=== PATIENT | female | born 1945 | race Caucasian/White ===

== ENCOUNTER → 2017-02-09 | Day surgery (SDC) | payer OTHER ==
[~2017-02-09] VITALS: Ht 165.1 cm; Wt 87.5 kg
[~2017-02-09] MED LIST: AMLO-110 PO; AMLO2.5T PO; ASPCH81X PO; ASPI81TA28 PO; CLR10 PO; FENTANYL CITRATE INJ 50 MCG/1 ML 2 ML VIAL ONE; FLVHFA110 INH; GABA-112 PO; HEPARIN SOD (PORCINE) 1000 UNIT/ML 10 ML VIAL ONE; HMLI7525 SC; INSDGI SC; INSU100I SC; LEVO75TA5 PO; LEVO88TA3 PO; MECL1TAB42 PO; METF1TAB53 PO; METO-217 PO; MIDAZOLAM HCL 1 MG/ML 2ML VIAL ONE; NITROGLYCERIN/D5W 100MCG/ML 20ML SYR ONE; NiCARDipine HCL INJ 2.5 MG/ML 10 ML AMP ONE; ONDANSETRON INJ 2 MG/ML 2 ML VIAL ONE; PRAV40TA PO; PRLSR20 PO; VALS320T PO
[2017-02-09 10:29] VITALS: Ht 165.1 cm; Wt 87.5 kg
[2017-02-09 10:38] VITALS: BP 170/68; PULSE 67; TEMP 36.4; O2SAT 93
--- NOTE | 2017-02-09 11:05 | History & Physical Bridge Note ---
H&P Re-Evaluation Bridge Note: I have examined the patient, reviewed the History & Physical and in the interval since the performance of the History & Physical I have noted the following changes of clinical significance: No changes noted
--- NOTE | 2017-02-09 11:05 | Procedure Note ---
Pre-Mod Sedation Assessment General Date of Moderate Sedation: February 09, 2017. Vital Signs: Vital Signs Past 12 Hours Date Time Temp Pulse Resp B/P Pulse Ox O2 Delivery O2 Flow Rate FiO2 02/09/17 10:38 36.4 67 18 170/68 93 Room Air Review Cardiovascular: regular rate, rhythm, no edema Abdomen: normal bowel sounds, non tender Lungs: chest non-tender Pre-Sedation Airway Assessment Oral Cavity: Dentures Able to Visualize Vocal Cords: Yes Short Thick Neck: No Hx of Sleep Apnea: No Smoking Status: Former Smoker Mallampati Classification: Class III ASA Classification: Class II Procedure Planning Contraindications-for Mod Sed: None Yes Notes The planned sedation has been discussed with the patient and consent obtained. I have identified the patient, determined the appropriateness of sedation and have assessed the patient immediately prior to the procedure. All medicine(s) and interventions are by my order.
--- NOTE | 2017-02-09 11:42 | Procedure Note ---
Post-Mod Sedation Assessment General Date of Moderate Sedation February 09, 2017. Vital Signs: Vital Signs Past 12 Hours Date Time Temp Pulse Resp B/P Pulse Ox O2 Delivery O2 Flow Rate FiO2 02/09/17 10:38 36.4 67 18 170/68 93 Room Air Review - Discharge Criteria Vital Signs Stable: Yes Alert/Oriented/Conversant: Yes Returned to Baseline Mental St: Yes Nausea Absent/Minimal: Yes Pain/Discomfort/Absent/Minimal: Yes Normal/Baseline Respirations: Yes Active Bleeding?: No Pt Received D/C Instructions: Yes Prescriptions Given: None Specific Proced. D/C Criteria Distal Pulses Present (Cardiac: Yes Groin site assessed-Card Cath: N/A Voided Prior To Discharge: N/A Discharged Patients Adult Escort/Transportation: Yes
--- NOTE | 2017-02-09 11:49 | Cardiac Catheterization ---
Procedure Note Procedure Date February 09, 2017. Pre-Procedure Diagnosis Positive Stress Test AUC Score 8 Post-Procedure Diagnosis Normal Coronary Arteries, Normal Intracardiac Pressures Procedure(s) Performed Coronary Angiography, Left Heart Cath Meat Washer Dr. Luciano Executive Assistant(s) Glunt Estimated Blood Loss 10 Medication(s) Fentanyl, Heparin, Nitroglycerin, Versed, Lidocaine 1% Summary of Findings Indication: Positive stress test Access: 6Fr Slender Right radial artery Catheters: Dickerson, JL 3.5 Findings: LM - Angiographically normal LAD - Luminal irregularities in proximal segment; luminal irregularities in 2nd diagonal Circumflex - Angiographically normal RCA - Dominant, large caliber vessel, angiographically normal LVEDP - 8 Arterial Closure: TR Band Summary: 1. Essentially normal coronary arteries. 2. Normal intracardiac filling pressure Recommendations: Continued ASCVD risk factor modification and follow-up with Dr. Aleman Hemodynamics Rest Ao: 135/60/90 Final Ao: 149/62/97 LV: 149/8 Recommendations Medical therapy and/or Counseling Specimens None Radiation Exposure (mGy) 1221 Contrast (mls) 55 Fluids (cc crystalloids) 80 Drains None Anesthesia Moderate Procedural Complication(s) None Disposition Chipper Operator Holding/Recovery ACC Data Cardiac Status Clinical evaluation leading to the procedure CAD Presntation: Stable angina, Positive Stress Test Anginal Classification: CCS II Heart Failure: No, NYHA Class: CCS I Cardiogenic Shock w/in 24Hrs: No Cardiac Arrest w/in 24Hrs: No Imaging studies past 6 months: Yes Stress studies past 6 months: Yes Standard Exercise Stress Test: No Stress Echocardiogram: No Stress Testing w/SPECT MPI: Yes - Positive, Risk/Extent of Ischemia (High) Cardiac CTA: No Coronary Anatomy Dominant: Right Left Main (% Stenosis): Normal LAD (% Stenosis): Normal Circumflex (% Stenosis): Normal RCA (% Stenosis): Normal Diagnostic Physician's Name: Gino Luciano MD Status: Elective Closure Device Percutaneous Entry Location: Radial Closure Device: Radial Band Recommendations: Medical therapy and/or Counseling Intraprocedure Events Significant Dissection: No Perforation: No
--- NOTE | 2017-02-09 11:50 | Discharge Instructions ---
Discharge Instructions Procedure Procedure Date: February 09, 2017. Reason for Visit: Abnormal Stress Test. Discharge Discharge Date: February 09, 2017. Discharge Diagnosis: False positive stress test Last Recorded Wt (Kilograms): 87.5 Anesthesia Post Anesthesia Instructions: If you have had IV Sedation: * Do not drive today. * Resume driving when sand cutter operator permits. * Do not make important decisions or sign legal documents today. * Call surgeon for: 1. Temperature elevations greater than 101 degrees F. 2. Uncontrollable pain. 3. Excessive bleeding. 4. Persistent nausea and vomiting. 5. Medication intolerance (nausea, vomiting or rash). * For nausea and vomiting use only clear liquids such as: tea, soda, bouillon until nausea subsides, then gradually increase diet as tolerated. * If you have any concerns or questions, call your surgeon's office. If physician is unavailable and it is an emergency, call 911 or go to the nearest emergency room. Instructions Activity Recommendations: limitations as noted below Recommended Home Diet: resume previous diet Allergies: Coded Allergies: Acetaminophen (Unverified Adverse Reaction, Unknown, Hallucinations, ) Oxycodone (Unverified Adverse Reaction, Unknown, Hallucinations, 02/09/17) Follow Up Additional Instructions: ACTIVITY RECOMMENDATIONS: It is common to feel weak and fatigue for a few days. * Do not drive or operate any motorized equipment for the next 2 days. * Limit stair usage (2 or 3 trips a day only) for the next 2 days. * Do not lift anything heavier than 10 pounds for the next three days. * Do not engage in vigorous exercise or any sports for the next five days. * You may shower the day after your procedure, but do not immerse the area for three days. Cleanse the site gently with soap and water. SPECIAL CARE INSTRUCTIONS: * You may replace the pressure dressing or band-aid the morning after the procedure. * After your procedure, it is normal to have a small bruise or small lump at the site. Examine your site daily for any change in the bruise or lump, redness, swelling, drainage or numbness. Notify your doctor if any change. BLEEDING: * If there is a small amount of bleeding at the site, lie down and apply firm pressure with a clean cloth for ten minutes. When the bleeding stops, lie quietly keeping the procedure limb straight for six hours. Notify your doctor as soon as possible. * If the bleeding does not stop after ten minutes or if there is a large amount of bleeding or spurting, call 911 immediately. Continue to lie down and hold firm pressure until help arrives. SKIN IRRITATION: * You may experience some redness and/or swelling in the area where radiation was administered. If any skin irritation occurs, please contact your family physician. FOLLOW UP VISIT: Keep any scheduled doctor appointments. Follow-up with: Dr. Aleman as scheduled [facility] Recommendations: Call your doctor if: * Temperature above 101 degrees * Pain not relieved by pain medicine ordered * There is increased drainage or redness from any incision * You have any unanswered questions or concerns. Your Doctors Instructions noted above were prepared by provider Calin Luciano. Patient Signature Section: Patient Instructions Signature Page Norma Somers Patient (or Guardian) Signature/Date: I have read and understand the instructions given to me by my caregivers. Caregiver/RN/Doctor Signature/Date: The above-named patient and/or guardian has received patient instructions on this date. + Original Patient Signature Page (only) stays with chart. Please make copy for patient.
[2017-02-09 14:15] VITALS: BP 144/60; PULSE 62; O2SAT 93
== END | disposition home or self-care (01) ==
LOC: C.CATH 10:10
PROVIDERS: ATTEND Internal Medicine Cardiovascular Disease
DX: R94.39 Abnormal result of other cardiovascular function study (principal); I44.7 Left bundle-branch block, unspecified; I10 Essential (primary) hypertension; E11.9 Type 2 diabetes mellitus without complications; Z85.72 Personal history of non-Hodgkin lymphomas; Z92.21 Personal history of antineoplastic chemotherapy; Z87.891 Personal history of nicotine dependence

== ENCOUNTER → 2017-05-06 | Outpatient (CLI) | payer OTHER ==
[~2017-05-06] MED LIST changes: -AMLO2.5T PO; -ASPCH81X PO; -FENTANYL CITRATE INJ 50 MCG/1 ML 2 ML VIAL ONE; -GABA-112 PO; -HEPARIN SOD (PORCINE) 1000 UNIT/ML 10 ML VIAL ONE; -INSU100I SC; -LEVO75TA5 PO; -MIDAZOLAM HCL 1 MG/ML 2ML VIAL ONE; -NITROGLYCERIN/D5W 100MCG/ML 20ML SYR ONE; -NiCARDipine HCL INJ 2.5 MG/ML 10 ML AMP ONE; -ONDANSETRON INJ 2 MG/ML 2 ML VIAL ONE
--- NOTE | 2017-05-12 07:55 | MAMMOGRAPHY REPORT ---
BILATERAL DIGITAL SCREENING MAMMOGRAM WITH CAD: 05/06/2017 CLINICAL HISTORY: Routine screening. Patient has no complaints. TECHNIQUE: Bilateral CC and MLO views were obtained. Current study was also evaluated with a Compute r Aided Detection (CAD) system. COMPARISON: No prior exams were available for comparison. BREAST COMPOSITION: The tissue of both breasts is almost entirely fatty. FINDINGS: There is evidence of prior reduction mammoplasty. There is a metallic linear marker clip in the upper outer anterior left breast. Scattered punctate benign-appearing microcalcifications. However, there is a 4.5 mm focal asymmetry in the upper outer middle one third of the right breast fo r which comparison to prior outside mammograms would be useful to assess stability. If the outside e xams are not obtained in a timely manner, additional spot compression tomosynthesis views and possibl e ultrasound are recommended. No other suspicious mass, architectural distortion or cluster of microcalcifications is seen bilatera lly. IMPRESSION: ACR BI-RADS CATEGORY 0: INCOMPLETE EVALUATION: NEED ADDITIONAL IMAGING EVALUATION The 4.5 mm focal asymmetry in the upper outer right breast needs comparison to prior outside mammogra ms. If the outside exams are not obtained in a timely manner, additional spot compression tomosynthes is views and possible ultrasound are recommended. The patient will be called to schedule an appointment. Approximately 10% of breast cancers are not detected with mammography. A negative mammographic report should not delay biopsy if a clinically suggestive mass is present. Carolyn Chin M.D. ay/:05/11/2017 17:31:54 Otr Driver: Rajni VIEIRA(Odilia)(Davin), [facility] letter sent: Need Priors 0 BI-RADS Code: ACR BI-RADS Category 0: Incomplete Evaluation: Need Additional Imaging Evaluation
== END | disposition home or self-care (01) ==
LOC: C.MAMM 13:51
PROVIDERS: ATTEND Family Medicine
DX: Z12.31 Encounter for screening mammogram for malignant neoplasm of breast (principal); N64.89 Other specified disorders of breast

== ENCOUNTER → 2017-05-10 | Outpatient (CLI) | payer OTHER ==
[~2017-05-10] MED LIST changes: +GADAVIST IV PRN
--- NOTE | 2017-05-10 15:23 | DIAGNOSTIC IMAGING REPORT ---
MRI LUMBAR SPINE COMBINATION CLINICAL HISTORY: Lumbar spinal stenosis. Low back pain with numbness. L5 posterior vertebral mass. TECHNIQUE: Sagittal and axial T1, T2 and STIR images were obtained. Images were acquired before and after the administration of 9 cc of intravenous Gadavist COMPARISON STUDY: No previous studies for comparison. OBSERVATIONS: The vertebral bodies and posterior elements appear intact. There is no abnormal bony signal present to suggest a marrow replacement process. L1-2: No disc protrusions or extrusions. No evidence of spinal canal or neural foraminal compromise. L2-3: No disc protrusions or extrusions. No evidence of spinal canal or neural foraminal compromise. L3-4: There is a mild circumferential disc bulge. There is marked loss in disc space height. No focal herniations are visualized. There is no significant spinal or foraminal stenosis L4-5: No disc protrusions or extrusions. No evidence of spinal canal or neural foraminal compromise. L5-S1: There is a grade 1 spondylolisthesis of L5 and S1. There is facet joint arthropathy. There is mild spinal stenosis. There is mild bilateral foraminal narrowing. Postcontrast images reveal no pathologically enhancing masses. There are bilateral renal cysts. The conus medullaris and cauda equina appear normal. IMPRESSION: Multilevel spondylitic changes. Grade 1 spondylolisthesis of L5 and S1. Mild L5-S1 spinal stenosis. Mild bilateral L5-S1 foraminal narrowing. Electronically signed by: Ezra Frank M.D. 05/10/2017 3:22 PM Dictated Date/Time: 05/10/2017 3:15 PM
== END | disposition home or self-care (01) ==
LOC: C.MRIBC 13:46
PROVIDERS: ATTEND Physical Medicine & Rehabilitation
DX: M48.06 Spinal stenosis, lumbar region (principal)

== ENCOUNTER → 2017-05-14 | Outpatient (CLI) | payer OTHER ==
[~2017-05-14] MED LIST changes: -GADAVIST IV PRN
[2017-05-15 07:23] LABS: ESTIMATED AVERAGE GLUCOSE 183 mg/dl; HA1C FLAG Normal (Normal)
== END | disposition home or self-care (01) ==
LOC: C.LAB1850 16:13
PROVIDERS: ATTEND Family Medicine
DX: E11.9 Type 2 diabetes mellitus without complications (principal)

== ENCOUNTER → 2017-06-24 | Outpatient (CLI) | payer OTHER ==
--- NOTE | 2017-06-24 13:56 | MAMMOGRAPHY REPORT ---
UNILATERAL RIGHT DIGITAL DIAGNOSTIC MAMMOGRAM TOMOSYNTHESIS AND TARGETED RIGHT ULTRASOUND: 06/24/2017 CLINICAL HISTORY: Callback from screening mammogram for right breast asymmetry. TECHNIQUE: Breast tomosynthesis in addition to standard 2D mammography was performed. Spot compress ion right CC and MLO 2-D and tomosynthesis images were obtained. COMPARISON: Comparison is made to exam dated: 05/06/2017 mammogram - [facility]. BREAST COMPOSITION: The tissue of the right breast is almost entirely fatty. FINDINGS: The previously described focal asymmetry in the right upper outer quadrant effaces on the a dditional spot compression views, with no suspicious mass, architectural distortion, or other suspici ous findings seen on the additional images. A fat density round circumscribed 4 mm mass is seen with in the right superior anterior breast on the MLO tomosynthesis images, consistent with a benign oil c yst. Targeted ultrasound was performed of the right upper outer quadrant of the region of the mammographic asymmetry. No suspicious masses or other suspicious sonographic abnormalities are evident. In the right breast at 10:00, 3 cm from the nipple, there is an incidental round circumscribed anechoic 3 x 2 mm mass. This corresponds with the fat density mammographic mass and is consistent with a benign o il cyst, likely related to the prior reduction mammoplasty. IMPRESSION: ACR BI-RADS CATEGORY 2: BENIGN, TARGETED ULTRASOUND ACR BI-RADS CATEGORY 2: BENIGN The right breast asymmetry effaces on the additional views, without corresponding suspicious sonograp hic abnormality evident. Findings are benign and compatible with normal fibroglandular tissue. Ther e is no mammographic or targeted sonographic evidence of malignancy. A 1 year screening mammogram is recommended. The patient has been verbally notified of the results. Approximately 10% of breast cancers are not detected with mammography. A negative mammographic report should not delay biopsy if a clinically suggestive mass is present. Avril Cai M.D. /:06/24/2017 11:39:30 Boxing And Pressing Supervisor: Purvi Carter, [facility] letter sent: Normal 1/2 BI-RADS Code: ACR BI-RADS Category 2: Benign Ultrasound BI-RADS: ACR BI-RADS Category 2: Benign
== END | disposition home or self-care (01) ==
LOC: C.MAMM 10:58
PROVIDERS: ATTEND Family Medicine
DX: N64.89 Other specified disorders of breast (principal)

== ENCOUNTER → 2017-08-20 | Day surgery (SDC) | payer OTHER ==
[2017-08-16 10:45] VITALS: Ht 160 cm; Wt 90.9 kg
[~2017-08-20] VITALS: Ht 160 cm; Wt 90.9 kg
[~2017-08-20] MED LIST changes: -AMLO-110 PO; +AMLO2.5T PO; +ASPCH81X PO; -ASPI81TA28 PO; +BUPIVACAINE 0.25% 2.5MG/ML PF 10 ML VIAL ONE; -CLR10 PO; -FLVHFA110 INH; +GABA-112 PO; -HMLI7525 SC; +INSU100I SC; +LEVO75TA5 PO; -LEVO88TA3 PO; +LIDOCAINE MPF 1% INJ 30 ML SDV (L&D) INFIL ONE; -MECL1TAB42 PO; -METF1TAB53 PO
[2017-08-20 14:30] VITALS: TEMP 37.1
--- NOTE | 2017-08-20 14:41 | Discharge Instructions ---
Discharge Instructions Date of Service Aug 20, 2017. Visit Reason for Visit: Lumbar Spondylolisthesis Discharge Discharge Diagnosis / Problem: low back pain Discharge Goals Goal(s): Decrease discomfort, Improve function Activity Recommendations Activity Limitations: resume your previous activity Anesthesia . Post Anesthesia Instructions: If you have had General Anesthesia or IV Sedation: * Do not drive today. * Resume driving when surgeon permits. * Do not make important decisions or sign legal documents today. * Call surgeon for: 1. Temperature elevations greater than 101 degrees F. 2. Uncontrollable pain. 3. Excessive bleeding. 4. Persistent nausea and vomiting. 5. Medication intolerance (nausea, vomiting or rash). * For nausea and vomiting use only clear liquids such as: tea, soda, bouillon until nausea subsides, then gradually increase diet as tolerated. * If you have any concerns or questions, call your surgeon's office. If physician is unavailable and it is an emergency, call 911 or go to the nearest emergency room. . Diet Recommendations Recommended Home Diet: resume previous diet Procedures Procedures Performed: BILATERAL L5-S1 MEDIAL BRANCH BLOCK Pending Studies Studies pending at discharge: no Medical Emergencies . Who to Call and When: Medical Emergencies: If at any time you feel your situation is an emergency, please call 911 immediately. . Non-Emergent Contact Non-Emergency issues call your: Specialist . . "Provider Documentation" section prepared by Ender Moctezuma. .
[2017-08-20 14:47] VITALS: BP 153/73; PULSE 56; O2SAT 95
--- NOTE | 2017-08-20 15:00 | OPERATIVE REPORT ---
DATE OF OPERATION: 08/20/2017 PREOPERATIVE DIAGNOSES: Chronic low back pain and bilateral L5-S1 facet arthropathy. INDICATIONS: The patient is a 71-year-old white female who has chronic low back pain. Imaging study reveals significant facet arthropathy with an increased facet joint signal distally. Her physical examination correlates with this. She had previous epidural steroid injections done in [place] that were not helpful for her pain. She presents today as the etiology of her pain is felt to be generated in the facet joints. She presents today for blocking to confirm this. PHYSICAL EXAMINATION: GENERAL: Pleasant female seated comfortably. MUSCULOSKELETAL: Lumbar paraspinal muscles were palpated and noted be tender, worse with extension and rotation, particularly in the L5-S1 region bilaterally. Sciatic notches were nontender. No focal weakness. CONSENT: Verbal and written consent was obtained from the patient. Risks and benefits were reviewed. Risks include, but are not limited to abscess and allergic reaction. She wishes to proceed. DESCRIPTION OF PROCEDURE: The patient was taken back to the special procedures room of the [facility], where she was maintained in a prone position. Backside was cleansed with Betadine x3 and a dry sterile dressing was applied. Fluoroscope was used to identify the L5 transverse process and the sacral ala on the left side. Overlying skin was anesthetized with 1.25 mL of lidocaine 1% with a 25-gauge 1-1/2 inch needle. A 25-gauge 3-1/2 inch spinal needle was then directed under fluoroscopic guidance contacting the bone at each site. It was then injected after negative aspiration with 1 mL of bupivacaine 0.25%. The right L5 transverse process junction and the right sacral ala were then fluoroscopically identified. Overlying skin was anesthetized with 1.25 mL of lidocaine 1% with a 25-gauge 1-1/2 inch needle. A 25-gauge 3-1/2 inch spinal needle was then directed contacting bone on each site and was injected with a mL of bupivacaine 0.25%. Injections were well tolerated. DISPOSITION: 1. The patient was taken out into the discharge recovery area, where she will be discharged home once discharge criteria have been met. 2. She will follow up in the [facility] office in 4 weeks' time. She has been asked to keep a pain diary of next 48 hours to determine the amount of pain relief that is achieved. I attest to the content of the Intraoperative Record and any orders documented therein. Any exception s are noted below.
== END | disposition home or self-care (01) ==
LOC: X.SURG 13:12
PROVIDERS: ATTEND Physical Medicine & Rehabilitation
DX: M43.17 Spondylolisthesis, lumbosacral region (principal); M54.16 Radiculopathy, lumbar region; M54.5 Low back pain; G89.29 Other chronic pain; Z79.82 Long term (current) use of aspirin

== ENCOUNTER → 2017-12-13 | Day surgery (SDC) | payer OTHER ==
[2017-11-30 08:58] VITALS: Ht 160 cm; Wt 90.9 kg
[~2017-12-13] VITALS: Ht 160 cm; Wt 90.9 kg
[~2017-12-13] MED LIST changes: -BUPIVACAINE 0.25% 2.5MG/ML PF 10 ML VIAL ONE; +LIDOCAINE HCL 1% MPF 5 ML VIAL ONE; -LIDOCAINE MPF 1% INJ 30 ML SDV (L&D) INFIL ONE; +SODIUM CHLORIDE 0.9% INJ 10 ML VIAL ONE
--- NOTE | 2017-12-13 15:02 | [facility] Post Operative Brief Note ---
Immediate Operative Summary Operative Date Dec 13, 2017. Pre-Operative Diagnosis Chronic low back pain; lumbar spondylolisthesis with increased radiculopathy Post-Operative Diagnosis same Procedure(s) Performed Caudal Epidural Steroid Injection Surgeon Dr Ender Moctezuma Automobile Locator Surgeon(s) None Estimated Blood Loss 0 Findings Consistent with Post-Op Diagnosis Specimens NA Drains None Anesthesia Type Local Complication(s) none Disposition Disposition:
[2017-12-13 15:04] VITALS: TEMP 37
--- NOTE | 2017-12-13 15:04 | Discharge Instructions ---
Discharge Instructions Date of Service Dec 13, 2017. Visit Reason for Visit: Lumbar Radiculopathy Discharge Discharge Diagnosis / Problem: low back pain Discharge Goals Goal(s): Decrease discomfort, Improve function Activity Recommendations Activity Limitations: resume your previous activity Anesthesia . Post Anesthesia Instructions: If you have had General Anesthesia or IV Sedation: * Do not drive today. * Resume driving when surgeon permits. * Do not make important decisions or sign legal documents today. * Call surgeon for: 1. Temperature elevations greater than 101 degrees F. 2. Uncontrollable pain. 3. Excessive bleeding. 4. Persistent nausea and vomiting. 5. Medication intolerance (nausea, vomiting or rash). * For nausea and vomiting use only clear liquids such as: tea, soda, bouillon until nausea subsides, then gradually increase diet as tolerated. * If you have any concerns or questions, call your surgeon's office. If physician is unavailable and it is an emergency, call 911 or go to the nearest emergency room. . Diet Recommendations Recommended Home Diet: resume previous diet Procedures Procedures Performed: Caudal Epidural Steroid Injection Pending Studies Studies pending at discharge: no Medical Emergencies . Who to Call and When: Medical Emergencies: If at any time you feel your situation is an emergency, please call 911 immediately. . Non-Emergent Contact Non-Emergency issues call your: Specialist . . "Provider Documentation" section prepared by Ender Moctezuma. .
[2017-12-13 15:25] VITALS: BP 165/82; PULSE 67; O2SAT 95
--- NOTE | 2017-12-13 17:09 | OPERATIVE REPORT ---
DATE OF OPERATION: 12/13/2017 PREOPERATIVE DIAGNOSES: Chronic low back pain, lumbar spondylolisthesis with a bilateral radiculopathy. POSTOPERATIVE DIAGNOSES: Same. PROCEDURE: Caudal epidural steroid injection under fluoroscopic guidance. INDICATIONS: The patient is a 72-year-old white female who is followed for chronic low back pain, lumbar spondylolisthesis and radiculopathy. She was describing increased radicular problems on 12/06/2017 that was bad as a 10/10 at times. She presents today for an epidural to provide her with relief of the proximal radicular pain that she experiences. PHYSICAL EXAMINATION: Pleasant female seated comfortably. Sciatic notch sensitivity bilaterally radiates along the proximal L5 dermatomal distribution. She is without focal weakness. CONSENT: Verbal and written consent was obtained from the patient. Risks and benefits were reviewed. Risks include but are not limited to epidural abscess, epidural hematoma, allergic reaction, dural puncture. The patient wishes to proceed. PROCEDURE: The patient was taken back to the special procedures room of the [facility] where she was maintained in a prone position. Backside was cleansed with Betadine x3 and a dry sterile dressing was applied. Fluoroscope was used to identify the sacral hiatus and overlying skin was anesthetized with 5 mL of lidocaine 1% with 25 gauge 1.5 inch needle. A 25 gauge 3.5 inch spinal needle was then directed under fluoroscopic guidance lateral guidance into the sacral hiatus and into the canal about 3.25 inches. She then underwent injection after negative aspiration of 40 mg Depo-Medrol, 4 mL of preservative free sodium chloride. Injection was well tolerated. DISPOSITION: 1. The patient is taken out into the discharge recovery area where she will be discharged home once discharge criteria are met. 2. Follow up in the [facility] office in 4 weeks' time. I attest to the content of the Intraoperative Record and any orders documented therein. Any exception s are noted below.
== END | disposition home or self-care (01) ==
LOC: X.SURG 13:31
PROVIDERS: ATTEND Physical Medicine & Rehabilitation
DX: M43.16 Spondylolisthesis, lumbar region (principal); M54.16 Radiculopathy, lumbar region; Z79.82 Long term (current) use of aspirin; Z79.4 Long term (current) use of insulin; Z79.899 Other long term (current) drug therapy

== ENCOUNTER → 2018-04-12 | Outpatient (CLI) | payer OTHER ==
[~2018-04-12] MED LIST changes: -GABA-112 PO; -LIDOCAINE HCL 1% MPF 5 ML VIAL ONE; -SODIUM CHLORIDE 0.9% INJ 10 ML VIAL ONE
--- NOTE | 2018-04-12 15:45 | DIAGNOSTIC IMAGING REPORT ---
R FOOT 2 VIEWS CLINICAL HISTORY: XAY FOOT 2 VIEWS RIGHT pain COMPARISON: None. DISCUSSION: The bones and joint spaces appear intact. There is no evidence of fracture, dislocation or bony disease. Small heel spur. IMPRESSION: Small heel spur. Otherwise negative study. The above report was generated using voice recognition software. It may contain grammatical, syntax or spelling errors. Electronically signed by: Ian Jean Baptiste M.D. 04/12/2018 3:44 PM Dictated Date/Time: 04/12/2018 3:43 PM
== END | disposition home or self-care (01) ==
LOC: C.LAB1850 15:25
PROVIDERS: ATTEND Family Medicine
DX: M79.671 Pain in right foot (principal)

== ENCOUNTER 2019-01-30 09:39 | Inpatient (IN) ==
[2019-01-30 10:46] LABS: Basophils # (auto) 0.03 K/uL (0-0.2); Basophils % (auto) 0.6 %; Eosinophils # (auto) 0.42 K/uL (0-0.5); Eosinophils % (auto) 7.9 %; Hematocrit (blood only) 38.6 % (37-47); Hemoglobin 13.3 g/dL (12.0-16.0); Immature Granulocytes # (auto) 0.01 K/uL (0.00-0.02); Immature Granulocytes % (auto) 0.2 %; Lymphocytes # (auto) 1.84 K/uL (1.2-3.4); Lymphocytes % (auto) 34.7 %; Mean Corpuscular Hgb Conc 34.5 g/dL (32-36); Mean Corpuscular Volume 83.7 fL (80-100); Mean Platelet Volume 10.8 fL (7.4-10.4); Monocytes # (auto) 0.48 K/uL (0.11-0.59); Neutrophils # (auto) 2.53 K/uL (1.4-6.5); Neutrophils % (auto) 47.6 %; Platelet Count 172 K/uL (130-400); RDW Coefficient of Variation 14.1 % (11.5-14.5); RDW Standard Deviation 43.2 fL (36.4-46.3); Red Blood Count 4.61 M/uL (4.2-5.4); White Blood Count 5.31 K/uL (4.8-10.8)
[2019-01-30 10:57] LABS: Partial Thromboplastin Time 25.8 Seconds (21.0-31.0)
[2019-01-30 11:03] LABS: Albumin Level 3.5 gm/dl (3.4-5.0); BUN Creatinine Ratio 18.2 (10-20); Calcium 9.2 mg/dl (8.5-10.1); Est GFR (African American) 54.5
[2019-01-30 11:06] LABS: Bilirubin,Total 0.3 mg/dl (0.2-1); Globulin 3.4 gm/dl (2.5-4.0); Total Protein 6.9 gm/dl (6.4-8.2)
--- NOTE | 2019-01-30 11:17 | XRay Report ---
XR chest 1V portable CLINICAL HISTORY: cough dyspnea COMPARISON STUDY: No previous studies for comparison. FINDINGS: Mild cardiomegaly. Diaphragms smooth. Lungs are clear. IMPRESSION: Mild cardiomegaly. Otherwise negative study. The above report was generated using voice recognition software. It may contain grammatical, syntax or spelling errors. Electronically signed by: Ian Jean Baptiste M.D. 01/30/2019 11:16 AM
--- OUTSIDE RECORDS SUMMARY | 2019-01-30 11:54 | External Medical Summary | Continuity of Care Document ---
:1945 Author Name Gertrudis Mazariegos, Provider Address Unavailable Unavailable , Care Team Providers Name Role Phone NonMGANGAG Delilah, Provider Unavailable [email or web address] Unavailable Unavailable Problems Abnormal nuclear stress test (794.39) (R94.39) Diabetes mellitus (250.00) (E11.9) LBBB (left bundle branch block) (426.3) (I44.7) Hypercholesterolemia (272.0) (E78.00) CAD (coronary artery disease) (414.00) (I25.10) LVH (left ventricular hypertrophy) (429.3) (I51.7) Hypertension (401.9) (I10) Allergies and Adverse Reactions Percocet TABS (Allergy) Prinivil TABS (Allergy) Reaction: Cough Zithromax Z-Elliott TABS (Allergy) Medications Medications not documented Procedures Procedures not documented Immunizations Immunizations not documented Social History - Smoking Status Former smoker Plan of Treatment Planned Observations Planned Goals not documented Results No Known Results Results not documented Encounters Appointment; Gino Luciano M.D. 09-Feb-2017 11:00 Encounter Diagnosis: Problem not documented
--- NOTE | 2019-01-30 12:07 | CT Scan Report ---
CT head/brain wo con CLINICAL HISTORY: 73 years-old Female presenting with stroke symptoms yesterday at 4:30 or 5:00 PM, l eft leg and left arm numbness, persistent numbness since that time, some left leg weakness. TECHNIQUE: Multidetector CT imaging of the head was performed without the use of intravenous contrast . IV contrast: None. One or more dose lowering techniques were used consistent with the principles of ALARA (as low as reasonably achievable), including automatic exposure control, mA or kV adjustment t o individual patient size, and/or use of iterative reconstruction. COMPARISON: None. CT DOSE (mGy.cm): The estimated cumulative dose is 740.19 mGy.cm. FINDINGS: [employer] topogram: Unremarkable. Ventricles and sulci normal in size. No hemorrhage. Old lacunar infarct in the body of the right caud ate. Possible additional old lacunar infarct in the right thalamus. No acute territorial infarct. No mass effect or midline shift. No extra-axial fluid collection. Paranasal sinuses and mastoid air cell s clear. Calvarium intact. Intracranial atherosclerosis noted. IMPRESSION: 1. No acute intracranial abnormality. No hemorrhage. 2. Suspected old lacunar infarcts in the right body of the caudate and right thalamus. Electronically signed by: Bill Galvan M.D. 01/30/2019 12:05 PM
[2019-01-30] MEDS ORDERED: ASPIRIN CHEW 324 MG PO STA (13:05)
--- NOTE | 2019-01-30 14:14 | History & Physical Report ---
Date of Service January 30, 2019 Assessment & Plan (1) Stroke: Patient with new left sided deficit, symptoms started at 16:30 yesterday. Has history of HTN, HLP, DM and suspected old CVA per CT read. Concern for new CVA -Admit to PCU, cardiac monitoring, Neuro checks -Check MRI brain, MRA head and neck -Check 2D echocardiogram -Check lipid panel and HgAIC -Limb restriction to left side -Swallow evaluation, aspiration precautions -Start Plavix 75mg po daily -Start Lipitor 40mg po daily -Will hold Carvedilol and Valsartan/HCTZ to allow for permissive hypertension -Labetalol IV PRN SBP > 200mmHg -Neurology consultation -appreciate assistance with this case Present on Admission?: Yes (2) Hypertension: Blood pressure presently 145/77 -Hold Carvedilol and Diovan for now to allow for permissive hypertension -Labetalol IV PRN -Continue to monitor Present on Admission?: Yes (3) Diabetes: Patient with DM with peripheral neuropathy. -Check HgAIC -Lantus 25u BID -ISS -CC diet as tolerated -Continue to monitor Present on Admission?: Yes (4) Dyslipidemia: Chronic -Check lipid panel -Atorvastatin 40mg po daily (5) GERD (gastroesophageal reflux disease): Chronic. Stable -Continue Protonix daily (6) Hypothyroid: Chronic. -TSH with AM labs F/E/N - Heplock. Monitor electrolytes and replete as needed. Dysphagia screening, CC diet as tolerated with aspiration precautions Ppx - SCDs to bialteral LEs, continue home Protonix Code - DNR per discussion with patient Dispo -Admit to PCU History of Present Illness Chief Complaint: left sided weakness Primary Care Provider: Moe Kraft MD Norma Somers is a pleasant 73yo C female with history of HTN, HLP and DM, remote history of NHL s/p chemotherapy now in remission presenting with stroke- like symptoms. Patient reports that yesterday afternoon around 16:30 she noticed that her LUE and LLE felt "lumpy", tingly and slightly weak. She had difficulty walking due to weakness. She took a nap in the afternoon and when she woke up the symptoms were slightly improved. This AM she decided to come to the ER because her symptoms are still present. Overall she describes a tingling sensation in her left face, arm and leg as well as weakness of her arm and leg. She had difficulty washing her face this morning. She has a slight headache which started today in the ER. She denies disturbance in vision or speech. No additional complaints at this time. Her daughter reports that her Carvedilol was recently increased. She was also recently taken off her statin. ER Course: ASA 324mg Allergies Allergy/AdvReac Type Severity Reaction Status Date / Time adhesive AdvReac Mild Redness of Verified 01/30/19 11:32 Skin oxycodone AdvReac Unknown Hallucinati Verified 01/30/19 11:32 ons Home Medications Home Medications Medication Instructions Recorded Confirmed Type Lantus U-100 Insulin 50 unit SUBCUT QPM 05/18/18 01/30/19 History Novolog U-100 Insulin aspart 12 unit SUBCUT TID 05/18/18 01/30/19 History albuterol sulfate 2 puff INHALATION Q6H PRN 05/18/18 01/30/19 History aspirin [Aspir-81] 81 mg PO QAM 05/18/18 01/30/19 History metformin 500 mg PO QPM 05/18/18 01/30/19 History omeprazole 20 mg PO BID 05/18/18 01/30/19 History carvedilol 3.125 mg PO BID 01/30/19 01/30/19 History carvedilol 6.25 mg PO BID 01/30/19 01/30/19 History levothyroxine 75 mcg PO DAILY 01/30/19 01/30/19 History valsartan-hydrochlorothiazide 1 tab PO QAM 01/30/19 01/30/19 History Past Med/Surg History Medical History Cardiac murmur Chronic back pain Diabetes mellitus, type 2 F/U PCP GERD (gastroesophageal reflux disease) History of hysterectomy VENTURA BSO Hyperlipidemia Hypertension Hypothyroidism Non-Hodgkins lymphoma DX'D 20 YRS AGO-F/U PCP NOW Osteoarthritis Peripheral neuropathy BILAT LEGS SOB (shortness of breath) on exertion Surgical History History of appendectomy History of arthroscopy R/L History of dilatation and curettage History of tonsillectomy Slow to wake up after anesthesia AND PONV Status post breast reduction BILAT Family History Family/Other Family history of diabetes mellitus Social History Preferred Language: Vincentian Communication Ability: Effective Beliefs That Will Affect Care: None Current Living Situation: Alone Other Information That Helps Us Care for You: No Feels Safe at Home: Yes Safety Concerns: Feels Safe At This Time Smoking Status: Never smoker Second Hand Exposure: No Hx Alcohol Use: Yes Alcohol type: beer and wine Hx Substance Use: No Review of Systems Review of Systems: All systems reviewed & are unremarkable except as noted in HPI & below States her LUE and LLE appear swollen Physical Exam Physical Exam: General: patient resting comfortably, NAD, non-toxic in appearance, AA&O x 4 Skin: warm, dry, intact, no rashes or lesions HEENT: NC/AT, PERRL, EOMI, anicteric sclera, conjunctiva without injection, external ear normal to inspection and nontender, nares patent, moist mucus membranes, dentition intact, no oropharyngeal lesions, neck supple, trachea midline, no LAD, no thyromegaly, no JVD Heart: +S1/S2, regular, 3/6 JOHN at 2nd right ICS with radiation to carotids and across the precordium Lungs: equal air entry bilaterally, no rales/rhonchi/wheezes Abd: +BS, soft, NT/ND, no masses/organomegaly/ascites Ext: warm, 2+ pulses in UE/LE bilaterally, no clubbing/cyanosis, trace pitting edema equal bilaterally Neuro: AA&O x 4, speech fluent and appropriate, no facial droop, CN exam with diminished sensation to light touch in left face, diminished strength with left SCM and shoulder shrug, diminished sensation to light touch in LUE and LLE, MS 4/5 in LUE and LLE, +pronator drift LUE, gait not assessed Results & Data Vital Signs (Past 12 Hours) Vital Signs Temp Pulse Pulse Resp BP BP Pulse Ox 01/30/19 13:32 62 20 127/79 98 01/30/19 12:08 68 18 177/84 H 92 01/30/19 11:13 66 20 93 01/30/19 11:06 68 20 210/98 H 95 01/30/19 09:54 36.9 C 68 20 196/94 H 93 Laboratory Results Lab Results 01/30/19 01/30/19 01/30/19 Range/Units 10:34 10:34 10:34 WBC 5.31 (4.8-10.8) K/uL RBC 4.61 (4.2-5.4) M/uL Hgb 13.3 (12.0-16.0) g/dL Hct 38.6 (37-47) % MCV 83.7 (80-100) fL MCH 28.9 (25-34) pg MCHC 34.5 (32-36) g/dL RDW Std Deviation 43.2 (36.4-46.3) fL RDW Coeff of Jose 14.1 (11.5-14.5) % Plt Count 172 (130-400) K/uL MPV 10.8 H (7.4-10.4) fL Immature Gran % (Auto) 0.2 % Neut % (Auto) 47.6 % Lymph % (Auto) 34.7 % [place] % (Auto) 9.0 % Eos % (Auto) 7.9 % Baso % (Auto) 0.6 % Immature Gran # (Auto) 0.01 (0.00-0.02) K/uL Neut # (Auto) 2.53 (1.4-6.5) K/uL Lymph # (Auto) 1.84 (1.2-3.4) K/uL [place] # (Auto) 0.48 (0.11-0.59) K/uL Eos # (Auto) 0.42 (0-0.5) K/uL Baso # (Auto) 0.03 (0-0.2) K/uL PT 10.0 (9.0-12.0) Seconds INR 1.0 (0.9-1.1) APTT 25.8 (21.0-31.0) Seconds PTT Ratio 1.0 Sodium 139 (136-145) mmol/L Potassium 4.0 (3.5-5.1) mmol/L Chloride 105 (98-107) mmol/L Carbon Dioxide 26 (21-32) mmol/L Anion Gap 8.0 (3-11) BUN 21 H (7-18) mg/dl Creatinine 1.14 (0.6-1.2) mg/dl Est Cr Clr Drug Dosing 51.0 ml/min Est GFR ( Amer) 54.5 Est GFR (Non-Af Amer) 47.0 BUN/Creatinine Ratio 18.2 (10-20) Glucose 238 H (70-99) mg/dl POC Glucose (70-99) Calcium 9.2 (8.5-10.1) mg/dl Total Bilirubin 0.3 (0.2-1) mg/dl AST 19 (15-37) U/L ALT 31 (12-78) U/L Alkaline Phosphatase 87 (45-117) U/L Total Protein 6.9 (6.4-8.2) gm/dl Albumin 3.5 (3.4-5.0) gm/dl Globulin 3.4 (2.5-4.0) gm/dl Albumin/Globulin Ratio 1.0 (0.9-2) 01/30/19 01/30/19 Range/Units 14:47 16:28 WBC (4.8-10.8) K/uL RBC (4.2-5.4) M/uL Hgb (12.0-16.0) g/dL Hct (37-47) % MCV (80-100) fL MCH (25-34) pg MCHC (32-36) g/dL RDW Std Deviation (36.4-46.3) fL RDW Coeff of Jose (11.5-14.5) % Plt Count (130-400) K/uL MPV (7.4-10.4) fL Immature Gran % (Auto) % Neut % (Auto) % Lymph % (Auto) % [place] % (Auto) % Eos % (Auto) % Baso % (Auto) % Immature Gran # (Auto) (0.00-0.02) K/uL Neut # (Auto) (1.4-6.5) K/uL Lymph # (Auto) (1.2-3.4) K/uL [place] # (Auto) (0.11-0.59) K/uL Eos # (Auto) (0-0.5) K/uL Baso # (Auto) (0-0.2) K/uL PT (9.0-12.0) Seconds INR (0.9-1.1) APTT (21.0-31.0) Seconds PTT Ratio Sodium (136-145) mmol/L Potassium (3.5-5.1) mmol/L Chloride (98-107) mmol/L Carbon Dioxide (21-32) mmol/L Anion Gap (3-11) BUN (7-18) mg/dl Creatinine (0.6-1.2) mg/dl Est Cr Clr Drug Dosing ml/min Est GFR ( Amer) Est GFR (Non-Af Amer) BUN/Creatinine Ratio (10-20) Glucose (70-99) mg/dl POC Glucose 124 H 157 H (70-99) Calcium (8.5-10.1) mg/dl Total Bilirubin (0.2-1) mg/dl AST (15-37) U/L ALT (12-78) U/L Alkaline Phosphatase (45-117) U/L Total Protein (6.4-8.2) gm/dl Albumin (3.4-5.0) gm/dl Globulin (2.5-4.0) gm/dl Albumin/Globulin Ratio (0.9-2) Diagnostic Findings XR chest 1V portable CLINICAL HISTORY: cough dyspnea COMPARISON STUDY: No previous studies for comparison. FINDINGS: Mild cardiomegaly. Diaphragms smooth. Lungs are clear. IMPRESSION: Mild cardiomegaly. Otherwise negative study. The above report was generated using voice recognition software. It may contain grammatical, syntax or spelling errors. Electronically signed by: Ian Jean Baptiste M.D. 01/30/2019 11:16 AM Dictated: 01/30/19 1115 Transcribed: 01/30/[address] head/brain wo con CLINICAL HISTORY: 73 years-old Female presenting with stroke symptoms yesterday at 4:30 or 5:00 PM, left leg and left arm numbness, persistent numbness since that time, some left leg weakness. TECHNIQUE: Multidetector CT imaging of the head was performed without the use of intravenous contrast. IV contrast: None. One or more dose lowering techniques were used consistent with the principles of ALARA (as low as reasonably achievable), including automatic exposure control, mA or kV adjustment to indiv idual patient size, and/or use of iterative reconstruction. COMPARISON: None. CT DOSE (mGy.cm): The estimated cumulative dose is 740.19 mGy.cm. FINDINGS: [employer] topogram: Unremarkable. Ventricles and sulci normal in size. No hemorrhage. Old lacunar infarct in the body of the right caudate. Possible additional old lacunar infarct in the right thalamus. No acute territorial infarct. No mass effect or midline shift. No extra-axial fluid collection. Paranasal sinuses and mastoid air cells clear. Calvarium intact. Intracranial atherosclerosis noted. IMPRESSION: 1. No acute intracranial abnormality. No hemorrhage. 2. Suspected old lacunar infarcts in the right body of the caudate and right thalamus. Electronically signed by: Bill Galvan M.D. 01/30/2019 12:05 PM Dictated: 01/30/19 1202 Transcribed: 01/30/19 1202 ECG Additional Comments: EKG with NSR, LBBB, no prior studies Code Status & VTE Plan Code Status DNR per discussion with patient VTE Prophylaxis Plan VTE Prophylaxis will be ordered: Yes (1) Diabetes Diabetes mellitus type: type 2 Diabetes mellitus usp insulin use: with usp use Diabetes mellitus complication status: with neurologic complications Diabetes mellitus complication detail: with polyneuropathy Qualified Code(s): E11.42 - Type 2 diabetes mellitus with diabetic polyneuropathy; Z79.4 - correction (current) use of insulin (2) GERD (gastroesophageal reflux disease) Esophagitis presence: esophagitis presence not specified Qualified Code(s): K21.9 - Gastro-esophageal reflux disease without esophagitis (3) Hypertension Hypertension type: essential hypertension Qualified Code(s): I10 - Essential (primary) hypertension (4) Stroke CVA mechanism: unspecified Qualified Code(s): I63.9 - Cerebral infarction, unspecified (5) Hypothyroid Hypothyroidism type: acquired Qualified Code(s): E03.9 - Hypothyroidism, unspecified
[2019-01-30] MEDS ORDERED: GLUCAGON FOR INJ 1 MG VIAL SQ PRN (14:56)
[2019-01-30] MEDS ORDERED: ALBUTEROL HFA 8 GM INHALER INH PRN (14:56)
[2019-01-30] MEDS ORDERED: GLUCOSE 10 TABS/TUBE PO PRN (14:56)
[2019-01-30] MEDS ORDERED: DEXTROSE 50% 50 ML SYRINGE IV PRN (14:56)
[2019-01-30] MEDS ORDERED: CARBOHYDRATES FOR HYPOGLYCEMIA PO PRN (14:56)
[2019-01-30] MEDS ORDERED: PHARMACIST DISCHARGE MED REC CONSULT PRN ×2 (14:56)
[2019-01-30] MEDS ORDERED: GLUCOSE 40% GEL 15 GM TUBE PO PRN (14:56)
[2019-01-30] MEDS: INSULIN ASPART 100 UNITS/ML 3 ML PEN SC SCH ×3 (15:53→22:42)
--- NOTE | 2019-01-30 16:00 | Emergency Department Note ---
Entered by Ignacia Amaral acting as a scribe for History of Present Illness General Chief complaint: Neuro Symptoms/Deficit Stated complaint: hypertension, left side numbness Time Seen by Provider: 01/30/19 10:35 Source: patient Mode of arrival: ambulatory Limitations: no limitations History of Present Illness Provider complaint: numbness Onset (ago): day(s) (yesterday) Location: upper extremity and left Radiation: extremity (leg) Pain Consistency: + other (persistent) Quality: + other (tingling) Associated symptoms: + cough and + weakness; no chest pain and no shortness of breath The patient is a 73 year old female who presents to the ER with complaints of a persistent numbness that began yesterday. The patient reports that around 1630 yesterday evening she did experience some left hand tingling. She states that shortly after she experienced numbness in her left leg as well. She notes that her symptoms have persisted since. She denies any similar episodes in the past. She also denies any chest pain or shortness of breath but reports she has had a cough for some time. Home Medications Home Medications Medication Instructions Recorded Confirmed Type Lantus U-100 Insulin 50 unit SUBCUT QPM 05/18/18 01/30/19 History Novolog U-100 Insulin aspart 12 unit SUBCUT TID 05/18/18 01/30/19 History albuterol sulfate 2 puff INHALATION Q6H PRN 05/18/18 01/30/19 History aspirin [Aspir-81] 81 mg PO QAM 05/18/18 01/30/19 History metformin 500 mg PO QPM 05/18/18 01/30/19 History omeprazole 20 mg PO BID 05/18/18 01/30/19 History carvedilol 3.125 mg PO BID 01/30/19 01/30/19 History carvedilol 6.25 mg PO BID 01/30/19 01/30/19 History levothyroxine 75 mcg PO DAILY 01/30/19 01/30/19 History valsartan-hydrochlorothiazide 1 tab PO QAM 01/30/19 01/30/19 History Allergies Allergy/AdvReac Type Severity Reaction Status Date / Time adhesive AdvReac Mild Redness of Verified 01/30/19 11:32 Skin oxycodone AdvReac Unknown Hallucinati Verified 01/30/19 11:32 ons Past Med/Surg History Medical History Cardiac murmur Chronic back pain Diabetes mellitus, type 2 F/U PCP GERD (gastroesophageal reflux disease) History of hysterectomy [facility] BSO Hyperlipidemia Hypertension Hypothyroidism Non-Hodgkins lymphoma DX'D 20 YRS AGO-F/U PCP NOW Osteoarthritis Peripheral neuropathy BILAT LEGS SOB (shortness of breath) on exertion Surgical History History of appendectomy History of arthroscopy R/L History of dilatation and curettage History of tonsillectomy Slow to wake up after anesthesia AND PONV Status post breast reduction BILAT Family History Family/Other Family history of diabetes mellitus Social History Preferred Language: Bangladeshi Communication Ability: Effective Beliefs That Will Affect Care: None Current Living Situation: Alone Other Information That Helps Us Care for You: No Feels Safe at Home: Yes Safety Concerns: Feels Safe At This Time Smoking Status: Never smoker Second Hand Exposure: No Hx Alcohol Use: Yes Alcohol type: beer and wine Hx Substance Use: No Review of Systems See HPI for pertinent positives & negatives. and A total of 10 systems reviewed and were otherwise negative Physical Exam Vital Signs Vital Signs - 24 hr 01/30/19 09:54 01/30/19 11:06 01/30/19 11:12 Temperature 36.9 C Temperature Source Oral Sepsis Recent Fever Within 48 Hours No Sepsis New/Unexplained Change in Mental Status No Sepsis Action Taken by Nursing No Action Required Pulse Rate 68 Pulse Rate [Right Finger] 68 Pulse Rhythm Regular Pulse Strength Normal Respiratory Rate 20 20 Respiratory Effort / Characteristics Non-Labored Spontaneous Non-Labored Respiratory Depth Normal Normal Respiratory Pattern Regular Blood Pressure - Lying 190/85 H Blood Pressure - Sitting 161/86 H Blood Pressure- Standing 210/98 H Blood Pressure 196/94 H Blood Pressure [Right Arm] 210/98 H Blood Pressure Mean 128 Blood Pressure Mean [Right Arm] 135 Blood Pressure Position Sitting Pulse Oximetry 93 95 Oxygen Delivery Method Room Air Room Air 01/30/19 11:13 01/30/19 12:08 01/30/19 13:32 Temperature Temperature Source Sepsis Recent Fever Within 48 Hours Sepsis New/Unexplained Change in Mental Status Sepsis Action Taken by Nursing Pulse Rate 66 Pulse Rate [Right Finger] 68 62 Pulse Rhythm Pulse Strength Respiratory Rate 20 18 20 Respiratory Effort / Characteristics Non-Labored Respiratory Depth Normal Respiratory Pattern Blood Pressure - Lying Blood Pressure - Sitting Blood Pressure- Standing Blood Pressure Blood Pressure [Right Arm] 177/84 H 127/79 Blood Pressure Mean Blood Pressure Mean [Right Arm] 115 95 Blood Pressure Position Pulse Oximetry 93 92 98 Oxygen Delivery Method Room Air Room Air Room Air General: Non-ill appearing middle aged female in no acute distress. HEENT: Normal cephalic atraumatic. Pupils are equal round and reactive to light. Extraocular movements are intact. Oropharynx is pink with moist mucous membranes. No swelling of the mouth lips or tongue. Neck: Supple with a midline trachea. No meningeal signs or stiffness, no JVD or bruits. No Stridor. Chest: Clear to auscultation bilaterally. No wheezes or rhonchi. No increased work of breathing. Heart: regular rate and rhythm. Abdomen: Soft nontender, nondistended without rebound guarding or rigidity. Extremities: No cyanosis clubbing or edema. No calf tenderness or asymmetry Spine/Back. Non tender to palpation. No CVA tenderness Skin: Good turgor without rashes. Neurologic exam: Cranial nerves two through 12 are intact. Motor and sensation are intact and symmetrical throughout. Subjective numbness in left arm and leg. Course 1036: Past medical records reviewed. The patient was evaluated in room A9A. A complete history and physical examination was performed. 1329: I reviewed the patient's case with Dr. Ko. She will evaluate the patient for further management. Administered Medications Insulin Aspart (Novolog Flexpen) 0 units SC ACHS [facility] Stop: 03/01/19 16:29 Last Admin: 01/30/19 15:53 Dose: 4 units Documented by: [id number] Cosigned by: [id number] Discontinued Medications Aspirin (Aspirin) 324 mg PO NOW STA Stop: 01/30/19 13:06 Last Admin: 01/30/19 13:17 Dose: 324 mg Documented by: [id number] Medical Decision Making Differential Diagnosis Differential diagnosis includes: TIA, intracranial process, stroke, blood clot, infection, and cardiac disease. Medical Records Attestation: I reviewed the patient's medical records. Home Medications Current Medication List: was personally reviewed by me Laboratory Data Attestation: I reviewed the patient's lab results. Result diagrams: 01/30/19 10:34 01/30/19 10:34 Lab Results 01/30/19 01/30/19 01/30/19 Range/Units 10:34 10:34 10:34 WBC 5.31 (4.8-10.8) K/uL RBC 4.61 (4.2-5.4) M/uL Hgb 13.3 (12.0-16.0) g/dL Hct 38.6 (37-47) % MCV 83.7 (80-100) fL MCH 28.9 (25-34) pg MCHC 34.5 (32-36) g/dL RDW Std Deviation 43.2 (36.4-46.3) fL RDW Coeff of Jose 14.1 (11.5-14.5) % Plt Count 172 (130-400) K/uL MPV 10.8 H (7.4-10.4) fL Immature Gran % (Auto) 0.2 % Neut % (Auto) 47.6 % Lymph % (Auto) 34.7 % Preble % (Auto) 9.0 % Eos % (Auto) 7.9 % Baso % (Auto) 0.6 % Immature Gran # (Auto) 0.01 (0.00-0.02) K/uL Neut # (Auto) 2.53 (1.4-6.5) K/uL Lymph # (Auto) 1.84 (1.2-3.4) K/uL Preble # (Auto) 0.48 (0.11-0.59) K/uL Eos # (Auto) 0.42 (0-0.5) K/uL Baso # (Auto) 0.03 (0-0.2) K/uL PT 10.0 (9.0-12.0) Seconds INR 1.0 (0.9-1.1) APTT 25.8 (21.0-31.0) Seconds PTT Ratio 1.0 Sodium 139 (136-145) mmol/L Potassium 4.0 (3.5-5.1) mmol/L Chloride 105 (98-107) mmol/L Carbon Dioxide 26 (21-32) mmol/L Anion Gap 8.0 (3-11) BUN 21 H (7-18) mg/dl Creatinine 1.14 (0.6-1.2) mg/dl Est Cr Clr Drug Dosing 51.0 ml/min Est GFR ( Amer) 54.5 Est GFR (Non-Af Amer) 47.0 BUN/Creatinine Ratio 18.2 (10-20) Glucose 238 H (70-99) mg/dl Calcium 9.2 (8.5-10.1) mg/dl Total Bilirubin 0.3 (0.2-1) mg/dl AST 19 (15-37) U/L ALT 31 (12-78) U/L Alkaline Phosphatase 87 (45-117) U/L Total Protein 6.9 (6.4-8.2) gm/dl Albumin 3.5 (3.4-5.0) gm/dl Globulin 3.4 (2.5-4.0) gm/dl Albumin/Globulin Ratio 1.0 (0.9-2) Imaging Data Radiologist's Impression: Radiology results as stated below per my review and th e radiologist's interpretation: XR chest 1V portable CLINICAL HISTORY: cough dyspnea COMPARISON STUDY: No previous studies for comparison. FINDINGS: Mild cardiomegaly. Diaphragms smooth. Lungs are clear. IMPRESSION: Mild cardiomegaly. Otherwise negative study. The above report was generated using voice recognition software. It may contain grammatical, syntax or spelling errors. Electronically signed by: Ian Jean Baptiste M.D. 01/30/2019 11:16 AM ECG Data Attestation: I personally reviewed and interpreted this ECG as follows: Indication: other (numbness) Rate (beats per minute): 67 Rhythm: normal sinus Findings: no acute ischemic change and no ectopy Comparison ECG Date: no prior available Blood Pressure Blood Pressure Findings: Elevated blood pressure Blood Pressure Disposition: further management by hospitalist [facility] Narrative This patient comes in as described above. She was placed in room 89. She is here for treatment and evaluation of left-sided numbness. It started last evening around 4 PM 30 p.m. It persisted is not any worse today. she said she had difficult time walking because her left leg felt weak there may have been some pain as well. She has no headache. She did take a baby aspirin this morning. She is on any blood thinners. No history of similar. No chest pain o r shortness of breath. On her neuro exam, she has some decreased sensation/numbness to light touch in the left arm and leg. IV access established, blood work was obtained, EKG does not suggest acute coronary syndrome or arrhythmia. Her CAT scan shows some lacunar infarcts on the right which are thought to be old however given her symptoms. I am concerned that these could be new or there could be another one that is not yet visible on the CT I do think she likely had a stroke yesterday, she is certainly outside the window for TPA or intervention at this point but will need further neurologic work-up. She was given a full-strength 324 mg aspirin here and I consulted the [facility] for admission/observation. Impression & Plan Stroke, Left sided numbness Discharge Plan Visit Data *Final* Discharge Date/Time: 01/30/19 14:21 Chief Complaint: Neuro Symptoms/Deficit Stated Complaint: hypertension, left side numbness ED Provider: Shabbir Jaime Discharge Problem: Stroke, Left sided numbness Patient Disposition: Admitted As Inpatient Discharge Instructions Interventions: ED Discharge Assessment Last Done: 01/30/19 14:21 The scribe's documentation has been prepared under my direction and personally reviewed by me in its entirety. I confirm that the note above accurately re flects all work, treatment, procedures, and medical decision making performed by me.
[2019-01-30] MEDS ORDERED: LABETALOL HCL IV 5 MG/ML 20ML IV PRN (16:50)
[2019-01-30] MEDS: PANTOprazole 40 MG TAB PO SCH (19:35)
[2019-01-30] MEDS: ACETAMINOPHEN 325 MG TAB PO PRN (19:35)
--- NOTE | 2019-01-30 21:59 | Magnetic Resonance Report ---
MR angio head wo con HISTORY: 73 years-old Female ?CVA acute strokelike symptoms with left-sided numbness and headache COMPARISON: CT head of same day TECHNIQUE: MRA of the head was obtained utilizing 3-D [id number] sequencing with MIP reformats. A ll measurements were obtained according to NASCET criteria. FINDINGS: Event Promotions Coordinator localizer images demonstrate no gross abnormality. The imaged bilateral internal carotid arteri es appear widely patent. The study is motion degraded. The middle and anterior cerebral arteries appear widely patent. Multifocal areas of apparent luminal narrowing about the bilateral middle cerebral arteries, notably at the level of the right mid to dist al M1 segment. Diminutive right A1 segment, likely developmental. Dominant left vertebral artery. The right vertebral artery appears to terminate into the right high. Approximately 50% luminal narrowing about the mid basilar artery, likely secondary to underlying atrophy chronic vascular disease. Focal area of high-grade stenosis about the right P1 segment. Approximately 50% stenosis involves the mid left P1 segment. IMPRESSION: 1. Motion degraded exam. 2. Apparent luminal narrowing about the mid to distal right M1 segment may be artifactual or secondar y to underlying atherosclerotic vascular disease. Findings could be correlated with CTA if of further clinical concern. 3. Multifocal luminal narrowing about the posterior circulation as above. 4. No aneurysm identified. The above report was generated using voice recognition software. It may contain grammatical, syntax o r spelling errors. Electronically signed by: Mor Tam M.D. 01/30/2019 9:58 PM
[2019-01-30] MEDS ORDERED: GADOBUTROL 65ML VIAL IV PRN (22:21)
[2019-01-30] MEDS: INSULIN GLARGINE SOLOSTAR 100 UNITS/ML 3 ML PEN SC SCH (22:38)
--- NOTE | 2019-01-30 22:49 | Magnetic Resonance Report ---
MR brain wo/w con HISTORY: 73 years-old Female ?CVA acute strokelike symptoms. COMPARISON: MRA of the head and neck of same day TECHNIQUE: Multiplanar multisequence MRI of the brain was obtained both with and without the use of 1 0 mL Gadavist FINDINGS: Fur Tanner localizer images demonstrate no gross abnormality. 9 mm focus of resected diffusion about the c aamir radiata of the left frontal lobe, image 14 series 4 is noted in addition to a 9 mm focus of res tricted diffusion about the right thalamus, image 12 series 4. No acute or subacute territorial infar ction. Midline structures including the corpus callosum, brainstem, optic chiasm, pituitary and pinea l glands appear unremarkable on the sagittal T1 series. No cerebellar tonsillar herniation. Degenerat carol changes are noted about the imaged cervical spine. Age-related involutional changes. Moderate scattered T2/FLAIR hyperintensities about the white matter suggest chronic microvascular ischemic disease. Study is mildly motion degraded. No acute intracrani al hemorrhage, midline shift, abnormal extra-axial collections, hydrocephalus or intra-axial mass. In determinate 7 x 4 x 5 mm focus of enhancement is noted about the left caudate head, image 12 series 1 7 image 12 series 18 with normal signal on the T2, T1 and FLAIR series. No additional abnormal enhanc ement. Major flow voids appear patent. Small bilateral mastoid effusions. Mild mucosal thickening of the eth moid air cells. Skull, soft tissues and orbits are unremarkable. IMPRESSION: 1. Acute subcentimeter infarction of the parmar radiata left frontal lobe with additional subcentimet er infarction noted about the right thalamus. 2. No acute or subacute territorial infarct, intracranial hemorrhage or midline shift. 3. Indeterminate subcentimeter focus of enhancement about the left caudate head. 3-6 month follow-up contrast-enhanced MRI of the brain recommended to further evaluate. 4. Age-related involutional changes with moderate chronic microvascular ischemic disease. The above report was generated using voice recognition software. It may contain grammatical, syntax o r spelling errors. Electronically signed by: Mor Tam M.D. 01/30/2019 10:48 PM
--- NOTE | 2019-01-30 23:06 | Magnetic Resonance Report ---
MR angio neck wo/w con HISTORY: 73 years-old Female ?CVA acute strokelike symptoms COMPARISON: MRA of the head and MRI brain of same day TECHNIQUE: MRA of the neck was obtained both with and without the use of 10 ml Gadavist. All measurem ents were obtained according to NASCET criteria. FINDINGS: Label Sewer localizer images demonstrate no gross abnormality. The heart appears enlarged. Study is motion degraded. Three-vessel morphology of the aortic arch. Bilateral common carotid arteries appear widely patent. The bilateral internal carotid arteries appear widely patent. Dominant left vertebral artery. The right vertebral artery appears to terminate within the right PICA . No aneurysm, dissection, high-grade stenosis or proximal branch occlusion identified. IMPRESSION: Unremarkable MRA of the neck without aneurysm, dissection, high-grade stenosis or proximal branch occ lusion. The above report was generated using voice recognition software. It may contain grammatical, syntax o r spelling errors. Electronically signed by: Mor Tam M.D. 01/30/2019 11:05 PM
[2019-01-31] MEDS: ACETAMINOPHEN 325 MG TAB PO PRN ×2 (00:41→08:22)
[2019-01-31 05:44] LABS: Basophils # (auto) 0.03 K/uL (0-0.2); Basophils % (auto) 0.5 %; Eosinophils # (auto) 0.54 K/uL (0-0.5); Eosinophils % (auto) 8.8 %; Hematocrit (blood only) 40.2 % (37-47); Hemoglobin 13.7 g/dL (12.0-16.0); Immature Granulocytes # (auto) 0.01 K/uL (0.00-0.02); Immature Granulocytes % (auto) 0.2 %; Lymphocytes # (auto) 2.33 K/uL (1.2-3.4); Lymphocytes % (auto) 37.9 %; Mean Corpuscular Hgb Conc 34.1 g/dL (32-36); Mean Corpuscular Volume 83.9 fL (80-100); Mean Platelet Volume 10.5 fL (7.4-10.4); Monocytes # (auto) 0.73 K/uL (0.11-0.59); Monocytes % (auto) 11.9 %; Neutrophils # (auto) 2.51 K/uL (1.4-6.5); Neutrophils % (auto) 40.7 %; Platelet Count 181 K/uL (130-400); RDW Coefficient of Variation 13.9 % (11.5-14.5); RDW Standard Deviation 42.6 fL (36.4-46.3); Red Blood Count 4.79 M/uL (4.2-5.4); White Blood Count 6.15 K/uL (4.8-10.8)
[2019-01-31 06:13] LABS: BUN Creatinine Ratio 14.8 (10-20); Calcium 8.9 mg/dl (8.5-10.1); Creatinine Clr Calc Pharmacy 50.1 ml/min; Est GFR (African American) 53.3; Potassium 3.7 mmol/L (3.5-5.1)
[2019-01-31 06:29] LABS: Estimated Average Glucose 214 mg/dl; Hemoglobin A1C 9.1 % (4.5-5.6)
[2019-01-31] MEDS ORDERED: LEVOTHYROXINE SODIUM 75 MCG TABLET PO SCH (06:30)
[2019-01-31 06:36] LABS: T4 Free Thyroxine 0.89 ng/dl (0.8-1.6)
[2019-01-31] MEDS: ATORVASTATIN 40 MG TAB PO SCH (08:13)
[2019-01-31] MEDS: PANTOprazole 40 MG TAB PO SCH ×2 (08:13→21:10)
[2019-01-31] MEDS: INSULIN ASPART 100 UNITS/ML 3 ML PEN SC SCH ×4 (08:15→21:13)
[2019-01-31] MEDS: INSULIN GLARGINE SOLOSTAR 100 UNITS/ML 3 ML PEN SC SCH ×2 (08:16→21:11)
[2019-01-31] MEDS ORDERED: CLOPIDOGREL BISULFATE 75 MG TAB PO SCH (09:00)
[2019-01-31] MEDS ORDERED: PERFLUTREN LIPID MICROSPHERE (DEFINITY) IV ONE (09:28)
--- NOTE | 2019-01-31 09:59 | Neurology Consultation ---
Date of Consultation January 31, 2019 Assessment & Plan (1) Stroke: This patient appears to have 2 acute ischemic strokes, one within the right thalamus/posterior limb of the internal capsule, and the other within the left parmar radiata/frontal lobe. She presented with a mild to moderate left- sided motor or sensory disturbance which would localize to the right thalamic infarct. The left frontal infarct seems to be asymptomatic. Diabetes, hypertension, and dyslipidemia are notable risk factors for this patient. Cardioembolism may not be completely excluded, however, given the presence of acute bilateral infarcts. Her MRI also revealed a nonspecific, incidental, small area of enhancement at the left caudate head. A follow-up contrast- enhanced MRI in 3 to 6 months is reasonable as suggested by radiology. I would recommend a CT angiogram of the head and neck. Would recommend an up-to-date echocardiogram. Further, given the possibility of cardioembolism would also consider a 30-day event monitor. Patient follows with Dr. Aleman, cardiology. Agree with switching from daily low-dose aspirin to Plavix 75 mg/day. Agree with atorvastatin as ordered. Continue with blood pressure management, avoid aggressive blood pressure reduction. Systolic blood pressure 140 to 160 mmHg appropriate for now. Consultations with speech and swallowing, PT/OT. History of Present Illness Reason for Consultation: stroke Requesting Physician: Gisel Ko DO Attending Physician: Tracey Vincent MD History of Present Illness The patient is a 73-year-old female with a chief complaint of persistent numbness and heaviness affecting the left arm and leg that began acutely Wednesday while driving her car home. She recalls having some mild difficulty walking into her house at that time as her left leg felt a bit heavy. She does not recall experiencing any facial numbness or weakness but does admit to some subtle difficulty with swallowing which seems to be new. She also complains of a mild associated frontal headache. The patient does report that her left-sided numbness and weakness seems modestly improved today. She denies any change in vision or speech. Past medical history notable for hypertension and diabetes mellitus. Allergies Allergy/AdvReac Type Severity Reaction Status Date / Time adhesive AdvReac Mild Redness of Verified 01/30/19 11:32 Skin oxycodone AdvReac Unknown Hallucinati Verified 01/30/19 11:32 ons Home Medications Home Medications Medication Instructions Recorded Confirmed Type Lantus U-100 Insulin 50 unit SUBCUT QPM 05/18/18 01/30/19 History Novolog U-100 Insulin aspart 12 unit SUBCUT TID 05/18/18 01/30/19 History albuterol sulfate 2 puff INHALATION Q6H PRN 05/18/18 01/30/19 History aspirin [Aspir-81] 81 mg PO QAM 05/18/18 01/30/19 History metformin 500 mg PO QPM 05/18/18 01/30/19 History omeprazole 20 mg PO BID 05/18/18 01/30/19 History carvedilol 3.125 mg PO BID 01/30/19 01/30/19 History carvedilol 6.25 mg PO BID 01/30/19 01/30/19 History levothyroxine 75 mcg PO DAILY 01/30/19 01/30/19 History valsartan-hydrochlorothiazide 1 tab PO QAM 01/30/19 01/30/19 History Patient History Medical History Cardiac murmur Chronic back pain Diabetes mellitus, type 2 F/U PCP GERD (gastroesophageal reflux disease) History of hysterectomy [facility] BSO Hyperlipidemia Hypertension Hypothyroidism Non-Hodgkins lymphoma DX'D 20 YRS AGO-F/U PCP NOW Osteoarthritis Peripheral neuropathy BILAT LEGS SOB (shortness of breath) on exertion Surgical History History of appendectomy History of arthroscopy R/L History of dilatation and curettage History of tonsillectomy Slow to wake up after anesthesia AND PONV Status post breast reduction BILAT Family History Family/Other Family history of diabetes mellitus Social History Preferred Language: Cambodian Communication Ability: Effective Beliefs That Will Affect Care: None Current Living Situation: Alone Other Information That Helps Us Care for You: No Feels Safe at Home: Yes Safety Concerns: Feels Safe At This Time Smoking Status: Never smoker Second Hand Exposure: No Hx Alcohol Use: Yes Alcohol type: beer and wine Hx Substance Use: No Review of Systems Constitutional: no fever and no chills Eyes: no blind spots and no diplopia Ear, Nose, Mouth, Throat: no tinnitus and no hearing loss Respiratory: no cough and no dyspnea Cardiovascular: no chest pain and no palpitations Gastrointestinal: no abdominal pain and no nausea Genitourinary: no urinary incontinence Musculoskeletal: no myalgia Integumentary: no rash and no lesions Neurologic: as per Subjective / HPI Psychiatric: no depression and no anxiety Hematologic / Lymphatic: no easy bleeding and no lymphadenopathy Physical Exam Physical Exam: The patient is a well-developed elderly female lying comfortably in bed in no acute distress. She is alert and fully oriented. Recent and remote memory intact. Patient exhibits normal attention and concentration as well as a normal spontaneous speech pattern. Patient has an age-appropriate fund of knowledge and normal vocabulary. Visual jett full to confrontation. Visual acuity normal. Pupils equal round reactive to light and accommodation. Eye movements normal. Facial sensation intact. There is no facial droop or weakness. Hearing intact. Palate elevates to midline. Shoulder shrug intact. Tongue protrudes to midline. Sensory examination reveals a relative hemisensory deficit to vibration, temperature, and light touch affecting the left arm and leg. Deep tendon reflexes are diminished for the arms and legs bilaterally. Plantar responses equivocal bilaterally. There is dysmetria with [id number] and lymi-tl-[id number] on the left. No dysmetria [id number]-[id number] or [id number]-[id number]-[id number] on the right. Ophthalmoscopic examination reveals normal-appearing optic disks and posterior segments. No papilledema or hemorrhages. Carotid pulses normal bilaterally, no bruits to auscultation. Gait and station not tested due to safety concerns. Muscle strength testing reveals very subtle weakness for the left arm and leg, primarily slow movement initiation. Patient also fixes on the left with arm roll and has some impairment of fine finger movements on the left as well. Muscle tone normal throughout. No atrophy. No abnormal movements observed. Results & Data Vital Signs (Past 12 Hours) Vital Signs Temp Pulse Pulse Resp BP Pulse Ox 01/31/19 07:16 59 L 01/31/19 07:10 36.6 C 63 18 154/61 H 90 01/31/19 04:20 36.7 C 72 18 127/62 90 01/30/19 23:13 36.6 C 76 20 128/74 92 01/30/19 22:32 72 Laboratory Results This morning's labs reviewed. WBC 6.15, hemoglobin 13.7, hematocrit 40.2, platelet count 181, sodium 139, potassium 3.7, BUN 17, creatinine 1.16, glucose 155, calcium 8.9, triglycerides 323, cholesterol 228, LDL 127, HDL 36, TSH 10.500, hemoglobin A1c yesterday was 9.[address] of the head completed January 30, 2019 revealed lacunar infarcts within the body of the right caudate and right thalamus, possibly old. No hemorrhage. Images and report reviewed. MRI of the brain completed January 30, 2019 revealed an acute subcentimeter infarct within the left parmar radiata of the frontal lobe with an additional subcentimeter infarct within the right thalamus, encroaching on the posterior limb of the internal capsule. Also noted is an indeterminate small focus of enhancement at the left caudate head. A follow-up MRI in 3 to 6 months is suggested. Study also reveals age-related involutional change with moderate chronic microvascular ischemic disease. I reviewed both the images and radiologist interpretation of this test and agree. MR angiography of the head was motion degraded but suggested some luminal narrowing at the mid to distal right M1 segment due to atherosclerotic disease. A follow-up CT angiogram was suggested, however. Atherosclerotic change of the posterior circulation also noted. MR angiography of the neck was unremarkable. No evidence of significant vascular lesion. Electrocardiogram completed yesterday revealed a normal sinus rhythm, with a left bundle branch block, 67 bpm. An outpatient echocardiogram completed January 16, 2019 revealed a left ventricular ejection fraction of 50% with severe asymmetric hypertrophy of the inferoseptum and anteroseptal consistent with hypertrophic cardiomyopathy. Abnormal septal motion consistent with intraventricular conduction delay. Hypertrophied papillary muscles observed. Grade 1 diastolic dysfunction of the left ventricle also noted. (1) Stroke CVA mechanism: unspecified Qualified Code(s): I63.9 - Cerebral infarction, unspecified
--- NOTE | 2019-01-31 18:07 | Ultrasound Report ---
US venous doppler LE CLINICAL HISTORY: 73 years-old Female presenting with r/o DVT,leg swelling, acute CVA with PFO. TECHNIQUE: Real-time grayscale and color and spectral Doppler ultrasound imaging of the veins of the bilateral lower extremities was performed. Compression and augmentation were also utilized. COMPARISON: None. FINDINGS: RIGHT: Common femoral vein: Patent. Greater saphenous vein (superficial): Patent. Deep femoral vein: Patent. Femoral vein: Patent. Popliteal vein: Patent. Calf veins: Patent. LEFT: Common femoral vein: Patent. Greater saphenous vein (superficial): Patent. Deep femoral vein: Patent. Femoral vein: Patent. Popliteal vein: Patent. Calf veins: Filling defect consistent with thrombus in one of two duplicated posterior tibial veins. The remainder of the calf veins are patent. Other: None. IMPRESSION: 1. Acute deep venous thrombosis in one of two duplicated left posterior tibial veins. Remainder of t he veins of the left lower extremity patent. 2. No deep venous thrombosis in the right lower extremity. The report will be called/faxed according to standard departmental protocol. Electronically signed by: Bill Galvan M.D. 01/31/2019 6:06 PM
[2019-01-31] MEDS ORDERED: OPTIRAY 320 125ml IV PRN (18:13)
--- NOTE | 2019-01-31 18:26 | CT Scan Report ---
CT angio head w con CLINICAL HISTORY: 73 years-old Female presenting with acute CVA,narrowing M1 segment right on MRA. TECHNIQUE: Multidetector CT angiography of the head was performed after the administration of intrave nous contrast. 3-D volumetric and/or maximum intensity projection (MIP) images were subsequently dulce nstructed for review. IV contrast: Optiray 320. One or more dose lowering techniques were used consis tent with the principles of ALARA (as low as reasonably achievable), including automatic exposure con trol, mA or kV adjustment to individual patient size, and/or use of iterative reconstruction. COMPARISON: Noncontrast CT head performed the previous day as well as contrast enhanced MR brain perf ormed the previous day. MRA performed on 01/30/2019. CT DOSE (mGy.cm): The estimated cumulative dose is 507.36. FINDINGS: Internal Review And Audit Compliance topogram: Anterior cervical fusion hardware. Anterior circulation: Atherosclerosis of the cavernous segments of the internal carotid arteries. Int racranial portions of the internal carotid arteries patent to the level of the termini. Anterior cere bral arteries patent. Hypoplastic A1 segment of the right anterior cerebral artery. Middle cerebral a rteries patent. The region of clinical concern in the distal right M1 segment proximal to the bifurca tion is widely patent. Additionally, irregularity of the left M1 segment is also widely patent. Anter ior communicating artery patent. Posterior circulation: Left dominant vertebral artery. Intradural portions of the vertebral arteries patent. Posterior inferior cerebellar arteries patent. Significant irregularity of the basilar artery , which confirms the finding on MRA, likely reflecting underlying atherosclerotic disease. Anterior i nferior cerebellar arteries poorly visualized. Superior cerebellar arteries patent. Posterior cerebra l arteries (STRETCH BOX TENDER) patent, although focal severe stenosis is evident in the distal P1 or proximal P2 se gment of the right posterior cerebral artery. Stenosis is also observed in the P2 segment of the left STRETCH BOX TENDER. Left posterior communicating artery (P-comm) patent. Right P-comm hypoplastic or aplastic Dural venous sinuses: Patent. Other: Allowing for the phase of contrast, brain parenchyma within normal limits. Calvarium intact. IMPRESSION: 1. Significant luminal irregularity with multifocal stenoses in the basilar artery confirming the fi nding on MRA, presumably atherosclerotic. 2. Severe stenosis in the distal and one proximal P2 segment of the right STRETCH BOX TENDER, presumably atheroscle rotic. 3. Stenosis of the P2 segment of the left STRETCH BOX TENDER, presumably atherosclerotic. 4. The additional findings on MRI suggesting abnormalities of the bilateral M1 segments of the middl e cerebral arteries are not confirmed on the CTA. These were therefore artifactual. 5. No focal vessel occlusion or aneurysm. Center port Electronically signed by: Bill Galvan M.D. 01/31/2019 6:24 PM
--- NOTE | 2019-01-31 18:31 | CT Scan Report ---
CT angio neck with con CLINICAL HISTORY: 73 years-old Female presenting with acute CVA. TECHNIQUE: Multidetector CT angiography of the neck was performed after the administration of intrave nous contrast. 3-D volumetric and/or maximum intensity projection (MIP) images were subsequently dulce nstructed for review. IV contrast: 121 mL of Optiray 320. One or more dose lowering techniques were u sed consistent with the principles of ALARA (as low as reasonably achievable), including automatic ex posure control, mA or kV adjustment to individual patient size, and/or use of iterative reconstructio n. Stenosis measurements were based on NASCET-like criteria (distal lumen diameter as the denominator for stenosis measurement). COMPARISON: MRA neck from the previous day. CT DOSE (mGy.cm): The estimated cumulative dose is 507.36 mGy.cm. FINDINGS: Dry Pan Feeder topogram: Unremarkable. Aortic arch: Significant calcified and noncalcified atherosclerotic plaque resulting in luminal irreg ularity of the thoracic aorta predominantly in the distal arch and proximal descending portion. Origi ns of the branch vessels including the common origin of the innominate and left common carotid artery are patent. Innominate artery: Atherosclerotic irregularity but no significant stenosis. Right subclavian artery: Patent. Right common carotid artery: Severe atherosclerotic irregularity and tortuosity of the proximal right common carotid artery. Stenosis is greatest in this portion with a minimum diameter of 3.5 mm in com parison to a normal distal diameter of 7 mm (50% stenosis). Right internal and external carotid arteries: Calcified and noncalcified atherosclerotic plaque in th e carotid bifurcation without significant stenosis of the origins of the right internal or external c arotid arteries. Remaining courses of the right ICA and ECA also widely patent. Left common carotid artery: Noncalcified atherosclerotic plaque results in significant luminal irregu larity of the proximal to mid left common carotid artery with a minimum diameter of 5 mm in compariso n to the normal distal diameter of 6.5 mm (less than 25% stenosis. Left internal and external carotid arteries: Calcified and noncalcified atherosclerotic plaque at the carotid bifurcation with patent origins of the left internal and coronal carotid arteries. Remaining courses of the left ICA and ECA widely patent. Left subclavian artery: Significant luminal irregularity arising from noncalcified atherosclerotic pl aque in the proximal course. Vertebral arteries: Left dominant vertebral artery. Only trace atherosclerotic plaque burden is evide nt beyond the proximal courses of the bilateral vertebral arteries, which remain widely patent. Other: Soft tissues of the neck normal allowing for the phase of contrast. Degenerative changes of th e cervical spine. Anterior cervical fusion hardware. Lung apices clear. IMPRESSION: 1. Significant atherosclerosis though the maximum site of stenosis, which is located in the proximal right common carotid artery, is not greater than 50%. Sites of atherosclerotic plaque are detailed a carlos. No hemodynamically significant stenosis. No focal vessel occlusion. Electronically signed by: Bill Galvan M.D. 01/31/2019 6:30 PM
[2019-01-31] MEDS ORDERED: APIXABAN 5 MG TABLET PO SCH (19:05)
--- NOTE | 2019-01-31 19:10 | Hospitalist Progress Note ---
Date of Service January 31, 2019 Assessment & Plan (1) Stroke: Patient with new left sided deficit. Has history of HTN, HLP, DM and suspected old CVA per CT read. 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, concern for paradoxical emoblus given DVT and PFO on ECHO MRA head and neck with stenoses--> CTA head and neck show 50% stenosis of the proximal right common carotid artery as well as significant basilar artery atherosclerosis as well as bilateral BEHAVIORAL HEALTH TECH stenoses but no occlusions or aneurysms -continue ASA 81 and starting Eliquis for DVT and paradoxical emboli -consult Cardio to see if SYLVIE needs to be done vs closure of PFO? Probably will just have her take Eliquis for life -Started Lipitor 40mg po daily-watch for myalgias as has had previously, could add Co Q10 if needed -continue to hold Carvedilol and Valsartan/HCTZ to allow for permissive hypertension -Labetalol IV PRN SBP > 200mmHg -Neurology consultation -appreciate assistance with this case -Continue telemetry monitoring for atrial fibrillation and recommend cardiac event monitor after discharge likely for 1 month if no atrial fibrillation found on this admission (2) Acute DVT of left tibial vein: Does have a h/o high risk colon polyps but had last colonoscopy in the fall and due for another one in afew months-on an annual screening program -is UTD on mammogram Not sedentary, no recent surgery or long trips, no personal or family history of VTE Unprovoked DVT Discussed options for anticoagulation with the patient as well as her daughter at the bedside and risk and benefits. She has no history of significant bleeding in the past and is agreeable to starting anticoagulation. -start Eliquis 10mg po bid x 7 days and then 5mg po bid -Check CTA chest for PE given sharp pains under bilat ribs going on for 3-4 weeks -needs updated mammo -checking CT C/A/P to look for cause of chest pains, upper abd pains, not feeling well for 1-2 months overall, r/o malignancy (3) Chest pain: Located under the bilateral ribs and upper abdomen for 1 month -Checking CTA chest for PE-ok for routine timing of this especially given heavy dye load with CT angiograms of the head and neck today-we will plan for CTs tomorrow -Anticoagulating her as above for DVT and she is hemodynamically stable (4) Hypertension: Blood pressures in acceptable range -Hold Carvedilol and Diovan for now to allow for permissive hypertension -Labetalol IV PRN -Continue to monitor (5) Diabetes: Patient with DM with peripheral neuropathy. HgAIC here is uncontrolled at 9.1%, with hyperglycemia here -Continue Lantus 25u BID -Tighten down correction factor and carb ratio ADA diet -Holding home metformin (6) Dyslipidemia: Chronic Lipids are quite elevated with total cholesterol 228, LDL 127, triglycerides in the 300s -Atorvastatin 40mg po daily was added (7) GERD (gastroesophageal reflux disease): Chronic. Stable -Continue Protonix daily (8) Hypothyroid: Chronic. -TSH elevated at 10.5 -increase LT4 to 88mcg and repeat TFTs in 4-6 weeks (9) Abnormal brain MRI: indeterminate lesion left caudate head-with h/o high risk polyps of colon, h/o NHL, question if could be met? -repeat brain MRI in 3 months -has repeat colonoscopy coming up soon, is due for annual mammogram (10) PFO (patent foramen ovale): As seen on echocardiogram as above Cardiology consulted as above (11) History of non-Hodgkin's lymphoma: Noted in history, in remission for many years (12) DVT prophylaxis: Now starting Eliquis as above for acute DVT Disposition-remain on telemetry PT/OT consults placed-PT recommending home with home health, OT recommending rehab Subjective Saw the patient on 2 occasions today. The first time was in the early afternoon. She reports feeling stronger in the left side and less numb. Her daughter was present and reported that the patient has had significant swelling and pain in the left leg and calf that is worse with having her feet below her when sitting in a chair for the last week. Patient also reports she has been having pains under her bilateral ribs and upper abdomen left greater than right also for several weeks. Her PCP presumably thought she had pneumonia and treated her for such with antibiotics several weeks ago. She has had a mildly productive cough also for several weeks but denies shortness of breath. I reviewed the findings of her MRI and echocardiogram with her. Later in the evening, I came back to discuss the results of the Doppler of her lower extremities and confirmed that she had a left posterior tibial DVT. She reports she is up-to-date on her mammogram is due for one soon but had one less than a year ago. She has yearly colonoscopies for high risk polyps and it has not been quite a year since her last one. Telemetry with normal sinus rhythm with rates in the 60s to 70s, no tachyarrhythmias. 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 Review of Systems Review of Systems: All systems reviewed & are unremarkable except as noted in HPI & below Physical Exam Constitutional: WD/WN, vitals as above + obese Eyes: PERRL, conjunctivae normal, anicteric sclerae EOM intact bilaterally ENMT: external ear and nose normal, oropharynx normal Ears: no hearing impairment Neck: trachea midline, no thyromegaly Thyroid: no thyroid mass and thyroid nontender Respiratory: normal respiratory effort, lungs clear to auscultation Cardiovascular: Rate/Rhythm: regular rate and regular rhythm Heart Sounds: no murmur Extremities: + calf tenderness (On the left) and + edema (Left leg with trace to 1+ pitting edema, right leg no edema) Gastrointestinal (Abdomen): normal bowel sounds, soft, nontender, no hepatosplenomegaly Musculoskeletal: Extremities: no cyanosis and no clubbing Skin: no rashes, warm and dry Neurologic: CN's II-XI intact bilaterally, deep tendon reflexes 2+ bilaterally, + focal motor deficit (4+ out of 5 strength in the proximal muscles of the left upper and lower extremities, otherwise 5 out of 5 strength throughout) and awake Motor/Sensory: no tremor Sensation decreased to light touch throughout most of the left upper and lower extremities Psychiatric: A+Ox3, euthymic affect Results & Data Vital Signs (Past 12 Hours) Vital Signs Temp Pulse Pulse Resp BP Pulse Ox 01/31/19 15:35 36.4 C L 67 20 136/58 L 90 01/31/19 12:22 36.6 C 81 19 116/72 91 01/31/19 07:16 59 L 01/31/19 07:10 36.6 C 63 18 154/61 H 90 Laboratory Results 01/31/19 01/31/19 01/31/19 Range/Units 20:42 16:30 11:38 WBC (4.8-10.8) K/uL RBC (4.2-5.4) M/uL Hgb (12.0-16.0) g/dL Hct (37-47) % MCV (80-100) fL MCH (25-34) pg MCHC (32-36) g/dL RDW Std Deviation (36.4-46.3) fL RDW Coeff of Jose (11.5-14.5) % Plt Count (130-400) K/uL MPV (7.4-10.4) fL Immature Gran % (Auto) % Neut % (Auto) % Lymph % (Auto) % [place] % (Auto) % Eos % (Auto) % Baso % (Auto) % Immature Gran # (Auto) (0.00-0.02) K/uL Neut # (Auto) (1.4-6.5) K/uL Lymph # (Auto) (1.2-3.4) K/uL [place] # (Auto) (0.11-0.59) K/uL Eos # (Auto) (0-0.5) K/uL Baso # (Auto) (0-0.2) K/uL Sodium (136-145) mmol/L Potassium (3.5-5.1) mmol/L Chloride (98-107) mmol/L Carbon Dioxide (21-32) mmol/L Anion Gap (3-11) BUN (7-18) mg/dl Creatinine (0.6-1.2) mg/dl Est Cr Clr Drug Dosing ml/min Est GFR ( Amer) Est GFR (Non-Af Amer) BUN/Creatinine Ratio (10-20) Glucose (70-99) mg/dl POC Glucose 190 H 181 H 221 H (70-99) Estimat Average Glucose mg/dl Hemoglobin A1c (4.5-5.6) % Calcium (8.5-10.1) mg/dl Triglycerides (0-150) mg/dl Cholesterol (0-200) mg/dl LDL Cholesterol, Calc mg/dl VLDL Cholesterol, Calc mg/dl HDL Cholesterol mg/dl Cholesterol/HDL Ratio TSH (0.300-4.500) uIu/ml Free T4 (0.8-1.6) ng/dl 01/31/19 01/31/19 01/31/19 Range/Units 10:20 07:20 05:30 WBC (4.8-10.8) K/uL RBC (4.2-5.4) M/uL Hgb (12.0-16.0) g/dL Hct (37-47) % MCV (80-100) fL MCH (25-34) pg MCHC (32-36) g/dL RDW Std Deviation (36.4-46.3) fL RDW Coeff of Jose (11.5-14.5) % Plt Count (130-400) K/uL MPV (7.4-10.4) fL Immature Gran % (Auto) % Neut % (Auto) % Lymph % (Auto) % [place] % (Auto) % Eos % (Auto) % Baso % (Auto) % Immature Gran # (Auto) (0.00-0.02) K/uL Neut # (Auto) (1.4-6.5) K/uL Lymph # (Auto) (1.2-3.4) K/uL [place] # (Auto) (0.11-0.59) K/uL Eos # (Auto) (0-0.5) K/uL Baso # (Auto) (0-0.2) K/uL Sodium 139 (136-145) mmol/L Potassium 3.7 (3.5-5.1) mmol/L Chloride 104 (98-107) mmol/L Carbon Dioxide 29 (21-32) mmol/L Anion Gap 6.0 (3-11) BUN 17 (7-18) mg/dl Creatinine 1.16 (0.6-1.2) mg/dl Est Cr Clr Drug Dosing 50.1 ml/min Est GFR ( Amer) 53.3 Est GFR (Non-Af Amer) 46.0 BUN/Creatinine Ratio 14.8 (10-20) Glucose 155 H (70-99) mg/dl POC Glucose 230 H 179 H (70-99) Estimat Average Glucose mg/dl Hemoglobin A1c (4.5-5.6) % Calcium 8.9 (8.5-10.1) mg/dl Triglycerides 323 H (0-150) mg/dl Cholesterol 228 H (0-200) mg/dl LDL Cholesterol, Calc 127 mg/dl VLDL Cholesterol, Calc 65 mg/dl HDL Cholesterol 36 mg/dl Cholesterol/HDL Ratio 6 TSH 10.500 H (0.300-4.500) uIu/ml Free T4 0.89 (0.8-1.6) ng/dl 01/31/19 01/30/19 Range/Units 05:30 15:13 WBC 6.15 (4.8-10.8) K/uL RBC 4.79 (4.2-5.4) M/uL Hgb 13.7 (12.0-16.0) g/dL Hct 40.2 (37-47) % MCV 83.9 (80-100) fL MCH 28.6 (25-34) pg MCHC 34.1 (32-36) g/dL RDW Std Deviation 42.6 (36.4-46.3) fL RDW Coeff of Jose 13.9 (11.5-14.5) % Plt Count 181 (130-400) K/uL MPV 10.5 H (7.4-10.4) fL Immature Gran % (Auto) 0.2 % Neut % (Auto) 40.7 % Lymph % (Auto) 37.9 % [place] % (Auto) 11.9 % Eos % (Auto) 8.8 % Baso % (Auto) 0.5 % Immature Gran # (Auto) 0.01 (0.00-0.02) K/uL Neut # (Auto) 2.51 (1.4-6.5) K/uL Lymph # (Auto) 2.33 (1.2-3.4) K/uL [place] # (Auto) 0.73 H (0.11-0.59) K/uL Eos # (Auto) 0.54 H (0-0.5) K/uL Baso # (Auto) 0.03 (0-0.2) K/uL Sodium (136-145) mmol/L Potassium (3.5-5.1) mmol/L Chloride (98-107) mmol/L Carbon Dioxide (21-32) mmol/L Anion Gap (3-11) BUN (7-18) mg/dl Creatinine (0.6-1.2) mg/dl Est Cr Clr Drug Dosing ml/min Est GFR ( Amer) Est GFR (Non-Af Amer) BUN/Creatinine Ratio (10-20) Glucose (70-99) mg/dl POC Glucose (70-99) Estimat Average Glucose 214 mg/dl Hemoglobin A1c 9.1 H (4.5-5.6) % Calcium (8.5-10.1) mg/dl Triglycerides (0-150) mg/dl Cholesterol (0-200) mg/dl LDL Cholesterol, Calc mg/dl VLDL Cholesterol, Calc mg/dl HDL Cholesterol mg/dl Cholesterol/HDL Ratio TSH (0.300-4.500) uIu/ml Free T4 (0.8-1.6) ng/dl Diagnostic Findings Brain MRI: IMPRESSION: 1. Acute subcentimeter infarction of the parmar radiata left frontal lobe with additional subcentimeter infarction noted about the right thalamus. 2. No acute or subacute territorial infarct, intracranial hemorrhage or midline shift. 3. Indeterminate subcentimeter focus of enhancement about the left caudate head. 3-6 month follow-up contrast-enhanced MRI of the brain recommended to further evaluate. 4. Age-related involutional changes with moderate chronic microvascular ischemic disease. Head MRA: IMPRESSION: 1. Motion degraded exam. 2. Apparent luminal narrowing about the mid to distal right M1 segment may be artifactual or secondary to underlying atherosclerotic vascular disease. Findings could be correlated with CTA if of further clinical concern. 3. Multifocal luminal narrowing about the posterior circulation as above. 4. No aneurysm identified. Neck MRA: Negative Head CTA: IMPRESSION: 1. Significant luminal irregularity with multifocal stenoses in the basilar artery confirming the finding on MRA, presumably atherosclerotic. 2. Severe stenosis in the distal and one proximal P2 segment of the right BEHAVIORAL HEALTH TECH, presumably atherosclerotic. 3. Stenosis of the P2 segment of the left BEHAVIORAL HEALTH TECH, presumably atherosclerotic. 4. The additional findings on MRI suggesting abnormalities of the bilateral M1 segments of the middle cerebral arteries are not confirmed on the CTA. These were therefore artifactual. 5. No focal vessel occlusion or aneurysm. Center port Neck CTA: IMPRESSION: 1. Significant atherosclerosis though the maximum site of stenosis, which is located in the proximal right common carotid artery, is not greater than 50%. Sites of atherosclerotic plaque are detailed above. No hemodynamically significant stenosis. No focal vessel occlusion. Venous Doppler bilateral lower extremities: IMPRESSION: 1. Acute deep venous thrombosis in one of two duplicated left posterior tibial veins. Remainder of the veins of the left lower extremity patent. 2. No deep venous thrombosis in the right lower extremity. Echocardiogram limited: No thrombus seen, bubble study positive for PFO (1) Diabetes Diabetes mellitus complication detail: with polyneuropathy Diabetes mellitus complication status: with neurologic complications Diabetes mellitus watermaster insulin use: with watermaster use Diabetes mellitus type: type 2 Qualified Code(s): E11.42 - Type 2 diabetes mellitus with diabetic polyneuropathy; Z79.4 - group home (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
[2019-01-31] MEDS ORDERED: ENOXAPARIN INJ 40 MG/0.4 ML SYR SQ SCH (21:00)
[2019-01-31] MEDS: APIXABAN 5 MG TABLET PO SCH (21:09)
[2019-02-01 05:57] LABS: Basophils # (auto) 0.03 K/uL (0-0.2); Basophils % (auto) 0.5 %; Eosinophils # (auto) 0.56 K/uL (0-0.5); Eosinophils % (auto) 9.8 %; Hematocrit (blood only) 40.7 % (37-47); Hemoglobin 13.7 g/dL (12.0-16.0); Immature Granulocytes # (auto) 0.01 K/uL (0.00-0.02); Immature Granulocytes % (auto) 0.2 %; Lymphocytes # (auto) 2.23 K/uL (1.2-3.4); Lymphocytes % (auto) 39.2 %; Mean Corpuscular Hgb Conc 33.7 g/dL (32-36); Mean Platelet Volume 11.2 fL (7.4-10.4); Monocytes % (auto) 12.3 %; Neutrophils # (auto) 2.16 K/uL (1.4-6.5); Platelet Count 190 K/uL (130-400); RDW Standard Deviation 43.3 fL (36.4-46.3); Red Blood Count 4.79 M/uL (4.2-5.4); White Blood Count 5.69 K/uL (4.8-10.8)
[2019-02-01] MEDS: LEVOTHYROXINE SODIUM 88 MCG TABLET PO SCH (06:08)
[2019-02-01 06:40] LABS: BUN Creatinine Ratio 19.1 (10-20); Calcium 8.9 mg/dl (8.5-10.1); Creatinine Clr Calc Pharmacy 50.8 ml/min; Est GFR (African American) 53.9; Est GFR (Non-African American) 46.5; Potassium 4.1 mmol/L (3.5-5.1)
[2019-02-01] MEDS ORDERED: OPTIRAY 320 125ml IV PRN (08:42)
--- NOTE | 2019-02-01 09:03 | CT Scan Report ---
ABDOMEN AND PELVIS CT WITH IV AND ORAL CONTRAST HISTORY: Acute upper abdominal pain upper abdominal pain TECHNIQUE: Multiaxial CT images of the abdomen and pelvis were performed following the use of intrave nous and oral contrast. A dose lowering technique was utilized adhering to the principles of ALARA. COMPARISON STUDY: CTA of the chest of same day. FINDINGS: Mild subsegmental bibasilar atelectasis/scarring. No pneumatosis or pneumoperitoneum. Imaged inferio r cardiac chambers are mildly enlarged. Gallbladder, spleen, liver, pancreas and adrenal glands are unremarkable. No biliary ductal dilation. Bilateral renal cysts measure up to 5.9 cm on the left. No renal or ureteral calculi or obstructive uropathy. Decompressed or bladder with wall thickening. Prior hysterectomy. No adnexal mass lesions. Extensive mixed plaque formation of the abdominal aorta without aneurysm. IVC is unremarkable. No javi nopathy by CT size criteria. No bowel obstruction or focal bowel wall thickening. Terminal ileum is unremarkable. Surgically absen t appendix. No ascites or mesenteric stranding. Fat filled periumbilical hernia, diastases 1.9 cm. So ft tissues are unremarkable. Healed remote right-sided rib fractures. Demineralized appearance of the bones. Degenerative changes of the spine, pelvis and hips. Grade 1 anterolisthesis L5 on S1 likely s econdary to long-standing facet arthrosis. Mild dextroscoliosis of the lumbar spine. IMPRESSION: 1. No acute intra-abdominal or intrapelvic abnormality identified. 2. No bowel obstruction or focal bowel wall thickening. 3. Prior appendectomy and hysterectomy. 4. Additional findings as above. Electronically signed by: Mor Tam M.D. 02/01/2019 9:01 AM
--- NOTE | 2019-02-01 09:05 | CT Scan Report ---
CHEST CTA for PULMONARY ARTERIES CT DOSE: 1886.53 mGy.cm HISTORY: Shortness of breath. TECHNIQUE: Multiaxial CT images of the chest were performed following the intravenous administration of contrast to evaluate the pulmonary arteries. Maximal intensity projection images were also obtaine d. A dose lowering technique was utilized adhering to the principles of ALARA. COMPARISON STUDY: None. FINDINGS: Normal caliber thoracic aorta with no evidence for dissection. The heart is borderline enla rged. No pleural or pericardial effusions. Moderate calcified and noncalcified plaque within the dist al aortic arch. Questionable small linear filling defect seen within the proximal right lower lobar p ulmonary artery is likely due to streak artifact. Otherwise, no definite filling defects within the p ulmonary arteries to suggest pulmonary embolus. No evidence for right-sided heart strain. Please refe r to the dedicated abdomen and pelvis CT performed the same day for further evaluation of the abdomin al structures. Partially visualized cervical spinal fusion hardware. Normal esophagus. No mediastinal or hilar lymphadenopathy. Calcified subcarinal lymph node. Old, healed right-sided rib fractures. No pneumothorax. Small focal area of peripheral interstitial thickening within the lingula. There is al so mild peripheral thickening within the right lung base. This may represent chronic interstitial afsaneh nge. Small focal linear density along the medial aspect of the left lung apex which may represent ate lectasis from the adjacent aorta. This is best seen on image 218. This also favors chronic change. Ot herwise, no focal lung consolidations to suggest pneumonia. Calcified left hilar lymph nodes. Mild ce ntral peribronchial thickening. IMPRESSION: 1. No evidence for pulmonary embolus. 2. Mild central peribronchial thickening and mild peripheral interstitial thickening most pronounced at the lung bases. This favors chronic change. No focal lung consolidations to suggest pneumonia. Electronically signed by: Bradley Devine M.D. 02/01/2019 9:03 AM
[2019-02-01] MEDS: ATORVASTATIN 40 MG TAB PO SCH (09:22)
[2019-02-01] MEDS: PANTOprazole 40 MG TAB PO SCH ×2 (09:22→20:26)
[2019-02-01] MEDS: ASPIRIN 81 MG ECTAB PO SCH (09:22)
[2019-02-01] MEDS: APIXABAN 5 MG TABLET PO SCH ×2 (09:22→20:25)
[2019-02-01] MEDS: INSULIN GLARGINE SOLOSTAR 100 UNITS/ML 3 ML PEN SC SCH ×2 (09:23→20:26)
[2019-02-01] MEDS: INSULIN ASPART 100 UNITS/ML 3 ML PEN SC SCH ×4 (09:25→20:27)
--- NOTE | 2019-02-01 10:33 | Neurology Progress Note ---
Date of Service February 01, 2019 Assessment & Plan (1) Stroke: This patient presents with 2 small acute strokes, one within the right cerebral hemisphere, the other within the left. The right thalamic stroke has resulted in some left-sided sensory motor weakness which has been stable to improved since her admission. The left frontal subcortical infarct is clinically silent. Cardioembolism suspected, if not probable, in light of the recently identified PFO and left lower extremity DVT (paradoxical embolism). However, this patient does have other stroke risk factors including diabetes mellitus, hypertension, and dyslipidemia. She also has a moderate degree of diffuse intracranial and extracranial cerebrovascular disease, although no hemodynamically significant stenotic lesions identified. I agree with daily low-dose aspirin and the recent initiation of Eliquis. However, in light of the PFO and likely acute stroke related to paradoxical embolism, I would recommend continuing with both her aspirin and anticoagulant long-term, unless if she would be considered an appropriate candidate for PFO closure. Agree with cardiology consultation in this regard. She may need a referral to [facility] to discuss potential PFO closure in more detail. This patient will also need to follow-up contrast enhanced brain MRI in 3 to 6 months to reassess the nonspecific focus of enhancement of the left caudate head. Subjective Follow-up for stroke The patient is a 73-year-old female who presented with a left-sided sensory motor disturbance consistent with an acute right thalamic infarct as identified on brain MRI. She was also found to have an acute infarct within the left parmar radiata/frontal lobe as well as a small area of enhancement at the left caudate head, probably incidental. The patient reports that her left-sided weakness and sensory loss or modestly improved compared with yesterday. She also reports some mild improvement in her swallowing difficulty, no choking, no significant issues with eating or drinking reported. The patient has completed additional testing including a CT angiogram of the head and neck and an echocardiogram. She was found to have diffuse atherosclerotic disease as well as a probable PFO. A lower extremity ultrasound was completed as well as she has been complaining of some distal left lower extremity tenderness. She was found to have a DVT. I discussed her case with Dr. Vincent last night. The patient has been started on Eliquis. Her Plavix has been discontinued in favor of daily low-dose aspirin. She continues with Lipitor. Additional details as below. Review of Systems Constitutional: no fever and no chills Eyes: no blind spots and no diplopia Musculoskeletal: no myalgia Neurologic: as per Subjective / HPI Physical Exam Physical Exam: The patient is a well-developed elderly female. She is alert and fully oriented. Recent and remote memory intact. Attention and concentration normal. Patient exhibits a normal spontaneous speech pattern. She exhibits an age-appropriate fund of knowledge and normal comprehension of vocabulary. Visual jett full to confrontation. Visual acuity normal. Pupils equal round react to light and accommodation. Eye movements normal. Facial sensation intact. There is no facial droop. Hearing intact. Palate elevates to midline. Shoulder shrug intact. Tongue protrudes to midline. There is a mild sensory deficit to all modalities affecting the left arm and leg. There is mild dysmetria with [id number] and [id number] on the left. Patient is able to stand and ambulate although she is a bit tentative on the left. Muscle strength is grossly normal although she does have a mild left upper extremity pronator drift and fixes on the left with arm roll. There is no atrophy. No abnormal movements observed. Results & Data Vital Signs (Past 12 Hours) Vital Signs Temp Pulse Pulse Resp BP Pulse Ox 02/01/19 07:45 37.2 C 68 20 98/57 L 94 02/01/19 03:36 36.9 C 75 18 124/71 90 02/01/19 00:03 69 01/31/19 23:47 36.7 C 75 19 112/67 90 Laboratory Results Recent labs reviewed. WBC 5.69, hemoglobin 13.7, hematocrit 40.7, platelet count 190, sodium 136, potassium 4.1, BUN 22, creatinine 1.15, glucose [address] angiogram of the neck revealed significant atherosclerosis, most notable at the proximal right common carotid artery, but not greater than 50%. A CT angiogram of the head reveals multifocal stenoses within the basilar artery, stenosis within the proximal and distal right [employer]ICAL APPOINTMENT CLERK as well as a stenosis within the left MEDICAL APPOINTMENT CLERK. A lower extremity Doppler reveals an acute DVT in 1 of the left posterior tibial veins. An echocardiogram was technically limited. Left ventricular systolic function low normal. Patent majano ovale suspected. (1) Stroke CVA mechanism: unspecified Qualified Code(s): I63.9 - Cerebral infarction, unspecified
--- NOTE | 2019-02-01 10:57 | Consultation Report ---
DATE OF CONSULTATION: 02/01/2019 REQUESTING: Tracey Vincent MD BEAN SNAPPER: Malachi Aleman DO, [facility]. REASON FOR CONSULTATION: Possible PFO on echocardiogram with associated new onset DVT and stroke. Dear Tracey, Thank you for requesting cardiology consultation on the patient with regard to her acute stroke. She notes she was driving home from a meeting. Her left arm became weak and numb. She just thought it went to sleep. She went to bed that night, and the next morning when she woke up, she had difficulty ambulating with significant weakness in her left leg and ongoing numbness and weakness in her left arm. She denied any slurred speech or difficulty finding words. She was brought to the Emergency Room by her daughter. She also describes a headache, and she describes fatigue. She has had an extensive workup both as an inpatient and as an outpatient. Her LV function was low normal in the range of 50-55% here in the hospital, which is unchanged from her outpatient echo. There is a question of a patent foramen ovale. I did personally review the images. She has dense contrast on the right side of her heart, and there is limited if any bubbles across to the left side. She underwent additional imaging of her brain, which does suggest intracranial disease. In addition, she has been found to have a DVT which is unprovoked in her left leg. Her CT of her brain suggests multifocal stenosis of the basilar artery along with severe stenosis in the distal and proximal P2 segment of the right CONVEYOR TENDER, stenosis of the P2 segment of the left CONVEYOR TENDER. Brain MRI reveals an acute subcentimeter infarct in the parmar radiata on the left with a subcentimeter infarction noted on the right thalamus with an indeterminate subcentimeter focus of enhancement in the left caudate of unclear etiology. Her neck CTA, she did not have significant stenosis with 50% stenosis in the right carotid and less than 25% stenosis in the left common carotid. She underwent CT of her abdomen and chest to rule out malignancy, and there was nothing noted. She is feeling better today. She has been ambulating in the hallway. The numbness in her left arm is improving. The weakness in her left leg has markedly improved. She denies any bleeding, bruising, dark stools or black stools. The intermittent swelling she has had on her left leg has improved. The rest of review of systems is otherwise negative. PAST MEDICAL HISTORY: 1. Acute stroke in January 2019 involving the parmar radiata on the left as well as subcentimeter infarction as well as the right thalamus. 2. Indeterminate subcentimeter focus of enhancement in the left caudate. 3. Left lower extremity DVT. 4. Left bundle branch block. 5. Low normal left ventricular systolic function. 6. History of non-Hodgkin's lymphoma in 1992, status post chemotherapy and radiation to her upper chest and neck. 7. Significant left ventricular hypertrophy with low normal left ventricular systolic function and an elevated LVOT velocity. 8. Nuclear stress test 01/2017 suggesting inferior, inferolateral, and lateral wall ischemia. LV function 64%. 9. Cardiac catheterization 01/2017 at [facility] without evidence of epicardial coronary artery disease and normal left ventricular end-diastolic pressure. 10. Mild sleep apnea. SOCIAL HISTORY: She smoked tobacco pack per day for greater than 40 years, stopping in 1992. She occasionally drinks alcohol. 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 She is . FAMILY HISTORY: Noncontributory. ALLERGIES: No known drug allergies. MEDICATIONS: Reviewed in electronic medical record. PHYSICAL EXAMINATION: GENERAL: She is awake, alert, oriented x3. She is in no acute distress. She answers questions appropriately. She is awake, alert, and oriented x3. She looks younger than her stated age. VITAL SIGNS: Her heart rate is 68, blood pressure 98/57, respirations 20, sat 94%. HEENT: 2+ carotid upstrokes. No evidence of carotid bruits. Jugular venous pressure appeared normal. Sclerae anicteric. Hearing is normal. LUNGS: Clear to auscultation bilaterally. No rales, rhonchi, or wheezing. HEART: Regular rate and rhythm. No appreciable murmurs, rubs, or gallops. ABDOMEN: Soft, nontender, nondistended. Positive bowel sounds. EXTREMITIES: Trace bilateral lower extremity edema. No significant swelling, the left leg being more swollen than the right. PSYCHIATRIC: Affect appeared appropriate. DIAGNOSTIC STUDIES: As discussed above. EKG: Left bundle branch block. nurse monitoring: No noted atrial arrhythmias. IMPRESSION: 1. Acute stroke involving with 2 areas of infarction as described above. 2. Unprovoked deep venous thrombosis in her left leg. 3. Low normal left ventricular systolic function. 4. Left bundle branch block. 5. No evidence of epicardial coronary artery disease by cardiac catheterization 01/2017. 6. Diabetes mellitus type 2. 7. Sleep apnea. 8. Questionable patent foramen ovale by echocardiogram. I did personally review her echocardiogram from yesterday with Dr. Marroquin who read it. If she has a PFO, it is small at best. Her bubble studies revealed dense bubbles on the right side of her heart, and there is a question of any bubbles on the left side. In addition, based on the current ACC guidelines, she would not meet criteria for PFO closure. She is over the age of 58. She has atherosclerotic disease along with multiple risk factors for vascular disease. Therefore, my recommendation, especially in light of an unprovoked DVT would be anticoagulation at this point. My concern as I discussed with Dr. Vincent by phone is could she have an underlying malignancy especially in light of the lesion found on her brain. All of her imaging studies today do not suggest a malignancy. She is due to have her mammogram and colonoscopy. At this point, I would leave her on anticoagulation. We can determine down the road whether after 3 months whether she should be on anticoagulation lifelong or whether she should be on antiplatelet agents. I did review her monitor. There is nothing to suggest atrial fibrillation. In addition, she had a 4-week event recorder as an outpatient, which did not reveal atrial fibrillation. It is of concern though that the potential cause for her stroke could be AFib, which would be another reason to leave her on lifelong anticoagulation. This would not explain the venous clot in her left leg though. We will continue to follow her with you. Thank you for allowing us to participate in her care. ROBERT
[2019-02-01] MEDS: ACETAMINOPHEN 325 MG TAB PO PRN (14:54)
--- NOTE | 2019-02-01 14:55 | Hospitalist Progress Note ---
Date of Service February 01, 2019 Assessment & Plan (1) Stroke: Patient with new left sided deficit. Has history of HTN, HLP, DM and suspected old CVA per CT read. 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 but no occlusions or aneurysms -continue ASA 81 and started Eliquis for DVT and possible paradoxical emboli -consult Cardio appreciated-no recommendation for closure of PFO at this time- determination for long-term anticoagulation will be considered but needs at least a minimum of 3 months given DVT -Started Lipitor 40mg po daily-watch for myalgias as has had previously, could add Co Q10 if needed -continue to hold Carvedilol and Valsartan/HCTZ to allow for permissive hypertension -Labetalol IV PRN SBP > 200mmHg -Neurology consultation -appreciate assistance with this case, will recommend follow-up with neurology within 1 month -Continue telemetry monitoring for atrial fibrillation and recommend cardiac event monitor after discharge likely for 1 month if no atrial fibrillation found on this admission (2) Acute DVT of left tibial vein: Does have a h/o high risk colon polyps but had last colonoscopy in the fall and due for another one in afew months-on an annual screening program -is UTD on mammogram Not sedentary, no recent surgery or long trips, no personal or family history of VTE Unprovoked DVT Discussed options for anticoagulation with the patient as well as her daughter at the bedside and risk and benefits. She has no history of significant bleeding in the past and is agreeable to starting anticoagulation. -Continue Eliquis 10mg po bid x 7 days and then 5mg po bid-today day #2 - CTA chest checked for PE given sharp pains under bilat ribs going on for 3-4 weeks-negative for PE -needs updated mammo as an outpatient -CT C/A/P to look for cause of chest pains, upper abd pains, not feeling well for 1-2 months overall, r/o malignancy--> negative for evidence of malignancy at this point -Needs updated colonoscopy as scheduled coming up soon as (3) Chest pain: Located under the bilateral ribs and upper abdomen for 1 month -CTA chest for PE negative -Anticoagulating her as above for DVT and she is hemodynamically stable (4) Hypertension: Blood pressures on the low side today -Continue holding Carvedilol and Diovan for now to allow for permissive hypertension -Labetalol IV PRN -Continue to monitor (5) Diabetes: Patient with DM with peripheral neuropathy. HgAIC here is uncontrolled at 9.1%, with hyperglycemia here which is now improved -Continue Lantus 25u BID -Continue sliding scale ADA diet -Holding home metformin (6) Dyslipidemia: Chronic Lipids are quite elevated with total cholesterol 228, LDL 127, triglycerides in the 300s -Atorvastatin 40mg po daily was added (7) GERD (gastroesophageal reflux disease): Chronic. Stable -Continue Protonix daily (8) Hypothyroid: Chronic. -TSH elevated at 10.5 -increased LT4 to 88mcg and repeat TFTs in 4-6 weeks (9) Abnormal brain MRI: indeterminate lesion left caudate head-with h/o high risk polyps of colon, h/o NHL, question if could be met? -repeat brain MRI in 3 months -has repeat colonoscopy coming up soon, is due for annual mammogram (10) PFO (patent foramen ovale): As seen on echocardiogram as above Cardiology consulted as above -no need for closure (11) History of non-Hodgkin's lymphoma: Noted in history, in remission for many years (12) Chronic lower back pain: Start lidocaine patch (13) DVT prophylaxis: Eliquis as above for acute DVT Disposition-remain on telemetry overnight and if lower back pain improved and the gait was steady, can discharge home tomorrow PT/OT consults placed-PT recommending home with home health, OT recommending rehab but patient is declining rehab placement Subjective Patient feeling stronger today, less numbness on the left side. She is however having a recurrence of her chronic severe lower back pain. She feels that this is made her gait unsteady today and does not feel ready to go home yet. She is still adamantly declining going to a rehab facility. No evidence of bleeding anywhere. No chest pain or shortness of breath., No new focal neurological symptoms. Telemetry with normal sinus rhythm, IVCD, rate 60s to 80s. Left calf pain is actually completely resolved which feels the swelling is down in the leg. Review of Systems Review of Systems: All systems reviewed & are unremarkable except as noted in HPI & below Physical Exam Constitutional: WD/WN, vitals as above + obese Eyes: PERRL, conjunctivae normal, anicteric sclerae EOM intact bilaterally ENMT: Ears: no hearing impairment Neck: trachea midline, no thyromegaly Thyroid: no thyroid mass and thyroid nontender Respiratory: normal respiratory effort, lungs clear to auscultation Cardiovascular: Rate/Rhythm: regular rate and regular rhythm Heart Sounds: no murmur Extremities: + edema (Left leg with trace pitting edema improved from previous, right leg no edema); no calf tenderness Gastrointestinal (Abdomen): normal bowel sounds, soft, nontender, no hepatosplenomegaly Musculoskeletal: Spine: + lumbar spinal tenderness (In the midline) Extremities: no cyanosis and no clubbing Skin: no rashes, warm and dry Neurologic: CN's II-XI intact bilaterally, deep tendon reflexes 2+ bilaterally, + focal motor deficit (4+ out of 5 strength in the proximal muscles of the left upper and lower extremities, otherwise 5 out of 5 strength throughout) and awake Motor/Sensory: no tremor Psychiatric: A+Ox3, euthymic affect Results & Data Vital Signs (Past 12 Hours) Vital Signs Temp Pulse Resp BP Pulse Ox 02/01/19 11:20 36.6 C 85 20 142/76 H 91 02/01/19 07:45 37.2 C 68 20 98/57 L 94 02/01/19 03:36 36.9 C 75 18 124/71 90 Laboratory Results Labs reviewed and within normal limits Diagnostic Findings CT chest abdomen pelvis: 1. No evidence for pulmonary embolus. 2. Mild central peribronchial thickening and mild peripheral interstitial thickening most pronounced at the lung bases. This favors chronic change. No focal lung consolidations to suggest pneumonia. 1. No acute intra-abdominal or intrapelvic abnormality identified. 2. No bowel obstruction or focal bowel wall thickening. 3. Prior appendectomy and hysterectomy. (1) Diabetes Diabetes mellitus complication detail: with polyneuropathy Diabetes mellitus complication status: with neurologic complications Diabetes mellitus halfway insulin use: with halfway use Diabetes mellitus type: type 2 Qualified Code(s): E11.42 - Type 2 diabetes mellitus with diabetic polyneuropathy; Z79.4 - manager terminal (current) use of insulin (2) Hypothyroid Hypothyroidism type: acquired Qualified Code(s): E03.9 - Hypothyroidism, unspecified (3) GERD (gastroesophageal reflux disease) Esophagitis presence: esophagitis presence not specified Qualified Code(s): K21.9 - Gastro-esophageal reflux disease without esophagitis (4) Hypertension Hypertension type: essential hypertension Qualified Code(s): I10 - Essential (primary) hypertension (5) Stroke CVA mechanism: unspecified Qualified Code(s): I63.9 - Cerebral infarction, un specified
[2019-02-01] MEDS: LIDOCAINE 5% 1 PATCH TD SCH (15:42)
[2019-02-02] MEDS: ONDANSETRON INJ 2 MG/ML 2 ML VIAL IV PRN ×2 (05:48→11:36)
[2019-02-02 05:51] LABS: Basophils # (auto) 0.03 K/uL (0-0.2); Basophils % (auto) 0.6 %; Eosinophils # (auto) 0.55 K/uL (0-0.5); Eosinophils % (auto) 10.4 %; Hematocrit (blood only) 39.9 % (37-47); Hemoglobin 13.4 g/dL (12.0-16.0); Immature Granulocytes # (auto) 0.01 K/uL (0.00-0.02); Immature Granulocytes % (auto) 0.2 %; Lymphocytes # (auto) 1.75 K/uL (1.2-3.4); Lymphocytes % (auto) 33.1 %; Mean Corpuscular Hgb Conc 33.6 g/dL (32-36); Mean Corpuscular Volume 84.7 fL (80-100); Mean Platelet Volume 11.2 fL (7.4-10.4); Monocytes # (auto) 0.78 K/uL (0.11-0.59); Monocytes % (auto) 14.8 %; Neutrophils # (auto) 2.16 K/uL (1.4-6.5); Neutrophils % (auto) 40.9 %; Platelet Count 191 K/uL (130-400); RDW Coefficient of Variation 14.1 % (11.5-14.5); RDW Standard Deviation 43.6 fL (36.4-46.3); Red Blood Count 4.71 M/uL (4.2-5.4); White Blood Count 5.28 K/uL (4.8-10.8)
[2019-02-02] MEDS: LEVOTHYROXINE SODIUM 88 MCG TABLET PO SCH (05:52)
[2019-02-02 06:28] LABS: BUN Creatinine Ratio 20.7 (10-20); Calcium 8.4 mg/dl (8.5-10.1); Creatinine Clr Calc Pharmacy 49.7 ml/min; Est GFR (African American) 52.2; Est GFR (Non-African American) 45.1; Potassium 3.8 mmol/L (3.5-5.1)
[2019-02-02] MEDS: ACETAMINOPHEN 325 MG TAB PO PRN ×2 (08:04→17:06)
[2019-02-02] MEDS: PANTOprazole 40 MG TAB PO SCH ×2 (08:04→20:47)
[2019-02-02] MEDS: ATORVASTATIN 40 MG TAB PO SCH (08:05)
[2019-02-02] MEDS: APIXABAN 5 MG TABLET PO SCH ×2 (08:05→20:46)
[2019-02-02] MEDS: LIDOCAINE 5% 1 PATCH TD SCH (08:05)
[2019-02-02] MEDS: ASPIRIN 81 MG ECTAB PO SCH (08:05)
[2019-02-02] MEDS: INSULIN GLARGINE SOLOSTAR 100 UNITS/ML 3 ML PEN SC SCH (08:08)
[2019-02-02] MEDS: INSULIN ASPART 100 UNITS/ML 3 ML PEN SC SCH ×4 (08:08→20:50)
--- NOTE | 2019-02-02 11:45 | Hospitalist Progress Note ---
Date of Service February 02, 2019 Assessment & Plan (1) Stroke: Patient with new left sided deficit. Has history of HTN, HLP, DM and suspected old CVA per CT read. 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, concern for paradoxical embolus given DVT and PFO on ECHO although review of echocardiogram today by cardiology shows only a few bubbles crossing over to the left side MRA head and neck with stenoses--> CTA head and neck show 50% stenosis of the proximal right common carotid artery as well as significant basilar artery atherosclerosis as well as bilateral [employer] stenoses but no occlusions or aneurysms -continue ASA 81 and started Eliquis for DVT and possible paradoxical emboli -consult Cardio appreciated-no recommendation for closure of PFO at this time- determination for long-term anticoagulation will be considered but needs at least a minimum of 3 months given DVT -Started Lipitor 40mg po daily-watch for myalgias as has had previously, could add Co Q10 if needed -continue to hold Carvedilol and Valsartan/HCTZ to allow for permissive hypertension-blood pressures acceptable at this time -Labetalol IV PRN SBP > 200mmHg -Neurology consultation -appreciate assistance with this case, will recommend follow-up with neurology within 1 month -Continue telemetry monitoring for atrial fibrillation and recommend cardiac event monitor after discharge likely for 1 month if no atrial fibrillation found on this admission -Now with new onset dizziness, nausea and headache-we will order urgent repeat MRI of the brain without contrast to look for new stroke in the posterior circulation (2) Acute DVT of left tibial vein: Does have a h/o high risk colon polyps but had last colonoscopy in the fall and due for another one in afew months-on an annual screening program -is UTD on mammogram Not sedentary, no recent surgery or long trips, no personal or family history of VTE Unprovoked DVT Discussed options for anticoagulation with the patient as well as her daughter at the bedside and risk and benefits. She has no history of significant bleeding in the past and is agreeable to starting anticoagulation. -Continue Eliquis 10mg po bid x 7 days and then 5mg po bid-today day #3 - CTA chest checked for PE given sharp pains under bilat ribs going on for 3-4 weeks-negative for PE -needs updated mammo as an outpatient -CT C/A/P to look for cause of chest pains, upper abd pains, not feeling well for 1-2 months overall, r/o malignancy--> negative for evidence of malignancy at this point -Needs updated colonoscopy as scheduled coming up soon as (3) Chest pain: Located under the bilateral ribs and upper abdomen for 1 month intermittent -CTA chest for PE negative -Anticoagulating her as above for DVT and she is hemodynamically stable (4) Hypertension: Blood pressures now acceptable -Continue holding Carvedilol and Diovan for now to allow for permissive hypertension -Labetalol IV PRN -Continue to monitor (5) Diabetes: Patient with DM with peripheral neuropathy. HgAIC here is uncontrolled at 9.1%, with persistent hyperglycemia -Increase Lantus to 27 units twice daily -Continue sliding scale and tighten down further ADA diet -Holding home metformin (6) Dyslipidemia: Chronic Lipids are quite elevated with total cholesterol 228, LDL 127, triglycerides in the 300s -Atorvastatin 40mg po daily was added -Can add CoQ10 if develops myalgias again like she did previously (7) GERD (gastroesophageal reflux disease): Chronic. Stable -Continue Protonix daily (8) Hypothyroid: Chronic. -TSH elevated at 10.5 -increased LT4 to 88mcg and repeat TFTs in 4-6 weeks (9) Abnormal brain MRI: indeterminate lesion left caudate head-with h/o high risk polyps of colon, h/o NHL, question if could be met? -repeat brain MRI in 3 months -has repeat colonoscopy coming up soon, is due for annual mammogram (10) PFO (patent foramen ovale): As seen on echocardiogram as above Cardiology consulted as above -no need for closure (11) History of non-Hodgkin's lymphoma: Noted in history, in remission for many years (12) Chronic lower back pain: Improved-continue lidocaine patch (13) Dizziness: New in onset overnight on 02/01 Repeat MRI as above to rule out posterior circulation stroke, she does have significant basilar artery atherosclerosis (14) Nausea: Secondary to dizziness as above -Zofran as needed With associated headache-improved with acetaminophen Repeating head imaging as above (15) DVT prophylaxis: Eliquis as above for acute DVT Disposition-remain on telemetry given new onset dizziness and repeat work-up for new stroke PT/OT consults placed-PT recommending home with home health, OT recommending rehab but patient is declining rehab placement-will reassess depending on current clinical status given new dizziness as above Subjective Patient started having an 8 out of 10 frontal headache along with dizziness with looking to the left and nausea in the middle of the night. Headache and nausea had improved with taking Zofran and acetaminophen but now has since returned with more nausea. The dizziness is not worsened with standing up but is worsened with rolling to the left or looking to the left. She denies any other new issues. Reports her numbness in the left arm and leg is much improved and the strength is much improved. Telemetry with normal sinus rhythm with rates in the 60s to 70s. I discussed the case with neurology. Review of Systems Review of Systems: All systems reviewed & are unremarkable except as noted in HPI & below Physical Exam Constitutional: WD/WN, vitals as above + obese Eyes: PERRL, conjunctivae normal, anicteric sclerae PERRL and EOM intact bilaterally No nystagmus, but looking to the left cause significant dizziness ENMT: external ear and nose normal, oropharynx normal Ears: no hearing impairment Neck: trachea midline, no thyromegaly Thyroid: no thyroid mass and thyroid nontender Respiratory: normal respiratory effort, lungs clear to auscultation Cardiovascular: Rate/Rhythm: regular rate and regular rhythm Heart Sounds: no murmur Extremities: + edema (Left leg with trace pitting edema improved from previous, right leg no edema); no calf tenderness Gastrointestinal (Abdomen): normal bowel sounds, soft, nontender, no hepatosplenomegaly Musculoskeletal: Spine: + lumbar spinal tenderness (In the midline) Extremities: no cyanosis and no clubbing Skin: no rashes, warm and dry Neurologic: CN's II-XI intact bilaterally and awake Coordination: normal uthrth-pe-fpqj test, normal qowo-qv-mqpf test and normal rapid alternating movements Psychiatric: A+Ox3, euthymic affect Results & Data Vital Signs (Past 12 Hours) Vital Signs Temp Pulse Resp BP Pulse Ox 02/02/19 11:26 36.5 C 77 18 160/81 H 91 02/02/19 07:08 36.6 C 68 19 167/66 H 91 02/02/19 05:53 153/65 H 02/02/19 03:31 36.7 C 83 18 106/69 91 02/01/19 23:43 36.6 C 71 18 133/64 92 Laboratory Results 02/02/19 02/02/19 02/02/19 Range/Units 11:08 07:04 05:12 WBC (4.8-10.8) K/uL RBC (4.2-5.4) M/uL Hgb (12.0-16.0) g/dL Hct (37-47) % MCV (80-100) fL MCH (25-34) pg MCHC (32-36) g/dL RDW Std Deviation (36.4-46.3) fL RDW Coeff of Jose (11.5-14.5) % Plt Count (130-400) K/uL MPV (7.4-10.4) fL Immature Gran % (Auto) % Neut % (Auto) % Lymph % (Auto) % [place] % (Auto) % Eos % (Auto) % Baso % (Auto) % Immature Gran # (Auto) (0.00-0.02) K/uL Neut # (Auto) (1.4-6.5) K/uL Lymph # (Auto) (1.2-3.4) K/uL [place] # (Auto) (0.11-0.59) K/uL Eos # (Auto) (0-0.5) K/uL Baso # (Auto) (0-0.2) K/uL Sodium 136 (136-145) mmol/L Potassium 3.8 (3.5-5.1) mmol/L Chloride 104 (98-107) mmol/L Carbon Dioxide 26 (21-32) mmol/L Anion Gap 6.0 (3-11) BUN 24 H (7-18) mg/dl Creatinine 1.18 (0.6-1.2) mg/dl Est Cr Clr Drug Dosing 49.7 ml/min Est GFR ( Amer) 52.2 Est GFR (Non-Af Amer) 45.1 BUN/Creatinine Ratio 20.7 H (10-20) Glucose 219 H (70-99) mg/dl POC Glucose 167 H 229 H (70-99) Calcium 8.4 L (8.5-10.1) mg/dl 02/02/19 02/02/19 02/01/19 Range/Units 05:12 04:47 19:03 WBC 5.28 (4.8-10.8) K/uL RBC 4.71 (4.2-5.4) M/uL Hgb 13.4 (12.0-16.0) g/dL Hct 39.9 (37-47) % MCV 84.7 (80-100) fL MCH 28.5 (25-34) pg MCHC 33.6 (32-36) g/dL RDW Std Deviation 43.6 (36.4-46.3) fL RDW Coeff of Jose 14.1 (11.5-14.5) % Plt Count 191 (130-400) K/uL MPV 11.2 H (7.4-10.4) fL Immature Gran % (Auto) 0.2 % Neut % (Auto) 40.9 % Lymph % (Auto) 33.1 % [place] % (Auto) 14.8 % Eos % (Auto) 10.4 % Baso % (Auto) 0.6 % Immature Gran # (Auto) 0.01 (0.00-0.02) K/uL Neut # (Auto) 2.16 (1.4-6.5) K/uL Lymph # (Auto) 1.75 (1.2-3.4) K/uL [place] # (Auto) 0.78 H (0.11-0.59) K/uL Eos # (Auto) 0.55 H (0-0.5) K/uL Baso # (Auto) 0.03 (0-0.2) K/uL Sodium (136-145) mmol/L Potassium (3.5-5.1) mmol/L Chloride (98-107) mmol/L Carbon Dioxide (21-32) mmol/L Anion Gap (3-11) BUN (7-18) mg/dl Creatinine (0.6-1.2) mg/dl Est Cr Clr Drug Dosing ml/min Est GFR ( Amer) Est GFR (Non-Af Amer) BUN/Creatinine Ratio (10-20) Glucose (70-99) mg/dl POC Glucose 225 H 167 H (70-99) Calcium (8.5-10.1) mg/dl 02/01/19 02/01/19 Range/Units 15:37 11:44 WBC (4.8-10.8) K/uL RBC (4.2-5.4) M/uL Hgb (12.0-16.0) g/dL Hct (37-47) % MCV (80-100) fL MCH (25-34) pg MCHC (32-36) g/dL RDW Std Deviation (36.4-46.3) fL RDW Coeff of Jose (11.5-14.5) % Plt Count (130-400) K/uL MPV (7.4-10.4) fL Immature Gran % (Auto) % Neut % (Auto) % Lymph % (Auto) % [place] % (Auto) % Eos % (Auto) % Baso % (Auto) % Immature Gran # (Auto) (0.00-0.02) K/uL Neut # (Auto) (1.4-6.5) K/uL Lymph # (Auto) (1.2-3.4) K/uL [place] # (Auto) (0.11-0.59) K/uL Eos # (Auto) (0-0.5) K/uL Baso # (Auto) (0-0.2) K/uL Sodium (136-145) mmol/L Potassium (3.5-5.1) mmol/L Chloride (98-107) mmol/L Carbon Dioxide (21-32) mmol/L Anion Gap (3-11) BUN (7-18) mg/dl Creatinine (0.6-1.2) mg/dl Est Cr Clr Drug Dosing ml/min Est GFR ( Amer) Est GFR (Non-Af Amer) BUN/Creatinine Ratio (10-20) Glucose (70-99) mg/dl POC Glucose 181 H 269 H (70-99) Calcium (8.5-10.1) mg/dl (1) Stroke CVA mechanism: unspecified Qualified Code(s): I63.9 - Cerebral infarction, unspecified (2) Hypertension Hypertension type: essential hypertension Qualified Code(s): I10 - Essential (primary) hypertension (3) Diabetes Diabetes mellitus type: type 2 Diabetes mellitus fdc insulin use: with fdc use Diabetes mellitus complication status: with neurologic complications Diabetes mellitus complication detail: with polyneuropathy Qualified Code(s): E11.42 - Type 2 diabetes mellitus with diabetic polyneuropathy; Z79.4 - intermediate designer (current) use of insulin (4) GERD (gastroesophageal reflux disease) Esophagitis presence: esophagitis presence not specified Qualified Code(s): K21.9 - Gastro-esophageal reflux disease without esophagitis (5) Hypothyroid Hypothyroidism type: acquired Qualified Code(s): E03.9 - Hypothyroidism, unspecified
--- NOTE | 2019-02-02 14:06 | Magnetic Resonance Report ---
MR brain wo con HISTORY: 73 years-old Female dizziness,headache,nausea,recent CVA acute dizziness with headache and strokelike symptoms COMPARISON: Brain MRI 01/30/2019 TECHNIQUE: Multiplanar multisequence MRI of the brain was obtained without the use of IV contrast. FINDINGS: Unchanged 9 mm subacute infarction of the right thalamus and unchanged subacute 9 mm infarction of th e parmar radiata about the left frontal lobe. These foci demonstrate mild progressive cytotoxic edema . No additional acute or subacute infarctions identified. Study is mildly motion degraded. Midline st ructures including the corpus callosum, brainstem, optic chiasm, pituitary and pineal glands appear u nremarkable on the sagittal T1 series. No cerebellar tonsillar herniation. Degenerative changes are n oted about the imaged cervical spine. No acute intracranial hemorrhage, midline shift, abnormal extra-axial collection, hydrocephalus or in tra-axial mass identified. Remote lacunar infarctions of the parmar radiata. Age-related involutional changes with moderate T2/flair hyperintensities within the white matter redemonstrated suggestive of chronic microvascular ischemic disease. Trace right and small left mastoid effusions. Mild mucosal t hickening of the ethmoid and frontal sinuses. Orbits, skull and soft tissues are unremarkable. IMPRESSION: 1. Subcentimeter subacute infarctions of the right thalamus and parmar radiata of the left frontal lo be appear unchanged in size from 01/30/2019. No new areas of acute or subacute infarction identified. 2. No acute intracranial hemorrhage, midline shift or abnormal extra-axial collection. 3. Additional findings as above. The above report was generated using voice recognition software. It may contain grammatical, syntax o r spelling errors. Electronically signed by: Mor Tam M.D. 02/02/2019 2:05 PM
[2019-02-02] MEDS ORDERED: DiphenhydrAMINE HCL 50 MG/ML VIAL IV PRN (17:12)
[2019-02-02] MEDS ORDERED: MECLIZINE HCL 25 MG TAB PO PRN (17:12)
[2019-02-02] MEDS ORDERED: METOCLOPRAMIDE HCL INJ 5 MG/ML 2 ML VIAL IV PRN (17:12)
[2019-02-02] MEDS ORDERED: INSULIN GLARGINE SOLOSTAR 100 UNITS/ML 3 ML PEN SC SCH (21:00)
[2019-02-03] MEDS: ACETAMINOPHEN 325 MG TAB PO PRN ×3 (05:24→13:26)
[2019-02-03] MEDS: LEVOTHYROXINE SODIUM 88 MCG TABLET PO SCH (05:24)
[2019-02-03] MEDS ORDERED: INSULIN GLARGINE SOLOSTAR 100 UNITS/ML 3 ML PEN SC SCH (09:00)
[2019-02-03] MEDS: ATORVASTATIN 40 MG TAB PO SCH (09:07)
[2019-02-03] MEDS: PANTOprazole 40 MG TAB PO SCH (09:07)
[2019-02-03] MEDS: APIXABAN 5 MG TABLET PO SCH (09:08)
[2019-02-03] MEDS: ASPIRIN 81 MG ECTAB PO SCH (09:08)
[2019-02-03] MEDS: LIDOCAINE 5% 1 PATCH TD SCH (09:08)
[2019-02-03] MEDS: INSULIN ASPART 100 UNITS/ML 3 ML PEN SC SCH ×3 (09:09→17:48)
[2019-02-03] MEDS: ONDANSETRON INJ 2 MG/ML 2 ML VIAL IV PRN (09:22)
--- NOTE | 2019-02-03 10:01 | Neurology Progress Note ---
Date of Service February 03, 2019 Assessment & Plan (1) BPPV (benign paroxysmal positional vertigo): I suspect this patient has been experiencing an episode of benign positional paroxysmal vertigo. Her vertigo is clearly inducible by having her lie back in bed and turn her head to the right. She does have some nystagmus with this maneuver as well. Her symptoms attenuate rapidly with change in position. There is no evidence for interval development of a brainstem infarct on her recently completed MRI. I would continue with meclizine and/or diphenhydramine and metoclopramide as needed. If her symptoms persist she may be referred to physical therapy for Jayme maneuvers. (2) Stroke: Recent acute bihemispheric cerebral infarcts as described previously. She has a very mild residual left hemiparesis and associated sensory deficit. This issue continues to improve. The bilateral distribution of these infarcts would potentially suggest embolic phenomena. She was found to have a PFO, although small, and an acute left lower extremity DVT. Paradoxical embolism cannot be excluded. I would recommend continuing with anticoagulation and daily low-dose aspirin. She does have other cardiovascular risk factors as described previously. Also, this patient will need to follow-up contrast enhanced brain MRI in 3 to 6 months to reassess the small focus of enhancement within the left caudate head as seen on her previous MRI. The clinical significance of this finding is uncertain. Subjective Follow-up for stroke, episode of vertigo The patient is a 73-year-old female who presented with a mild left hemiparesis and associated sensory loss related to a right thalamic infarct. She was also found to have a clinically silent left frontal infarct on MRI. Her left-sided sensorimotor symptoms have continued to improve during she was diagnosed with a left lower extremity DVT and a small PFO as well. She is currently on Eliquis and low-dose aspirin. 2 nights ago, she experienced an episode of intense vertigo with associated nausea and headache that was triggered by lying back in bed and turning her head to the side. There was some potential concern for either a new stroke or hemorrhagic conversion of a recently identified stroke. A follow-up noncontrast brain MRI was completed which revealed any evidence of a new or interval process. The patient indicates that her vertigo has improved significantly since its onset the other night. However, she continues to experience a mild sense of vertigo which tends to occur when lying back in bed and turning her head more so to the right. She denies a history of BPPV, hearing loss, ear pain, or tinnitus. She denies a headache at this time. She denies a past medical history of migraine. Again, she reports feeling significantly improved since the onset of her vertigo 2 nights ago. Review of Systems Constitutional: no fever and no chills Eyes: no blind spots and no diplopia Ear, Nose, Mouth, Throat: no ear pain, no tinnitus and no hearing loss Neurologic: as per Subjective / HPI Physical Exam Physical Exam: The patient is alert and fully oriented. Recent and remote memory intact. Attention and concentration normal. Patient exhibits a normal spontaneous speech pattern as well as an age-appropriate fund of knowledge and normal comprehension of vocabulary. Visual jett full to confrontation. Visual acuity normal. Pupils equal round react to light and accommodation. Eye movements normal. There is a slight decrement to temperature sensation along the left side of the face. There is no facial droop. Hearing intact. Palate elevates to midline. Shoulder shrug intact. Tongue protrudes to midline. There is a slight relative deficit to vibration and temperature sensation for the left arm and leg as compared to the right. There is mild dysmetria [id number] and [id number] on the left as compared to the right. Patient exhibits normal muscle strength and tone for all 4 limbs although there is a slight left upper extremity pronator drift. Muscle tone normal throughout. No atrophy. No abnormal movements observed. Martin-Hallpike positive with head turn to the right. Results & Data Vital Signs (Past 12 Hours) Vital Signs Temp Pulse Resp BP Pulse Ox 02/03/19 08:20 36.5 C 65 17 121/60 90 02/03/19 03:45 36.4 C L 78 15 139/76 94 02/02/19 23:36 36.7 C 67 16 131/71 91 Laboratory Results Recent labs reviewed. WBC 5.28, hemoglobin 13.4, platelet count 191, sodium 136, potassium 3.8, BUN 24, creatinine 1.18, glucose 219, calcium 8.4 Diagnostic Findings Brain MRI completed yesterday revealed the previously identified subacute infarct within the right thalamus and parmar radiata of the left frontal lobe, no change in size. No new areas of infarct. No evidence of intracranial hemorrhage. This is a noncontrast MRI and the previous identified small focus of enhancement within the left caudate head was not seen. I reviewed the images as well as radiologist interpretation of this test and agree. (1) Stroke CVA mechanism: unspecified Qualified Code(s): I63.9 - Cerebral infarction, unspecified
--- NOTE | 2019-02-03 16:27 | Discharge Summary ---
Date of Service February 03, 2019 Admission HPI Per Admitting Provider Norma Somers is a pleasant 73yo C female with history of HTN, HLP and DM, remote history of NHL s/p chemotherapy now in remission presenting with stroke- like symptoms. Patient reports that yesterday afternoon around 16:30 she noticed that her LUE and LLE felt "lumpy", tingly and slightly weak. She had difficulty walking due to weakness. She took a nap in the afternoon and when she woke up the symptoms were slightly improved. This AM she decided to come to the ER because her symptoms are still present. Overall she describes a tingling sensation in her left face, arm and leg as well as weakness of her arm and leg. She had difficulty washing her face this morning. She has a slight headache which started today in the ER. She denies disturbance in vision or speech. No additional complaints at this time. Her daughter reports that her Carvedilol was recently increased. She was also recently taken off her statin. ER Course: ASA 324mg Principal Diagnosis Acute ischemic CVA Discharge Exam Constitutional WD/WN, vitals as above + obese Eyes PERRL and EOM intact bilaterally ENMT external ear and nose normal, oropharynx normal Ears: no hearing impairment Neck trachea midline, no thyromegaly Thyroid: no thyroid mass and thyroid nontender Respiratory normal respiratory effort, lungs clear to auscultation Cardiovascular Rate/Rhythm: regular rate and regular rhythm Heart Sounds: no murmur Extremities: + edema (Left leg with trace pitting edema improved from previous, right leg no edema); no calf tenderness Gastrointestinal (Abdomen) normal bowel sounds, soft, nontender, no hepatosplenomegaly Musculoskeletal Extremities: no cyanosis and no clubbing Skin no rashes, warm and dry Neurologic CN's II-XI intact bilaterally and awake Motor/Sensory: no tremor Coordination: normal driiem-gn-lvng test, normal dgbx-ec-ynnm test and normal rapid alternating movements Psychiatric A+Ox3, euthymic affect Discharge Data Allergies Allergy/AdvReac Type Severity Reaction Status Date / Time adhesive AdvReac Mild Redness of Verified 01/30/19 11:32 Skin oxycodone AdvReac Unknown Hallucinati Verified 01/30/19 11:32 ons Consultations Neurology Cardiology Ordered Studies 01/30/19 10:09 CT head/brain wo con Stat 01/30/19 14:56 MR angio head wo con Routine MR angio neck wo/w con Routine MR brain wo/w con Routine 01/31/19 09:12 CT angio head w con Urgent 01/31/19 13:06 CT angio neck with con Urgent 01/31/19 13:07 US venous doppler LE BI Urgent 01/31/19 19:06 CT angio chest PE protocol Routine 01/31/19 19:07 CT abd pelvis oral and IV con Routine 02/02/19 11:31 MR brain wo con Urgent CXR Echocardiogram Hospital Course (1) Stroke: Patient with new left sided deficit with weakness and numbness on admission-much improved by time of discharge. Has history of HTN, HLP, DM and suspected old CVA per CT read. MRI brain confirmed right thalamic CVA and left frontal lobe CVA; there was concern for paradoxical embolus given DVT and PFO on ECHO although review of echocardiogram by cardiology shows only a few bubbles crossing over to the left side MRA head and neck with stenoses--> CTA head and neck show 50% stenosis of the proximal right common carotid artery as well as significant basilar artery atherosclerosis as well as bilateral REEL TENDER stenoses but no occlusions or aneurysms -continue ASA 81 and started Eliquis for DVT and possible paradoxical emboli -consult Cardio appreciated-no recommendation for closure of PFO at this time- determination for long-term anticoagulation will be considered but needs at least a minimum of 3 months given DVT -Started Lipitor 40mg po daily-watch for myalgias as has had previously, could add Co Q10 if needed -continue to hold Carvedilol and Valsartan/HCTZ to allow for permissive hy pertension-blood pressures acceptable at this time -Neurology consultation -appreciate assistance with this case, recommend follow- up with neurology within 1 month -on telemetry monitoring for atrial fibrillation and had none seen-->recommend possible cardiac event monitor after discharge likely for 1 month-defer to Cardiology in follow up appointment -with new onset dizziness, nausea and headache-obtained urgent repeat MRI of the brain without contrast to look for new stroke in the posterior circulation--> was negative for new stroke and negative for hemorrhage in old CVAs -stable for dc to home with home health (2) Acute DVT of left tibial vein: Had 1 week of left leg swelling and calf pain prior to admission. Found to have acute DVT left posterior tibial vein on Doppler Does have a h/o high risk colon polyps but had last colonoscopy in the fall and due for another one in a few months-on an annual screening program -is UTD on mammogram Not sedentary, no recent surgery or long trips, no personal or family history of VTE Would be considered an unprovoked DVT Discussed options for anticoagulation with the patient as well as her daughter at the bedside and risk and benefits. She has no history of significant bleeding in the past and is agreeable to starting anticoagulation. -Continue Eliquis 10mg po bid x 7 days and then 5mg po bid-today day #4 - CTA chest checked for PE given sharp pains under bilat ribs going on for 3-4 weeks-negative for PE -needs updated mammo as an outpatient -CT C/A/P to look for cause of chest pains, upper abd pains, not feeling well for 1-2 months overall, r/o malignancy--> negative for evidence of malignancy at this point -Needs updated colonoscopy as scheduled coming up (3) Chest pain: Located under the bilateral ribs and upper abdomen for 1 month intermittent -CTA chest for PE negative -Anticoagulating her as above for DVT and she is hemodynamically stable -most likely MSK in nature (4) Hypertension: Blood pressures acceptable -Continue holding Carvedilol and Diovan for now to allow for permissive hypertension -f/u as outpt with home RN -could restart Coreg first if needed in the next few weeks (5) Diabetes: Patient with DM with peripheral neuropathy. HgAIC here is uncontrolled at 9.1%, with hyperglycemia -managed with Lantus and Novolog SSI -can restart home metformin the day after discharge -continue home Lantus after discharge (6) Dyslipidemia: Chronic Lipids are quite elevated with total cholesterol 228, LDL 127, triglycerides in the 300s -Atorvastatin 40mg po daily was added -Can add CoQ10 if develops myalgias again like she did previously (7) GERD (gastroesophageal reflux disease): Chronic. Stable -Continue Protonix daily (8) Hypothyroid: Chronic. -TSH elevated at 10.5 -increased LT4 to 88mcg and recommend repeat TFTs in 4-6 weeks (9) Abnormal brain MRI: indeterminate lesion left caudate head-with h/o high risk polyps of colon, h/o NHL, question if could be met? -repeat brain MRI in 3 months -has repeat colonoscopy coming up soon, is due for annual mammogram (10) PFO (patent foramen ovale): As seen on echocardiogram as above Cardiology consulted as above -no need for closure (11) History of non-Hodgkin's lymphoma: Noted in history, in remission for many years (12) Chronic lower back pain: Improved-continue lidocaine patch (13) Dizziness: New in onset overnight on 02/01 Repeat MRI as above to rule out posterior circulation stroke, she does have significant basilar artery atherosclerosis-MRI negative for new CVA as above -seen again by Neuro and diagnosed with BPPV -resolved completely with giving meclizine -continue prn meclizine after discharge (14) Nausea: Secondary to dizziness as above-resolved prior to discharge (15) BPPV (benign paroxysmal positional vertigo): as above in "dizziness" (16) DVT prophylaxis: Eliquis as above for acute DVT Disposition-stable for dc to home PT/OT consults placed-PT recommending home with home health, OT recommending rehab but patient is declining rehab placement Total Time Total Time Spent Total Time Spent (In Minutes): >30 min Total Time Includes: Examination of the Patient, Discharge Planning and Medication Reconciliation Discharge Plan Discharge Items Patient Disposition: Home - Home Health Services Reason For Visit: STROKE LIKE SYMPTOMS Discharge Diagnosis: Acute CVA, Acute DVT Condition: Good Discharge Goals: Decrease discomfort, Diagnostic testing, Improve disease control, Improve function, Learn about illness and Therapeutic intervention Activity: As commented below Lifting: Gradually increase as tolerated Bathing: No limitations Exercise/Sports: Gradually increase as tolerated Exercise Comment: with assistance Driving/Machine Use Comment: No driving Non-emergency contact: Primary Care Provider, Fireproof Door Assembler and Neurologist Call non-emergency contact if: you have any medication questions, your symptoms worsen, your pain is not controlled, your pain is worsening, your pain is unusual for you, your pain is concerning for you and your temperature is above 100.5 Follow-up/Referrals: Myra Kaufman PA-C [Physician Credit Balance Specialist] - 03/23/19 3:15 pm (Please, follow up at [facility] Neurology Office with Myra Kaufman PA-C on March 23 at 3:15 pm. *The office is located at [address] [place] [address] in [place]. If you need to change this appointment, call the office at [phone].) Malachi Aleman DO [Physician] - 03/14/19 10:30 am (Please, follow up with Dr. Aleman on WednesdayMarch 14 at 10:30 am. If you have any questions, call the office at [phone].) Moe Kraft MD [Primary Care Provider] - 02/09/19 2:50 pm (Please, follow up with Dr. Hackett on February 09 at 2:50 pm. *If you need to change this appointment, call the office at [phone].) Johanne Jones PA-C [Outside Practitioners] - 02/22/19 2:00 pm (Please, follow up with Jacey Jones PA-C on WednesdayFebruary 22 at 2:00 pm for an appointment and to be fitted with a cardiac event monitor. *If you have any questions, call the office at [phone].) Diet: Carb Consistent or DM2 and Heart Healthy Addtl Provider Instructions: You were admitted with left sided weakness and numbness and were found to have strokes in your brain. You were also found to have a blood clot in your left leg. You were started on a blood thinner for the blood clot called Eliquis; this should be taken twice a day for at least 3 months. Your doctor can help you decide if you should remain on this after the initial 3 months. You also developed vertigo and this was treated with meclizine. Please do not restart your metformin until the evening of 02/04/19. Your blood pressure pills were STOPPED temporarily at least because we don't wa nt your blood pressure to drop too low after a recent stroke. If you notice your blood pressure is consistently higher than 160/90, please let your doctor know and he may restart your medication. You already took Lantus 30 units this morning--> for tonight, please only take 20 units of Lantus. Then, starting on 02/04/19, take your usual Lantus 50 units in the evening. Please follow up with your PCP as scheduled, Neurology, and Cardiology. Prescriptions: New Eliquis 5 mg Tablet 10 mg PO BID Qty: 60 RF: 0 atorvastatin 40 mg Tablet 40 mg PO QAM Qty: 30 RF: 0 meclizine 25 mg Tablet 25 mg PO Q6H PRN (Reason: dizziness) Qty: 15 RF: 0 levothyroxine [Synthroid] 88 mcg Tablet 88 mcg PO DAILYBB Qty: 30 RF: 0 Continued Lantus U-100 Insulin 100 unit/mL Solution 50 unit SUBCUT QPM RF: 0 aspirin [Aspir-81] 81 mg Tablet,Delayed Release (Dr/Ec) 81 mg PO QAM RF: 0 Novolog U-100 Insulin aspart 100 unit/mL Solution 12 unit SUBCUT TID RF: 0 metformin 1,000 mg Tablet 500 mg PO QPM RF: 0 omeprazole 20 mg Tablet,Delayed Release (Dr/Ec) 20 mg PO BID RF: 0 albuterol sulfate 90 mcg/actuation Hfa Aerosol Inhaler 2 puff INHALATION Q6H PRN (Reason: Wheezing) RF: 0 Discontinued carvedilol 6.25 mg tablet 6.25 mg PO BID RF: 0 carvedilol 3.125 mg tablet 3.125 mg PO BID RF: 0 levothyroxine 75 mcg tablet 75 mcg PO DAILY RF: 0 valsartan-hydrochlorothiazide 320-12.5 mg tablet 1 tab PO QAM RF: 0 Stand-Alone Forms: Medications to Prevent Stroke, [facility] Discharge Orders: Discharge Order (Routine); Ordered 02/03/19 Ordered By: Tracey Vincent Admission Data Admit Date/Time: 01/30/19 13:40 Attending Provider: Tracey Vincent Admit Provider: Gisel Ko Primary Care Provider: Moe Kraft Other Providers: Gisel Ko ; Shabbir Barclay ; Santi Moses III ; Bhumi Porter ; Myra Kaufman ; Jez Torres ; Malachi Aleman Service: Telemetry Other Interventions: Discharge Summary Assessment (RN) Last Done: 02/03/19 16:48 Pending Studies at Discharge: No DC Date/Time DO NOT enter until pt leaves facility: 02/03/19 18:14
--- NOTE | 2019-02-04 13:20 | Pharmacy Report ---
Pharmacist Stroke Counseling - Date of Service February 04, 2019 - Scope: Pharmacy has been consulted to provide medication discharge counseling for this patient admitted with [ischemic stroke] [hemorrhagic stroke] [transient ischemic attack] as per the Pharmacist Discharge Counseling for Stroke Patients Protocol . - Medications on Discharge: Home Medications Medication Instructions Recorded Confirmed Lantus U-100 Insulin 50 unit SUBCUT QPM 05/18/18 01/30/19 Novolog U-100 Insulin aspart 12 unit SUBCUT TID 05/18/18 01/30/19 albuterol sulfate 2 puff INHALATION Q6H PRN 05/18/18 01/30/19 aspirin [Aspir-81] 81 mg PO QAM 05/18/18 01/30/19 metformin 500 mg PO QPM 05/18/18 01/30/19 omeprazole 20 mg PO BID 05/18/18 01/30/19 New Rx's Medication Instructions Recorded apixaban [Eliquis] 10 mg PO BID #60 tab 02/03/19 atorvastatin 40 mg PO QAM #30 tab 02/03/19 levothyroxine [Synthroid] 88 mcg PO DAILYBB #30 tab 02/03/19 meclizine 25 mg PO Q6H PRN #15 tab 02/03/19 - Action: The above medications, specifically ones for stroke treatment/prophylaxis, have been reviewed in detail with the patient and/or patient public utilities sales representative(s) prior to discharge. This includes indication, common adverse reactions, drug interactions, and medication administration. Medication counseling has been employed using the teach-back method to ensure understanding. - Outcome: The patient and/or patient public utilities sales representative(s) have demonstrated understanding of the medications. Please note, they are aware that the pharmacist will call them within 72 hours post-discharge to confirm that the appropriate medications are being taken and answer any further medication related questions the patient might have at that time. Contact information Individual to be contacted:patient Relationship to patient (if applicable):n/a Phone number: [phone] Best time to call: home Additional comments: Patient admitted with right CVA, DVT. Reviewed all new medications with the patient. Talked in depth about importance of eliquis and not missing doses. Patient provided instructions in discharge packet for dosing of eliquis and when to transition from 10 mg BID dosing to 5 mg BID dosing. Talked about monitoring for increase in bruising/bleeding with this medication. Reviewed all medications that were discontinued on discharge, including ones for blood pressure. She states that she has a blood pressure cuff at home that she uses to keep track of her blood pressure that she will still use. No other pertinent positives on interview, no concerns. Patient aware we will follow up with her in a couple days. Thank you for allowing pharmacy to be involved in the care of this patient. Please call [phone] or [phone] with any additional questions
--- NOTE | 2019-02-07 13:30 | Pharmacy Report ---
Pharmacist Post D/C Phone Note - Phone Note: Date of phone call: February 07, 2019. Individual with whom pharmacist spoke to: JEANINE Davin ESQUIVEL The following questions were reviewed during the phone call with responses listed below each: Can you tell me the medications that you are currently taking as well as when and how you take each medication? -See Table Below When have you missed any doses of your medications? - none What side effects are you having from your medications, specifically, the new medications you were started on? - none What questions do you have about your medications? - none What problems are you having obtaining your medications? - none When is your next appointment with your primary care doctor? - or Wednesday Additional comments: - Pt c/o fatigue. i stressed that synthroid may take ~5 weeks to achieve Css, this will help to resolve her fatigue. Pt understands that she is to take 5mg twice daily today of her eliquis As per the Pharmacist Discharge Counseling for Stroke Patients Protocol, this phone call has been completed within 72 hours of discharge. Thank you for allowing us to be involved in the care of this patient. Thank you for allowing us to be involved in the care of this patient. - Home Medications: Home Medications Medication Instructions Recorded Confirmed Lantus U-100 Insulin 50 unit SUBCUT QPM 05/18/18 01/30/19 Novolog U-100 Insulin aspart 12 unit SUBCUT TID 05/18/18 01/30/19 albuterol sulfate 2 puff INHALATION Q6H PRN 05/18/18 01/30/19 aspirin [Aspir-81] 81 mg PO QAM 05/18/18 01/30/19 metformin 500 mg PO QPM 05/18/18 01/30/19 omeprazole 20 mg PO BID 05/18/18 01/30/19 New Rx's Medication Instructions Recorded apixaban [Eliquis] 10 mg PO BID #60 tab 02/03/19 atorvastatin 40 mg PO QAM #30 tab 02/03/19 levothyroxine [Synthroid] 88 mcg PO DAILYBB #30 tab 02/03/19 meclizine 25 mg PO Q6H PRN #15 tab 02/03/19
== END 2019-02-03 18:14 | disposition home health service (06) | DRG 65 ==
LOC: ED 09:39 → SUATTDRO 13:40 → 2S 13:40

== ENCOUNTER 2020-08-07 11:41 | Inpatient (IN) ==
--- NOTE | 2020-07-22 16:17 | PAT Medication Instructions ---
Medication Instructions Date of Service July 22, 2020 Home Medications Medication Instructions Recorded atorvastatin 40 mg PO QAM #30 tab 02/03/19 meclizine 25 mg PO Q6H PRN #15 tab 02/03/19 Lantus U-100 Insulin 55 unit SUBCUT BID albuterol sulfate 2 puff INHALATION Q6H PRN atorvastatin 40 mg PO QAM meclizine 25 mg PO Q6H PRN Eliquis 5 mg PO BID famotidine 40 mg PO QAM insulin lispro [Humalog KwikPen Insulin] 14 unit SUBCUT AC metformin [Glucophage XR] 500 mg PO QPM levothyroxine [Synthroid] 88 mcg PO QAM bupropion HCl 100 mg PO HS duloxetine 30 mg PO HS hydralazine 50 mg PO TID hydrochlorothiazide 25 mg PO QAM vit C,O-Fb-ylhpe-lutein-zeaxan [PreserVision AREDS-2] 1 tab PO QAM ASK your prescriber and surgeon Eliquis 5 mg PO BID STOP taking 2 weeks before surgery vit C,P-Rt-oufgo-lutein-zeaxan [PreserVision AREDS-2] 1 tab PO QAM DO NOT take the morning of surgery hydrochlorothiazide 25 mg PO QAM insulin lispro [Humalog KwikPen Insulin] 14 unit SUBCUT AC Take morning of surgery With a small sip of water, OTHERWISE NOTHING TO EAT OR DRINK AFTER MIDNIGHT: hydralazine 50 mg PO TID levothyroxine [Synthroid] 88 mcg PO QAM famotidine 40 mg PO QAM atorvastatin 40 mg PO QAM meclizine 25 mg PO Q6H PRN (if needed) Take evening before surgery Lantus U-100 Insulin 55 unit SUBCUT BID albuterol sulfate 2 puff INHALATION Q6H PRN (if needed) meclizine 25 mg PO Q6H PRN Eliquis 5 mg PO BID insulin lispro [Humalog KwikPen Insulin] 14 unit SUBCUT AC metformin [Glucophage XR] 500 mg PO QPM bupropion HCl 100 mg PO HS duloxetine 30 mg PO HS hydralazine 50 mg PO TID Insulin Dependent Diabetic Patients * Test your blood sugar the morning of surgery * If Blood Sugar is GREATER THAN 150, take HALF of your regular dose of: Lantus U-100 Insulin (27 units) * If Blood Sugar is LESS THAN 150, DO NOT TAKE ANY: Lantus U-100 Insulin Other Notes If you have any questions please call us at [phone] or [phone] or [phone] or [phone]
--- NOTE | 2020-07-24 14:25 | Anesthesiology Consultation ---
Date of Service July 24, 2020 Assessment & Plan (1) Encounter for pre-operative examination: COVID Status: As of 07/24 assessment, patient denies travel to endemic area, known exposure/sick contacts, or symptoms of COVID19. Patient instructed that they and their household members must follow strict social distancing guidelines, wear a mask in public and avoid travel/events/gatherings for 14 days prior to surgery. Preoperative COVID19 testing to be completed prior to surgery per surgeon's arrangements. Patient made aware to self-isolate as much as possible between COVID testing and surgery. PCP Clearance 07/24/20 = "Appears to have good cardiac capacity with METs at about 4 - but has trouble walking due to CVA. For a possible intermediate pr ocedure, will do stress test*, labs and EKG as ordered. And will do CXR - h/o asthma/YOSI/lymphoma. Will see Dr. Epperson." *PAT school attendance secretary spoke to cardiology office, who stated they are doing TTE, NOT stress test. Awaiting results/cardio clearance and final PCP clearance. Chart Review Chart Review: Acceptable Risk for Surgery (pending echo, pcp and cardio clearances) and Patient seen in Pre Admission Testing Teaching & Discussion Instructed NPO after midnight before surgery, except medications with 15 cc of water. Medication instructions provided according to the PAT guidelines. History Surgery Operation Date: 08/06/20 12:35 Proposed Procedures p L5-S1 Decompression and Fusion, Spinal Cord Monitoring - Ender Parish, DO Height/Weight Height: 5 ft 6.5 in Weight: 109.3 kg Allergies Allergy/AdvReac Type Severity Reaction Status Date / Time oxycodone AdvReac Intermediate Hallucinati Verified 07/15/20 12:14 ons adhesive AdvReac Mild Redness of Verified 07/15/20 12:14 Skin Percocet TABS Allergy Intermediate Hallucinati Uncoded 07/15/20 12:14 ng Prinivil TABS Allergy Intermediate Dizziness Uncoded 07/15/20 12:14 Zithromax Z-Elliott TABS Allergy Intermediate SICK TO Uncoded 07/15/20 12:14 STOMACH Medications Home Medications Medication Instructions Recorded Confirmed Last Taken Lantus U-100 Insulin 55 unit SUBCUT BID 05/18/18 07/15/20 05/10/19 albuterol sulfate 2 puff INHALATION Q6H PRN 05/18/18 07/15/20 05/10/19 atorvastatin 40 mg PO QAM #30 tab 02/03/19 07/15/20 05/10/19 meclizine 25 mg PO Q6H PRN #15 tab 02/03/19 07/15/20 Unknown Eliquis 5 mg PO BID 03/24/19 07/15/20 05/10/19 insulin lispro [Humalog KwikPen 14 unit SUBCUT AC 03/24/19 07/15/20 05/10/19 Insulin] levothyroxine [Synthroid] 88 mcg PO QAM 04/24/19 07/15/20 05/10/19 bupropion HCl 100 mg PO HS 07/15/20 07/15/20 Unknown duloxetine 30 mg PO HS 07/15/20 07/15/20 Unknown hydralazine 50 mg PO TID 07/15/20 07/15/20 Unknown hydrochlorothiazide 25 mg PO QAM 07/15/20 07/15/20 Unknown vit C,K-An-vxcsh-lutein-zeaxan 1 tab PO QAM 07/15/20 07/15/20 Unknown [PreserVision AREDS-2] lidocaine HCl applic 07/24/20 Unknown metoprolol succinate PO 07/24/20 Unknown omeprazole 07/24/20 Unknown Past Medical History Medical History Cardiac murmur FOLLOWS WITH DR. 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 Poor historian Seasonal allergies REASON FOR INHALER Sleep apnea CPAP DEVICE, USING FOR ~5 HRS PER NIGHT Stroke NOVEMBER 2018- ON ELIQUIS- CAME TO [facility] Exercise / Class Metabolic Activity III < 4 Walking/Shop/Light housework (Denies CP or SOB with ambulation on one level, has a few steps into the house) Past Family History Family History Family/Other Family history of diabetes mellitus Mother Cancer Father Myocardial infarction Aunt Family history of diabetes mellitus Past Surgical History Surgical History H/O cervical spine surgery HARDWARE IN PLACE History of appendectomy History of arthroscopy R/L KNEE History of cardiac cath 01/2017 AFTER ABNORMAL NUCLEAR STRESS. CATH SHOWED NO EVIDENCE OF CAD. History of colonoscopy History of dilatation and curettage History of hysterectomy VENTURA BSO History of tonsillectomy History of tooth extraction Slow to wake up after anesthesia AND PONV Status post breast reduction BILAT Past Anesthesia History No Hx of Anesthesia Complications (other than PONV) and No Family Hx of Anesthesia Complications "slow to wake" but no reintubation or ICU/unanticipated admission History of PONV No Hx of Motion Sickness and History of PONV Social History Smoking Status: Former smoker tobacco type: cigarettes Do You Dip or Chew Tobacco: No Smoking End Date: 30 YEARS AGO Hx Alcohol Use: Yes Alcohol type: beer alcohol intake frequency: a few times a month Hx Substance Use: No substance use type: does not use Review of Systems Pt denies any recent chest pain, shortness of breath, palpitations, cough, fever, URI, or uncontrolled acid reflux. +toe pain +allergies (runny nose/eyes) Physical Exam Vital Signs BP: 110/65 P: 69bpm SPO2: 92% RA T: 98.5 F R: 20 Constitutional + obese ENMT Mouth: + dentures, + edentulous and + macroglossia Thyromental Distance: > or= 3.5 Finger Breadths Mallampati Class: II Neck + short neck; neck extension not limited Respiratory normal respiratory effort, lungs clear to auscultation Auscultation: + diminished lung sounds Cardiovascular Rate/Rhythm: regular rate and regular rhythm Heart Sounds: + murmur (II/ systolic) Extremities: no edema Testing Laboratory Results 07/24/20 14:45 07/24/20 14:45 PT 10.4 Seconds (9.0-12.0) 07/24/20 14:45 INR 1.0 (0.9-1.1) 07/24/20 14:45 APTT 29.0 Seconds (21.0-31.0) 07/24/20 14:45 Hemoglobin A1c 9.5 % (4.5-5.6) H 07/24/20 14:45 Urine Color Dark Yellow 07/24/20 Unknown Urine Appearance Cloudy (Clear) A 07/24/20 Unknown Urine pH 5.5 (4.5-7.5) 07/24/20 Unknown Ur Specific [place] 1.020 (1.000-1.030) 07/24/20 Unknown Urine Protein Negative (Negative) 07/24/20 Unknown Urine Glucose (UA) Negative (Negative) 07/24/20 Unknown Urine Ketones Trace (Negative) H 07/24/20 Unknown Urine Nitrite Negative (Negative) 07/24/20 Unknown Ur Leukocyte Esterase Negative (Negative) 07/24/20 Unknown Urine WBC (Auto) 5-10 /hpf (0-5) H 07/24/20 Unknown Urine RBC (Auto) 0-4 /hpf (0-4) 07/24/20 Unknown U Hyaline Cast (Auto) 1-5 /lpf (0-5) 07/24/20 Unknown U Epithel Cells (Auto) >30 /lpf (0-5) H 07/24/20 Unknown Urine Bacteria (Auto) 2+ (Negative) H 07/24/20 Unknown Blood Type A Positive 07/24/20 14:45 Antibody Screen NEGATIVE 07/24/20 14:45 07/24/20 Unknown Urine Culture - Final Urine,Clean Catch More than three types of organisms present, all high cou nts mixed probable skin mireya - No further identifications or sensitivities to follow. *Surgeon's office flagged regarding positive urine bacteria and elevated glucose. Electrocardiogram Date: 07/24/20 Findings: + NSR @ (61bpm) LBBB. Chest X-Ray Date: 07/24/20 Findings: + NAD and + cardiomegaly Echocardiogram Date: 01/31/19 EF: 50-55% Limited views were obtained. Image quality was suboptimal. LV systolic function is low normal. A PFO is suspected.
[2020-07-24 15:46] LABS: Basophils # (auto) 0.02 K/uL (0-0.2); Basophils % (auto) 0.3 %; Eosinophils # (auto) 0.34 K/uL (0-0.5); Eosinophils % (auto) 4.7 %; Hematocrit (blood only) 40.1 % (37-47); Hemoglobin 12.6 g/dL (12.0-16.0); Immature Granulocytes # (auto) 0.02 K/uL (0.00-0.02); Immature Granulocytes % (auto) 0.3 %; Lymphocytes # (auto) 2.05 K/uL (1.2-3.4); Lymphocytes % (auto) 28.1 %; Mean Corpuscular Hemoglobin 27.8 pg (25-34); Mean Corpuscular Hgb Conc 31.4 g/dL (32-36); Mean Corpuscular Volume 88.5 fL (80-100); Mean Platelet Volume 11.3 fL (7.4-10.4); Monocytes # (auto) 0.69 K/uL (0.11-0.59); Monocytes % (auto) 9.5 %; Neutrophils # (auto) 4.17 K/uL (1.4-6.5); Neutrophils % (auto) 57.1 %; Platelet Count 275 K/uL (130-400); RDW Coefficient of Variation 14.6 % (11.5-14.5); RDW Standard Deviation 47.3 fL (36.4-46.3); Red Blood Count 4.53 M/uL (4.2-5.4); White Blood Count 7.29 K/uL (4.8-10.8)
[2020-07-24 15:49] LABS: Appearance Urine Cloudy (Clear); Bacteria Urine Automated 2+ (Negative); Bilirubin Urine Negative (Negative); Blood Urine Negative (Negative); Color Urine Dark Yellow; Epithelial Cell Urine Auto >30 /lpf (0-5); Glucose Urine UA Negative (Negative); Ketones Urine Trace (Negative); Leukocyte Esterase Urine Negative (Negative); Nitrite Urine Negative (Negative); Protein Urine Negative (Negative); Urobilinogen Urine Negative (Negative); pH Urine 5.5 (4.5-7.5)
[2020-07-24 16:02] LABS: Prothrombin Time 10.4 Seconds (9.0-12.0)
[2020-07-24 16:15] LABS: RBC Urine Automated 0-4 /hpf (0-4)
[2020-07-24 16:25] LABS: BUN Creatinine Ratio 21.6 (10-20); Calcium 8.6 mg/dl (8.5-10.1); Est GFR (African American) 54.1; Est GFR (Non-African American) 46.7; Potassium 4.3 mmol/L (3.5-5.1)
[2020-07-25 05:35] LABS: Estimated Average Glucose 226 mg/dl; Hemoglobin A1C 9.5 % (4.5-5.6)
[~2020-08-07 11:41] MED LIST changes: +ACETAMINOPHEN 500 MG TAB PO SCH; -AMLO2.5T PO; -ASPCH81X PO; +CeleBREX 200 MG CAP PO SCH; +GABAPENTIN 300 MG CAP PO SCH; -INSDGI SC; -INSU100I SC; -LEVO75TA5 PO; +LR 15ML/HR IV SCH; -METO-217 PO; -PRAV40TA PO; -PRLSR20 PO; -VALS320T PO; +ceFAZolin 2000MG 2,000 MG/15 ML SYR IV SCH
--- NOTE | 2020-08-07 13:21 | History & Physical Bridge Note ---
Date of Service August 07, 2020 History & Physical Bridge Note I have examined the patient, reviewed the History & Physical and in the interval since the performance of the History & Physical I have noted the following changes of clinical significance: no changes noted
--- NOTE | 2020-08-07 13:22 | History & Physical Report ---
Date of Service August 07, 2020 Assessment & Plan (1) Neurogenic claudication due to lumbar spinal stenosis: Admission and Anticipated Discharge Date Admission Date: L5-S1 decompression fusion History of Present Illness Chief Complaint: Back and leg pain Primary Care Provider: Moe Kraft MD This is a 74-year-old female presents with chronic persistent back and leg pain. Failing course of nonoperative care is here for surgical invention. Allergies Allergy/AdvReac Type Severity Reaction Status Date / Time oxycodone AdvReac Intermediate Hallucinati Verified 08/07/20 12:17 ons adhesive AdvReac Mild Redness of Verified 08/07/20 12:17 Skin Percocet TABS Allergy Intermediate Hallucinati Uncoded 08/07/20 12:17 ng Prinivil TABS Allergy Intermediate Dizziness Uncoded 08/07/20 12:17 Zithromax Z-Elliott TABS Allergy Intermediate SICK TO Uncoded 08/07/20 12:17 STOMACH Home Medications Medication Instructions Recorded Confirmed Type Lantus U-100 Insulin 55 unit SUBCUT BID 05/18/18 08/07/20 History albuterol sulfate 2 puff INHALATION Q6H PRN 05/18/18 08/07/20 History atorvastatin 40 mg PO QAM #30 tab 02/03/19 08/07/20 Rx meclizine 25 mg PO Q6H PRN #15 tab 02/03/19 08/07/20 Rx Eliquis 5 mg PO BID 03/24/19 08/07/20 History insulin lispro [Humalog KwikPen 14 unit SUBCUT AC 03/24/19 08/07/20 History Insulin] levothyroxine [Synthroid] 88 mcg PO QAM 04/24/19 08/07/20 History bupropion HCl 100 mg PO HS 07/15/20 08/07/20 History duloxetine 30 mg PO HS 07/15/20 08/07/20 History hydralazine 50 mg PO TID 07/15/20 08/07/20 History hydrochlorothiazide 25 mg PO QAM 07/15/20 08/07/20 History vit C,D-Vy-tzton-lutein-zeaxan 1 tab PO QAM 07/15/20 08/07/20 History [PreserVision AREDS-2] lidocaine HCl applic 07/24/20 History metoprolol succinate PO 07/24/20 History omeprazole 07/24/20 History Past Med/Surg History Medical History Cardiac murmur FOLLOWS WITH DR. 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 Poor historian Seasonal allergies REASON FOR INHALER Sleep apnea CPAP DEVICE, USING FOR ~5 HRS PER NIGHT Stroke NOVEMBER 2018- ON ELIQUIS- CAME TO [facility] Surgical History H/O cervical spine surgery HARDWARE IN PLACE History of appendectomy History of arthroscopy R/L KNEE History of cardiac cath 01/2017 AFTER ABNORMAL NUCLEAR STRESS. CATH SHOWED NO EVIDENCE OF CAD. History of colonoscopy History of dilatation and curettage History of hysterectomy VENTURA BSO History of tonsillectomy History of tooth extraction Slow to wake up after anesthesia AND PONV Status post breast reduction BILAT Family History Family/Other Family history of diabetes mellitus Mother Cancer Father Myocardial infarction Aunt Family history of diabetes mellitus Social History Smoking Status: Former smoker Smoking End Date: 30 YEARS AGO; Second Hand Exposure: No; Do You Dip or Chew Tobacco: No; Tobacco Cessation Education Requested by Patient: No Hx Alcohol Use: Yes Alcohol type: beer Hx Substance Use: No Preferred Language: Bulgarian Communication Ability: Effective Contact Center Consultant Required: No Beliefs That Will Affect Care: None marital status: / Current Living Situation: Alone current occupational status: retired Feels Safe at Home: Yes Safety Concerns: Feels Safe At This Time Assistive Devices: Cane and Glasses Physical Exam Physical Exam: Patient is alert and oriented Heart regular in rhythm Lungs clear to auscultation Results & Data ([facility]) Vital Signs (Past 12 Hours) Vital Signs Temp Pulse Resp BP Pulse Ox 08/07/20 12:25 36.8 C 72 16 191/75 H 93
[2020-08-07] MEDS ORDERED: BUPIVACAINE/EPINEPHRINE 0.5% MPF 1:200,000 30 ML VIAL ONE (13:33)
[2020-08-07] MEDS ORDERED: BACITRACIN INJ 50,000 UNIT VIAL ONE (13:33)
[2020-08-07] MEDS ORDERED: ONDANSETRON INJ 2 MG/ML 2 ML VIAL ONE (13:34)
[2020-08-07] MEDS ORDERED: PROPOFOL IV EMULSION 10 MG/ML 20 ML VIAL IV ONE (13:34)
[2020-08-07] MEDS ORDERED: GLYCOPYRROLATE 0.2 MG/ML VIAL ONE (13:34)
[2020-08-07] MEDS ORDERED: ROCURONIUM BROMIDE 10 MG/ML 5 ML VIAL IV ONE (13:34)
[2020-08-07] MEDS ORDERED: SUCCINYLCHOLINE 100MG/5ML SYR IV ONE (13:34)
[2020-08-07] MEDS ORDERED: DEXAMETHASONE SOD INJ 4 MG/ML VIAL ONE (13:34)
[2020-08-07] MEDS ORDERED: fentaNYL citrate 100 MCG/2 ML VIAL ONE ×2 (13:34→15:04)
[2020-08-07] MEDS ORDERED: NEOSTIGMINE METHYLSULFATE 1 MG/ML 10ML VIAL ONE (13:34)
[2020-08-07] MEDS ORDERED: LIDOCAINE HCL 2% 2 ML VIAL/AMP(20MG/ML) INFIL ONE (13:34)
[2020-08-07] MEDS ORDERED: LARYING-O-JET KIT (LTA) ONE (13:34)
[2020-08-07] MEDS ORDERED: ONDANSETRON INJ 2 MG/ML 2 ML VIAL IV PRN ×2 (13:47→17:23)
[2020-08-07] MEDS ORDERED: PROMETHAZINE HCL 6.25 MG in SODIUM CHLORIDE 0.9% 50 ML IV PRN (13:47)
[2020-08-07] MEDS ORDERED: ATROPINE SULFATE 0.1 MG/ML 10ML SYR IV PRN (13:47)
[2020-08-07] MEDS ORDERED: ePHEDrine sulfate 50 MG/ML AMP IV PRN (13:47)
[2020-08-07] MEDS ORDERED: FLOSEAL HEMOSTATIC MATRIX 10ML TOP ONE (15:11)
--- NOTE | 2020-08-07 15:34 | Fluoroscopy Report ---
FL lumbar spine 2-3V CLINICAL HISTORY: L5-S1 DECOMPRESSION/FUSION/INTERBODY COMPARISON STUDY: None. FLUOROSCOPY TIME: 23 seconds. FINDINGS: 2 fluoroscopic spot images of the lumbar spine demonstrate posterior decompression fusion a t L5-S1 with pedicle screws and rods. Hardware appears intact. IMPRESSION: Fluoroscopy provided for L5-S1 posterior decompression and fusion ACT 112: Negative or not required by law. Electronically signed by: Bradley Devine M.D. 08/07/2020 3:33 PM
--- NOTE | 2020-08-07 15:35 | Operative Report ---
Post Operative Report Pre & Post Diagnosis Operation Date: 08/07/20 13:15 Pre-Op Diagnosis: Spinal Stenosis, Lumbar Region with Neurogenic Claudication Spondylolisthesis L5-S1 Post-Op Diagnosis: Same I identified the patient and participated in the time-out.: Yes Procedure Operation Date: 08/07/20 13:15 Actual Procedures #1 lumbar decompression with bilateral medial facetectomies and foraminotomies L4-5 L5-S1. #2 posterior spinal fusion L5-S1. #3 placement posterior instrumentation 5 S1. #4 interbody L5-S1. #5 placement peek cage 9 x 22 mm at L5-S1. #6 placement locally harvested morselized autograft in the posterior lateral gutters. #7 placement infuse collagen sponge, and master graft in the posterior lateral gutters and ostial amp interbody space. Surgeon Ender Parish, DO School Bus Attendant Andrea Rueda Estimated Blood Loss 100 Findings See Below Patient is 5 foot 5 inches tall weighing over 109 kg with a BMI in excess of 40. Specimens None Indications This is a 74-year-old female who presents with above-mentioned diagnosis after failing course of nonoperative care is here for surgical invention. Description of Procedure Patient was met with identified informed consent obtained. Patient was then taken to the operative suite underwent an patient placed in prone position on Jorge table.Dontrell frame. All bony prominences well-padded eyes inspected to ensure no external pressure placed upon the. This point the lumbar spine was prepped and draped in a sterile fashion. Sharp dissection with the assistance of Bovie cautery was performed down to and exposing the lamina and transverse processes of L5 and sacral ala bilaterally. From caudal cephalad fashion complete laminectomy L5 partial laminectomy L4 was performed including bilateral medial facetectomies and foraminotomies addressing severe spinal stenosis. Pedicle screws were then placed in L5 and S1 levels bilaterally with assistance of fluoroscopy the proper sized colleen placed. By way of transfer and approach and left complete discectomy was performed endplates curetted to subcortical bleeding bone and a 9 x 22 mm peek cage filled osteobone graft tapped position. The rods were then locked in final position bilaterally. The transverse processes of L5 and the sacral ala burred to subcortical bleeding bone. Infuse collagen sponge master graft local autograft was placed in posterior gutters. 15 round CATY drain inserted. The incision was then closed with 1 Vicryl the fascia 2-0 Vicryl subcutaneously and 4 Monocryl for final skin closure. Steri- Strip sterile dressings placed. Patient will continue PACU stable condition. Please note spinal cord monitoring was utilized that the procedure no changes noted. Lastly Andrea gibson was present at the entire procedure involved in patient positioning complex portions of the surgery and final skin closure. I attest to the content of the Intraoperative Record and any orders documented therein. Any exceptions are noted below.
[2020-08-07] MEDS ORDERED: SUGAMMADEX SODIUM 200 MG/2 ML VIAL IV ONE (15:58)
[2020-08-07] MEDS ORDERED: METOPROLOL TARTRATE 1 MG/ML VIAL IV ONE (16:17)
[2020-08-07] MEDS: fentaNYL citrate 100 MCG/2 ML VIAL IV PRN ×2 (16:31→16:40)
--- NOTE | 2020-08-07 16:51 | Anesthesiology Progress Note ---
Date of Service August 07, 2020 Anesthesia Post Procedure Vital Signs Vital Signs: Temp Pulse Pulse Resp BP BP Pulse Ox 08/07/20 16:40 66 14 151/62 H 93 08/07/20 16:30 66 19 153/64 H 94 08/07/20 16:20 74 21 155/96 H 93 08/07/20 16:11 36.3 C L 78 12 183/73 H 93 08/07/20 12:25 36.8 C 72 16 191/75 H 93 Pain Intensity Bilateral Back: Pain Intensity: 3 Transfer of Care Handoff Completed per policy Notes Mental Status: alert / awake / arousable Patient Amnestic to Procedure: Yes Nausea / Vomiting: adequately controlled Pain: adequately controlled Airway Patency, RR, SpO2: stable & adequate BP & HR: stable & adequate Hydration State: stable & adequate Anesthetic Complications: no major complications apparent Notes: residual muscle weakness noted on emergence. 2mg suggamadex given 5 minutes prior to extubation with significant improvement of gas exchange and motor strength. uncomplicated pacu course and discharge to med-surgical floor.
[2020-08-07] MEDS ORDERED: SOD PHOSPHATE/SOD BIPHOSPHATE ENEMA 132 ML BTL PR PRN (17:23)
[2020-08-07] MEDS ORDERED: ALUMINUM/MAGNESIUM SUSP 30 ML UDC PO PRN (17:23)
[2020-08-07] MEDS ORDERED: LORazepam 0.5 MG TAB PO PRN (17:23)
[2020-08-07] MEDS ORDERED: hydrOXYzine HCl 25 MG TAB PO PRN (17:23)
[2020-08-07] MEDS ORDERED: METOCLOPRAMIDE HCL INJ 5 MG/ML 2 ML VIAL IV PRN (17:23)
[2020-08-07] MEDS ORDERED: HYDROmorphone INJ 0.5 MG/0.5 ML SYR IV PRN (17:23)
[2020-08-07] MEDS ORDERED: DO NOT ADMINISTER FLU VACCINE PRN (17:23)
[2020-08-07] MEDS ORDERED: ACETAMINOPHEN 500 MG TAB PO PRN (17:23)
[2020-08-07] MEDS ORDERED: HYDROmorphone INJ 1 MG/ML SYRINGE IV PRN (17:23)
[2020-08-07] MEDS ORDERED: ACETAMINOPHEN 1,000 MG/100 ML VIAL IV PRN (17:23)
[2020-08-07] MEDS ORDERED: FAMOTIDINE 20 MG TAB PO PRN (17:23)
[2020-08-07] MEDS ORDERED: traMADol HCL 50 MG TABLET PO PRN (17:23)
[2020-08-07] MEDS ORDERED: MAGNESIUM HYDROXIDE SUSP 30 ML UDC PO PRN (17:23)
[2020-08-07] MEDS ORDERED: ONDANSETRON 4 MG OD TAB PO PRN (17:23)
[2020-08-07] MEDS ORDERED: ALBUTEROL HFA 8 GM INHALER INH PRN (17:23)
[2020-08-07] MEDS ORDERED: bisacodyL 10 MG SUPP PR PRN (17:23)
[2020-08-07] MEDS ORDERED: diphenhydrAMINE Capsule 25 MG CAP PO PRN (17:23)
[2020-08-07] MEDS ORDERED: LORazepam 0.5 MG/1 ML VIAL IV PRN (17:23)
[2020-08-07] MEDS ORDERED: PROMETHAZINE HCL 12.5 MG in SODIUM CHLORIDE 0.9% 50 ML IV PRN (17:23)
[2020-08-07] MEDS ORDERED: DO NOT ADMINISTER PNEUMOCOCCAL VACCINE PRN (17:23)
[2020-08-07] MEDS ORDERED: NALOXONE HCL 0.4 MG/1 ML VIAL/CARP IV PRN (17:23)
[2020-08-07] MEDS ORDERED: PHARMACY GLYCEMIC MGMT CONSULT PRN (17:38)
[2020-08-07] MEDS ORDERED: MECLIZINE HCL 25 MG TAB PO PRN (17:54)
[2020-08-07] MEDS: SODIUM CHLORIDE 0.9% 1000ML 1,000 ML IV SCH (18:07)
[2020-08-07] MEDS: Scopolamine CHECK PATCH PLACEMENT SCH ×2 (18:08→23:40)
[2020-08-07] MEDS ORDERED: GLUCAGON FOR INJ 1 MG VIAL SQ PRN (18:45)
[2020-08-07] MEDS ORDERED: DEXTROSE 50% 50 ML SYRINGE IV PRN (18:45)
[2020-08-07] MEDS ORDERED: GLUCOSE 40% GEL 15 GM TUBE PO PRN (18:45)
[2020-08-07] MEDS ORDERED: GLUCOSE 10 TABS/TUBE PO PRN (18:45)
[2020-08-07] MEDS: INSULIN ASPART 100 UNITS/ML 3 ML PEN SC SCH ×3 (19:10→23:39)
--- NOTE | 2020-08-07 19:44 | Pharmacy Report ---
Pharmacy Glycemic Short Note 2 - Date of Service August 07, 2020 - Glycemic Short BSG Results (Last 24 hours): 08/07/20 08/07/20 08/07/20 13:01 16:13 17:36 POC Glucose 150 H 156 H 166 H OUTPATIENT ANTIDIABETIC REGIMEN: * Lantus 55 units SQ BID * Lispro 14 units SQ AC * A1c = 9.5% ASSESSMENT: * Norma is a 74 yo female s/p lumbar surgery * She is maintained on significant doses of insulin at home (~152 units/day). It appears that last dose of basal insulin was taken 08/06 PM. * Dexamethasone 12 mg IV was removed from the omnicell during patients procedure (unsure if given - no documentation). * I will utilize tight Novolog parameters post operatively (carb ratio of 4 based on home insulin usage). * Continue home dose of Lantus and add one time dose of NPH (0.4 units/kg based on AdjBW). PLAN FOR INPATIENT GLYCEMIC CONTROL: * Basal insulin * Lantus 55 units SQ tonight - reassess in AM * NPH 32 units SQ x 1 * Bolus insulin * NovoLog per scale ACHS or Q6hrs while NPO * Goal Range: Low 110 mg/dL - High 140 mg/dL * Correction Factor: 15 mg/dL/unit * Nutritional / Prandial insulin per carb ratio of 1 unit per 4 grams CHO consumed * Add overnight checks with coverage for POD #0 PLAN FOR DISCHARGE: *
[2020-08-07] MEDS: hydrALAZINE TAB 50 MG TAB PO SCH (21:34)
[2020-08-07] MEDS: buPROPion HCl 100 MG TABLET PO SCH (21:35)
[2020-08-07] MEDS: DOCUSATE SODIUM/SENNA 50/8.6MG TAB PO SCH (21:35)
[2020-08-07] MEDS: DULoxetine HCL 30 MG CAP PO SCH (21:35)
[2020-08-07] MEDS: ceFAZolin 2000MG 2,000 MG/15 ML SYR IV SCH (21:36)
[2020-08-07] MEDS ORDERED: NovoLIN-N (NPH) PER UNIT CHARGE SQ ONE (21:45)
[2020-08-07] MEDS ORDERED: INSULIN GLARGINE 100 UNIT/ML VIAL SC ONE (21:45)
[2020-08-08] MEDS: INSULIN ASPART 100 UNITS/ML 3 ML PEN SC SCH ×5 (04:07→21:31)
[2020-08-08] MEDS: SODIUM CHLORIDE 0.9% 1000ML 1,000 ML IV SCH ×2 (04:10→15:13)
[2020-08-08] MEDS ORDERED: COUGH DROP (SUGAR FREE) LOZ 24 LOZ/1 BOX BUCCAL ONE (04:14)
[2020-08-08] MEDS: LEVOTHYROXINE SODIUM 88 MCG TABLET PO SCH (06:23)
[2020-08-08] MEDS: POLYETHYLENE (MIRALAX) 17 GM PACK PO SCH ×4 (06:23→23:50)
[2020-08-08] MEDS: ceFAZolin 2000MG 2,000 MG/15 ML SYR IV SCH (06:23)
[2020-08-08 07:55] LABS: Hematocrit (blood only) 36.1 % (37-47); Hemoglobin 11.3 g/dL (12.0-16.0); Immature Granulocytes # (auto) 0.02 K/uL (0.00-0.02); Immature Granulocytes % (auto) 0.2 %; Lymphocytes # (auto) 0.96 K/uL (1.2-3.4); Lymphocytes % (auto) 11.4 %; Mean Corpuscular Hemoglobin 28.3 pg (25-34); Mean Corpuscular Hgb Conc 31.3 g/dL (32-36); Mean Corpuscular Volume 90.3 fL (80-100); Mean Platelet Volume 11.3 fL (7.4-10.4); Monocytes # (auto) 0.85 K/uL (0.11-0.59); Monocytes % (auto) 10.1 %; Neutrophils # (auto) 6.56 K/uL (1.4-6.5); Neutrophils % (auto) 78.3 %; Platelet Count 217 K/uL (130-400); RDW Coefficient of Variation 14.6 % (11.5-14.5); RDW Standard Deviation 47.8 fL (36.4-46.3); White Blood Count 8.39 K/uL (4.8-10.8)
--- NOTE | 2020-08-08 08:50 | Hospitalist Consultation ---
Date of Consultation August 08, 2020 Assessment & Plan (1) Neurogenic claudication due to lumbar spinal stenosis: * POD#1 s/p L5-S1 decompression fusion with Dr. Parish 08/07. EBL 100cc. On eliquis for hx CVA/DVT * H/h dropped to 11.3/36.1 -- acute blood loss anemia from surgery/dilutional fr om IVF. CBC in AM * PT/OT/bowel regimen/DVT prophylaxis per primary service * NSS @100cc/hr * Labs in AM (2) Hypertension: * Chronic. Stable * Continue hydralazine 50mg TID * Holding HCTZ for KAYLEIGH with Cr 1.46 (also continue IVD as she got AM dose prior to being held) Will check BMP in AM * BP 117/54 (3) Dyslipidemia: * Continue atorvastatin -- discussed switching to HS to help with myalgias (4) LBBB (left bundle branch block): * Follows with Dr. Aleman. 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 To be continued (11) KAYLEIGH (acute kidney injury): * Cr bumped to 1.46 on AM labs -- already received her HCTZ but will hold moving forward * Continue IVF @ 100cc/hr as above * Avoid nephrotoxic agents when possible, renally dose medications * BMP in AM (12) DVT prophylaxis: * Chemical means contraindicated * Will reach out to Dr. Parish to see about resuming patient's eliquis AD Thank you for allowing hospitalist team to participate in the care of Ms. Somers. Hospitalist service will follow along. Supervising Physician Co-Signing Physician Notes Attending Attestation & Consult Note: Pt seen/examined, chart reviewed, care plan d/w YOLANDA Crum. I agree w/ the pineda components of her documentation. Pleasant 74yo female - h/o morbid obesity, T2DM, hypothyroidism, LBBB, prior stroke - POD #1 from lumbar L5-S1 decompression/fusion procedure by Dr Parish. c/o lumbar spine pain during my rounds, but radicular pain was already better. Minimal flatus since surgery but no nausea/emesis/abd pain. No cp or dyspnea. PMH, PSH, allergies, meds, sochx, famhx - reviewed VSS, afebrile gen - sitting in chair, a/o x 3, obese mouth - MMM neck - no JVD heart - RRR, s1 s2 lungs - CTA b/l abd - soft NT BS+; mild distension present ext - <1+ edema b/l labs reviewed; Cr 1.4 noted Hb 11.3 A/P: POD #1 s/p L5-S1 decompression/fusion mild KAYLEIGH minimal acute blood loss anemia morbid obesity - BMI 40 YOSI - CPAP T2DM hypothyroidism h/o stroke repeat labs am resume eliquis when ok with ortho follow abdominal exam carefully given mild distension Hayder Tomlinson MD History of Present Illness Reason for Consultation: medical management Requesting Physician: Dr Parish Attending Physician: Ender Parish, DO History of Present Illness 74 year old female failing outpatient management with recent injection for lumbar stenosis with claudication presented for decompression fusion with Dr. Parish on 08/07. Patient states she is doing well post-operatively. Had a headache after surgery but nothing since that time. Pain currently controlled with ordered medications and primarily located around incision. Worked with therapy this morning and plans on returning home at discharge with family support. Some residual R deficient from CVA January 2019 unchanged. Numbness/tingling improved and lower symptoms. Eating/drinking without difficulty. Not passing gas or moved bowels yet but plans on walking the halls a little this afternoon to see if any help. Daughter in room to review medications -- patient has been taking metoprolol succinate 50mg at night at direction of Dr. Aleman and did not tolerate SERJIO/ARB due to cough. Not on any oxygen outpatient but does utilize CPAP with nasal pillows and has in the room with her. She utilizes as much as she is able to tolerate. Allergies Allergy/AdvReac Type Severity Reaction Status Date / Time oxycodone AdvReac Intermediate Hallucinati Verified 08/07/20 12:17 ons adhesive AdvReac Mild Redness of Verified 08/07/20 12:17 Skin Percocet TABS Allergy Intermediate Hallucinati Uncoded 08/07/20 12:17 ng Prinivil TABS Allergy Intermediate Dizziness Uncoded 08/07/20 12:17 Zithromax Z-Elliott TABS Allergy Intermediate SICK TO Uncoded 08/07/20 12:17 STOMACH Home Medications Medication Instructions Recorded Confirmed Type Lantus U-100 Insulin 55 unit SUBCUT BID 05/18/18 08/07/20 History albuterol sulfate 2 puff INHALATION Q6H PRN 05/18/18 08/07/20 History atorvastatin 40 mg PO QAM #30 tab 02/03/19 08/07/20 Rx meclizine 25 mg PO Q6H PRN #15 tab 02/03/19 08/07/20 Rx Eliquis 5 mg PO BID 03/24/19 08/07/20 History insulin lispro [Humalog KwikPen 14 unit SUBCUT AC 03/24/19 08/07/20 History Insulin] levothyroxine [Synthroid] 88 mcg PO QAM 04/24/19 08/07/20 History bupropion HCl 100 mg PO HS 07/15/20 08/07/20 History duloxetine 30 mg PO HS 07/15/20 08/07/20 History hydralazine 50 mg PO TID 07/15/20 08/07/20 History hydrochlorothiazide 25 mg PO QAM 07/15/20 08/07/20 History vit C,E-Gn-hxiul-lutein-zeaxan 1 tab PO QAM 07/15/20 08/07/20 History [PreserVision AREDS-2] lidocaine HCl applic 07/24/20 History metoprolol succinate 50 mg PO 07/24/20 History omeprazole 07/24/20 History hydrocodone-acetaminophen See Rx Instructions .ROUTE 08/08/20 Rx .COMPLEX PRN #20 tab tramadol 50 mg PO Q6H PRN #20 tab 08/08/20 Rx Patient History Medical History Cardiac murmur FOLLOWS WITH DR. ALEMAN Diabetes mellitus, type 2 Dyslipidemia GERD (gastroesophageal reflux disease) Hyperlipidemia Hypertension Hypothyroidism LBBB (left bundle branch block) Macular degeneration BLIND IN RT EYE Non-Hodgkins lymphoma DX'D 20 YRS AGO-F/U PCP NOW Osteoarthritis Peripheral neuropathy BILAT LEGS PFO (patent foramen ovale) MINIMAL, DOES NOT MEET CRITERIA FOR CLOSURE PER CARDIO CONSULT S/P CVA 02/01/19. Poor historian Seasonal allergies REASON FOR INHALER Sleep apnea CPAP DEVICE, USING FOR ~5 HRS PER NIGHT Stroke NOVEMBER 2018- ON ELIQUIS- CAME TO [facility] Surgical History H/O cervical spine surgery HARDWARE IN PLACE History of appendectomy History of arthroscopy R/L KNEE History of cardiac cath 01/2017 AFTER ABNORMAL NUCLEAR STRESS. CATH SHOWED NO EVIDENCE OF CAD. History of colonoscopy History of dilatation and curettage History of hysterectomy VENTURA BSO History of tonsillectomy History of tooth extraction Slow to wake up after anesthesia AND PONV Status post breast reduction BILAT Family History Family/Other Family history of diabetes mellitus Mother Cancer Father Myocardial infarction Aunt Family history of diabetes mellitus Social History Smoking Status: Former smoker Smoking End Date: 30 YEARS AGO; Second Hand Exposure: No; Do You Dip or Chew Tobacco: No; Tobacco Cessation Education Requested by Patient: No Hx Alcohol Use: Yes Alcohol type: beer Hx Substance Use: No Preferred Language: Belarusian Communication Ability: Effective Record Keeper Required: No Beliefs That Will Affect Care: None marital status: / Current Living Situation: Alone current occupational status: retired Feels Safe at Home: Yes Safety Concerns: Feels Safe At This Time Assistive Devices: Walker Review of Systems Review of Systems: All systems reviewed & are unremarkable except as noted in HPI & below Physical Exam Constitutional: WD/WN, vitals as above no acute distress Eyes: + anicteric sclerae and PERRL ENMT: Ears: no hearing impairment Nose: no external nose abnormality Neck: normal visual inspection and trachea midline Respiratory: normal respiratory effort, lungs clear to auscultation Auscultation: + diminished lung sounds and + crackles (faint bibasilar); no wheezes 95% on 1L NC Cardiovascular: RRR, no murmur, no edema Gastrointestinal (Abdomen): normal bowel sounds, soft, nontender, no hepatosplenomegaly Musculoskeletal: dressing to lumbar spine c/d/i CATY with scant bloody drainage NVI pulses palpable bilaterally Skin: warm, dry Neurologic: PERRL, EOMI, accommodation nl, no face palsy, no dysarthria Psychiatric: Orientation: alert, oriented x 3 and cooperative Lymphatic: no cervical or axillary lymphadenopathy Results & Data Results & Data ([facility]) Vital Signs (Past 12 Hours) Vital Signs Temp Pulse Resp BP Pulse Ox 08/08/20 07:06 36.6 C 70 18 117/54 L 95 08/08/20 04:03 36.4 C L 78 18 127/57 L 95 08/07/20 23:35 37.1 C 90 20 117/53 L 92 Laboratory Results 08/08/20 08/08/20 08/08/20 Range/Units 07:54 07:15 07:15 WBC 8.39 (4.8-10.8) K/uL RBC 4.00 L (4.2-5.4) M/uL Hgb 11.3 L (12.0-16.0) g/dL Hct 36.1 L (37-47) % MCV 90.3 (80-100) fL MCH 28.3 (25-34) pg MCHC 31.3 L (32-36) g/dL RDW Std Deviation 47.8 H (36.4-46.3) fL RDW Coeff of Jose 14.6 H (11.5-14.5) % Plt Count 217 (130-400) K/uL MPV 11.3 H (7.4-10.4) fL Immature Gran % (Auto) 0.2 % Neut % (Auto) 78.3 % Lymph % (Auto) 11.4 % [place] % (Auto) 10.1 % Eos % (Auto) 0.0 % Baso % (Auto) 0.0 % Neut # (Auto) 6.56 H (1.4-6.5) K/uL Lymph # (Auto) 0.96 L (1.2-3.4) K/uL [place] # (Auto) 0.85 H (0.11-0.59) K/uL Eos # (Auto) 0.00 (0-0.5) K/uL Baso # (Auto) 0.00 (0-0.2) K/uL Immature Gran # (Auto) 0.02 (0.00-0.02) K/uL Sodium 137 (136-145) mmol/L Potassium 4.2 (3.5-5.1) mmol/L Chloride 103 (98-107) mmol/L Carbon Dioxide 28 (21-32) mmol/L Anion Gap 6.0 (3-11) BUN 26 H (7-18) mg/dl Creatinine 1.46 H (0.6-1.2) mg/dl Est Cr Clr Drug Dosing 40.5 ml/min Est GFR ( Amer) 40.1 Est GFR (Non-Af Amer) 34.6 BUN/Creatinine Ratio 18.0 (10-20) Glucose 181 H (70-99) mg/dl POC Glucose 180 H (70-99) mg/dl Calcium 8.1 L (8.5-10.1) mg/dl 08/08/20 08/07/20 08/07/20 Range/Units 03:54 23:36 21:15 WBC (4.8-10.8) K/uL RBC (4.2-5.4) M/uL Hgb (12.0-16.0) g/dL Hct (37-47) % MCV (80-100) fL MCH (25-34) pg MCHC (32-36) g/dL RDW Std Deviation (36.4-46.3) fL RDW Coeff of Jose (11.5-14.5) % Plt Count (130-400) K/uL MPV (7.4-10.4) fL Immature Gran % (Auto) % Neut % (Auto) % Lymph % (Auto) % [place] % (Auto) % Eos % (Auto) % Baso % (Auto) % Neut # (Auto) (1.4-6.5) K/uL Lymph # (Auto) (1.2-3.4) K/uL [place] # (Auto) (0.11-0.59) K/uL Eos # (Auto) (0-0.5) K/uL Baso # (Auto) (0-0.2) K/uL Immature Gran # (Auto) (0.00-0.02) K/uL Sodium (136-145) mmol/L Potassium (3.5-5.1) mmol/L Chloride (98-107) mmol/L Carbon Dioxide (21-32) mmol/L Anion Gap (3-11) BUN (7-18) mg/dl Creatinine (0.6-1.2) mg/dl Est Cr Clr Drug Dosing ml/min Est GFR ( Amer) Est GFR (Non-Af Amer) BUN/Creatinine Ratio (10-20) Glucose (70-99) mg/dl POC Glucose 186 H 250 H 291 H (70-99) mg/dl Calcium (8.5-10.1) mg/dl 08/07/20 08/07/20 08/07/20 Range/Units 17:36 16:13 13:01 WBC (4.8-10.8) K/uL RBC (4.2-5.4) M/uL Hgb (12.0-16.0) g/dL Hct (37-47) % MCV (80-100) fL MCH (25-34) pg MCHC (32-36) g/dL RDW Std Deviation (36.4-46.3) fL RDW Coeff of Jose (11.5-14.5) % Plt Count (130-400) K/uL MPV (7.4-10.4) fL Immature Gran % (Auto) % Neut % (Auto) % Lymph % (Auto) % [place] % (Auto) % Eos % (Auto) % Baso % (Auto) % Neut # (Auto) (1.4-6.5) K/uL Lymph # (Auto) (1.2-3.4) K/uL [place] # (Auto) (0.11-0.59) K/uL Eos # (Auto) (0-0.5) K/uL Baso # (Auto) (0-0.2) K/uL Immature Gran # (Auto) (0.00-0.02) K/uL Sodium (136-145) mmol/L Potassium (3.5-5.1) mmol/L Chloride (98-107) mmol/L Carbon Dioxide (21-32) mmol/L Anion Gap (3-11) BUN (7-18) mg/dl Creatinine (0.6-1.2) mg/dl Est Cr Clr Drug Dosing ml/min Est GFR ( Amer) Est GFR (Non-Af Amer) BUN/Creatinine Ratio (10-20) Glucose (70-99) mg/dl POC Glucose 166 H 156 H 150 H (70-99) mg/dl Calcium (8.5-10.1) mg/dl PG Care Time/CCT Total # of Minutes Spent Total Time Spent with Patient: Total time spent is greater than 50% in coordination of care (as documented) at patient's floor/unit and/or counseling patient: Coding Level of Care Code 73656 Inpt Consult Level 3 Diagnoses Neurogenic claudication due to lumbar spinal stenosis M48.062 Hypertension I10 Hypertension type: essential hypertension Dyslipidemia E78.5 LBBB (left bundle branch block) I44.7 Diabetes E11.42; Z79.4 Diabetes mellitus complication detail: with polyneuropathy Diabetes mellitus complication status: with neurologic complications Diabetes mellitus [facility] insulin use: with 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 Diabetes mellitus type: type 2 Hypothyroid E03.9 Hypothyroidism type: acquired GERD (gastroesophageal reflux disease) K21.9 Esophagitis presence: esophagitis presence not specified BPPV (benign paroxysmal positional vertigo) H81.10 Stroke I63.9 CVA mechanism: unspecified Obstructive sleep apnea G47.33 KAYLEIGH (acute kidney injury) N17.9 DVT prophylaxis Z29.9 (1) Diabetes Diabetes mellitus complication detail: with polyneuropathy Diabetes mellitus complication status: with neurologic complications Diabetes mellitus ferry terminal supervisor insulin use: with [facility] use Diabetes mellitus type: type 2 Qualified Code(s): E11.42 - Type 2 diabetes mellitus with diabetic polyneuropathy; Z79.4 - terminal press operator (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
[2020-08-08] MEDS: hydrALAZINE TAB 50 MG TAB PO SCH ×3 (08:55→21:25)
[2020-08-08] MEDS: CEROVITE ADV FORMULA TAB PO SCH (08:55)
[2020-08-08] MEDS: hydroCHLOROthiazide 25 MG TAB PO SCH (08:55)
[2020-08-08] MEDS: Scopolamine CHECK PATCH PLACEMENT SCH ×3 (08:55→23:51)
[2020-08-08] MEDS: HYDROCODONE/ACETAMOPHEN 5/325MG TAB PO PRN (08:55)
[2020-08-08] MEDS: INSULIN GLARGINE 100 UNIT/ML VIAL SC SCH ×2 (08:56→21:29)
[2020-08-08] MEDS: ATORVASTATIN 40 MG TAB PO SCH (08:56)
[2020-08-08 09:04] LABS: Calcium 8.1 mg/dl (8.5-10.1); Creatinine Clr Calc Pharmacy 40.5 ml/min; Est GFR (African American) 40.1; Est GFR (Non-African American) 34.6; Potassium 4.2 mmol/L (3.5-5.1)
--- NOTE | 2020-08-08 10:22 | Pharmacy Report ---
Pharmacy Glycemic Short Note 2 - Date of Service August 08, 2020 - Glycemic Short BSG Results (Last 24 hours): 08/07/20 08/07/20 08/07/20 13:01 16:13 17:36 Glucose POC Glucose 150 H 156 H 166 H 08/07/20 08/07/20 08/08/20 21:15 23:36 03:54 Glucose POC Glucose 291 H 250 H 186 H 08/08/20 08/08/20 07:15 07:54 Glucose 181 H POC Glucose 180 H OUTPATIENT ANTIDIABETIC REGIMEN: * Lantus 55 units SQ BID * Lispro 14 units SQ AC * A1c = 9.5% ASSESSMENT: 08/08/20: * Patient's BSGs did spike, as expected, last evening after receiving IV dexamethasone. * Ordered insulin was sufficient to bring BSGs down to 180s by this morning. * Resumed patient's home basal insulin dosing this morning and will continue to provide tight coverage with Novolog until the effects of DXM have dissipated. 08/07/20 * Norma is a 74 yo female s/p lumbar surgery * She is maintained on significant doses of insulin at home (~152 units/day). It appears that last dose of basal insulin was taken 08/06 PM. * Dexamethasone 12 mg IV was removed from the omnicell during patients procedure (unsure if given - no documentation). * I will utilize tight Novolog parameters post operatively (carb ratio of 4 based on home insulin usage). * Continue home dose of Lantus and add one time dose of NPH (0.4 units/kg based on AdjBW). PLAN FOR INPATIENT GLYCEMIC CONTROL: * Basal insulin * Lantus 55 units SQ BID * Bolus insulin * NovoLog per scale ACHS or Q6hrs while NPO * Goal Range: Low 110 mg/dL - High 140 mg/dL * Correction Factor: 15 mg/dL/unit * Nutritional / Prandial insulin per carb ratio of 1 unit per 4 grams CHO consumed PLAN FOR DISCHARGE: * Patient's A1c (9.5%) indicates sub-optimal glycemic control as an outpt. Goal A1c ~ 7.5% * Expect that patient's insulin regimen may require adjustment on discharge. More to follow as admission progresses.
--- NOTE | 2020-08-08 10:27 | Orthopedic Progress Note ---
Date of Service August 08, 2020 Assessment & Plan (1) Neurogenic claudication due to lumbar spinal stenosis: Admission and Anticipated Discharge Date Admission Date: August 07, 2020 This time continue physical therapy monitor CATY output anticipate possible di scharge home Wednesday. Subjective Back pain controlled leg pain improved Physical Exam Physical Exam: Patient is in the chair at the bedside. Is improved strength testing. Results & Data ([facility]) Vital Signs (Past 12 Hours) Vital Signs Temp Pulse Resp BP Pulse Ox 08/08/20 07:06 36.6 C 70 18 117/54 L 95 08/08/20 04:03 36.4 C L 78 18 127/57 L 95 08/07/20 23:35 37.1 C 90 20 117/53 L 92
[2020-08-08] MEDS ORDERED: SODIUM CHLORIDE 0.9% 500 ML IV SCH (10:30)
[2020-08-08] MEDS: SODIUM CHLORIDE 0.9% 500 ML IV SCH ×2 (15:00→21:41)
[2020-08-08] MEDS: buPROPion HCl 100 MG TABLET PO SCH (21:24)
[2020-08-08] MEDS: DOCUSATE SODIUM/SENNA 50/8.6MG TAB PO SCH (21:24)
[2020-08-08] MEDS: METOPROLOL SUCC 50MG EXT REL TAB PO SCH (21:25)
[2020-08-08] MEDS: DULoxetine HCL 30 MG CAP PO SCH (21:25)
[2020-08-09] MEDS: HYDROCODONE/ACETAMOPHEN 5/325MG TAB PO PRN ×3 (01:54→13:12)
[2020-08-09] MEDS: SODIUM CHLORIDE 0.9% 500 ML IV SCH ×2 (04:27→10:49)
[2020-08-09] MEDS: LEVOTHYROXINE SODIUM 88 MCG TABLET PO SCH (06:07)
[2020-08-09] MEDS: POLYETHYLENE (MIRALAX) 17 GM PACK PO SCH ×3 (06:07→19:40)
[2020-08-09 07:02] LABS: Hematocrit (blood only) 36.1 % (37-47); Hemoglobin 11.3 g/dL (12.0-16.0); Mean Corpuscular Hemoglobin 27.8 pg (25-34); Mean Corpuscular Hgb Conc 31.3 g/dL (32-36); Mean Corpuscular Volume 88.7 fL (80-100); Mean Platelet Volume 10.8 fL (7.4-10.4); Platelet Count 200 K/uL (130-400); RDW Coefficient of Variation 14.5 % (11.5-14.5); RDW Standard Deviation 47.3 fL (36.4-46.3); Red Blood Count 4.07 M/uL (4.2-5.4); White Blood Count 9.59 K/uL (4.8-10.8)
[2020-08-09 07:31] LABS: Creatinine Clr Calc Pharmacy 53.8 ml/min; Est GFR (African American) 56.5; Est GFR (Non-African American) 48.7; Potassium 4.1 mmol/L (3.5-5.1)
[2020-08-09] MEDS: Scopolamine CHECK PATCH PLACEMENT SCH ×2 (07:40→15:49)
--- NOTE | 2020-08-09 08:05 | Hospitalist Progress Note ---
Date of Service August 09, 2020 Assessment & Plan (1) Neurogenic claudication due to lumbar spinal stenosis: * POD#2 s/p L5-S1 decompression fusion with Dr. Parish 08/07. EBL 100cc. On eliquis for hx CVA/DVT * H/h dropped to 11.3/36.1 -- acute blood loss anemia from surgery/dilutional from IVF. * Repeat h/h stable even on fluids at the same * PT/OT/bowel regimen/DVT prophylaxis per primary service * NSS for another 500cc then discontinue * Labs in AM (2) Hypertension: * Chronic. Stable , 128/63 * Continue hydralazine 50mg TID * Held HCTZ for KAYLEIGH with Cr 1.46 (also continued IVF as she got AM dose prior to being held) * Cr on AM 1.10 and will have HCTZ resumed in AM unless BPs trend up prior to that. * BMP in AM to ensure stability of Cr (3) Dyslipidemia: * Continue atorvastatin -- discussed switching to HS to help with myalgias --> will change for tomorrow evening (4) LBBB (left bundle branch block): * Follows with Dr. Aleman. * Was s/p chemo/radiation to chest and neck for non-hodgkin's lymphoma 1992 * Cath 2016 [facility] without epicardial CAD * Continue metoprolol 50mg HS * Unable to tolerate valsartan due to cough (5) Diabetes: * A1C 9.5 -- on lispro 14u AC, Lantus 55u SC BID CLINICAL RADIOLOGIST * Pharmacy consulted for glycemic management -- low glucose 58 this morning and adjustments made * Continue to monitor (6) Hypothyroid: * Continue levothyroxine 88mcg daily. Will repeat in AM given last TSH elevated and no repeat since (7) GERD (gastroesophageal reflux disease): * Not on any medications CLINICAL RADIOLOGIST -- no issues reported (8) BPPV (benign paroxysmal positional vertigo): * Meclizine prn (9) Stroke: * January 2019 * On Eliquis -- to be resumed AD as allowed by surgery -- plans to resume AM wednesday (10) Obstructive sleep apnea: * CPAP with patient from home -- utilizes with nasal pillows. To be continued (11) KAYLEIGH (acute kidney injury): * Cr bumped to 1.46 and already received her HCTZ 08/08 * Given IVF with Cr improved to 1.1 * IVF as above for today then d/c * Avoid nephrotoxic agents when possible, renally dose medications * BMP in AM (12) DVT prophylaxis: * Chemical means contraindicated * Per discussion with Dr. Parish -- plans to resume AM 08/10 Thank you for allowing hospitalist team to participate in the care of Ms. Somers. Hospitalist service will sign off at this time and just chart check BMP/TSH in AM. Please call with any questions/concerns. Admission and Anticipated Discharge Date Admission Date: August 07, 2020 Subjective Patient evaluated this morning. Did have some increased pain today compared to yesterday but may have waited too long prior to being medicated. Walked halls yesterday and slightly less distance today due to pain. Eating/drinking without difficulty. No BM but is passing increased amounts of gas. No fever, chills, chest pain, shortness of breath, nausea or vomiting, numbness or tingling. Has been utilizing incentive spirometer frequently and getting good results. No longer requiring supplemental oxygen. Has voided without difficulty since pike removed. Hopeful for discharge tomorrow. Discussed resuming her anticoagulation in AM per discussion I had with Dr. Parish yesterday. Review of Systems Review of Systems: All systems reviewed & are unremarkable except as noted in HPI & below Physical Exam Constitutional: WD/WN, vitals as above no acute distress Eyes: + anicteric sclerae and PERRL ENMT: Ears: no hearing impairment Nose: no external nose abnormality Neck: normal visual inspection and trachea midline Respiratory: normal respiratory effort, lungs clear to auscultation Auscultation: no crackles and no wheezes Cardiovascular: Rate/Rhythm: regular rate and regular rhythm Vessels: no JVD Extremities: + edema (trace pedal edema) Gastrointestinal (Abdomen): normal bowel sounds, soft, nontender, no hepatosplenomegaly Musculoskeletal: dressing to lumbar spine c/d/i CATY with blood drainage NVI pulses palpable bilaterally calves non-tender to palpation LUE cyber incident handler strength 4/5, RUE 5/5 -- residual from CVA 2018, chronic and unchanged Neurologic: PERRL, EOMI, accommodation nl, no face palsy, no dysarthria Psychiatric: Orientation: alert, oriented x 3 and cooperative Lymphatic: no cervical or axillary lymphadenopathy Results & Data Results & Data ([facility]) Vital Signs (Past 12 Hours) Vital Signs Temp Pulse Resp BP BP Pulse Ox 08/08/20 23:12 37.0 C 79 18 128/63 96 08/08/20 21:23 83 156/63 H Laboratory Results 08/09/20 08/09/20 08/09/20 Range/Units 06:40 06:40 06:40 WBC 9.59 (4.8-10.8) K/uL RBC 4.07 L (4.2-5.4) M/uL Hgb 11.3 L (12.0-16.0) g/dL Hct 36.1 L (37-47) % MCV 88.7 (80-100) fL MCH 27.8 (25-34) pg MCHC 31.3 L (32-36) g/dL RDW Std Deviation 47.3 H (36.4-46.3) fL RDW Coeff of Jose 14.5 (11.5-14.5) % Plt Count 200 (130-400) K/uL MPV 10.8 H (7.4-10.4) fL Sodium 140 (136-145) mmol/L Potassium 4.1 (3.5-5.1) mmol/L Chloride 106 (98-107) mmol/L Carbon Dioxide 34 H (21-32) mmol/L Anion Gap -1.0 L (3-11) BUN 25 H (7-18) mg/dl Creatinine 1.10 D (0.6-1.2) mg/dl Est Cr Clr Drug Dosing 53.8 ml/min Est GFR ( Amer) 56.5 Est GFR (Non-Af Amer) 48.7 BUN/Creatinine Ratio 23.0 H (10-20) Glucose 58 L (70-99) mg/dl POC Glucose (70-99) mg/dl Calcium 8.0 L (8.5-10.1) mg/dl Vitamin B12 Pending 08/08/20 08/08/20 08/08/20 Range/Units 20:38 17:18 12:19 WBC (4.8-10.8) K/uL RBC (4.2-5.4) M/uL Hgb (12.0-16.0) g/dL Hct (37-47) % MCV (80-100) fL MCH (25-34) pg MCHC (32-36) g/dL RDW Std Deviation (36.4-46.3) fL RDW Coeff of Jose (11.5-14.5) % Plt Count (130-400) K/uL MPV (7.4-10.4) fL Sodium (136-145) mmol/L Potassium (3.5-5.1) mmol/L Chloride (98-107) mmol/L Carbon Dioxide (21-32) mmol/L Anion Gap (3-11) BUN (7-18) mg/dl Creatinine (0.6-1.2) mg/dl Est Cr Clr Drug Dosing ml/min Est GFR ( Amer) Est GFR (Non-Af Amer) BUN/Creatinine Ratio (10-20) Glucose (70-99) mg/dl POC Glucose 272 H 227 H 215 H (70-99) mg/dl Calcium (8.5-10.1) mg/dl Vitamin B12 08/08/20 Range/Units 07:15 WBC (4.8-10.8) K/uL RBC (4.2-5.4) M/uL Hgb (12.0-16.0) g/dL Hct (37-47) % MCV (80-100) fL MCH (25-34) pg MCHC (32-36) g/dL RDW Std Deviation (36.4-46.3) fL RDW Coeff of Jose (11.5-14.5) % Plt Count (130-400) K/uL MPV (7.4-10.4) fL Sodium 137 (136-145) mmol/L Potassium 4.2 (3.5-5.1) mmol/L Chloride 103 (98-107) mmol/L Carbon Dioxide 28 (21-32) mmol/L Anion Gap 6.0 (3-11) BUN 26 H (7-18) mg/dl Creatinine 1.46 H (0.6-1.2) mg/dl Est Cr Clr Drug Dosing 40.5 ml/min Est GFR ( Amer) 40.1 Est GFR (Non-Af Amer) 34.6 BUN/Creatinine Ratio 18.0 (10-20) Glucose 181 H (70-99) mg/dl POC Glucose (70-99) mg/dl Calcium 8.1 L (8.5-10.1) mg/dl Vitamin B12 PG Care Time/CCT Total # of Minutes Spent Total Time Spent with Patient: Total time spent is greater than 50% in coordination of care (as documented) at patient's floor/unit and/or counseling patient: Coding Level of Care Code 63086 Subseq Hosp Care Lvl 2 Diagnoses Neurogenic claudication due to lumbar spinal stenosis M48.062 Hypertension I10 Hypertension type: essential hypertension Dyslipidemia E78.5 LBBB (left bundle branch block) I44.7 Diabetes E11.42; Z79.4 Diabetes mellitus type: type 2 Diabetes mellitus 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 insulin use: with chcf use Diabetes mellitus complication status: with neurologic complications Diabetes mellitus complication detail: with polyneuropathy Hypothyroid E03.9 Hypothyroidism type: acquired GERD (gastroesophageal reflux disease) K21.9 Esophagitis presence: esophagitis presence not specified BPPV (benign paroxysmal positional vertigo) H81.10 Stroke I63.9 CVA mechanism: unspecified Obstructive sleep apnea G47.33 KAYLEIGH (acute kidney injury) N17.9 DVT prophylaxis Z29.9 (1) Hypertension Hypertension type: essential hypertension Qualified Code(s): I10 - Essential (primary) hypertension (2) Diabetes Diabetes mellitus type: type 2 Diabetes mellitus 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 insulin use: with 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 yard use Diabetes mellitus complication status: with neurologic complications Diabetes mellitus complication detail: with polyneuropathy Qualified Code(s): E11.42 - Type 2 diabetes mellitus with diabetic polyneuropathy; Z79.4 - intermediate card tender (current) use of insulin (3) Hypothyroid Hypothyroidism type: acquired Qualified Code(s): E03.9 - Hypothyroidism, unspecified (4) GERD (gastroesophageal reflux disease) Esophagitis presence: esophagitis presence not specified Qualified Code(s): K21.9 - Gastro-esophageal reflux disease without esophagitis (5) Stroke CVA mechanism: unspecified Qualified Code(s): I63.9 - Cerebral infarction, unspecified
[2020-08-09] MEDS: CARBOHYDRATES FOR HYPOGLYCEMIA PO PRN (08:10)
[2020-08-09] MEDS: INSULIN ASPART 100 UNITS/ML 3 ML PEN SC SCH ×4 (09:10→21:09)
[2020-08-09] MEDS: CEROVITE ADV FORMULA TAB PO SCH (09:11)
[2020-08-09] MEDS: hydrALAZINE TAB 50 MG TAB PO SCH ×3 (09:11→21:16)
[2020-08-09] MEDS: ATORVASTATIN 40 MG TAB PO SCH (09:12)
[2020-08-09] MEDS: INSULIN GLARGINE 100 UNIT/ML VIAL SC SCH ×2 (09:12→21:11)
--- NOTE | 2020-08-09 09:17 | Pharmacy Report ---
Pharmacy Glycemic Short Note 2 - Date of Service August 09, 2020 - Glycemic Short BSG Results (Last 24 hours): 08/08/20 08/08/20 08/08/20 12:19 17:18 20:38 Glucose POC Glucose 215 H 227 H 272 H 08/09/20 08/09/20 08/09/20 06:40 08:06 08:28 Glucose 58 L POC Glucose 58 L* 71 OUTPATIENT ANTIDIABETIC REGIMEN: * Lantus 55 units SQ BID * Lispro 14 units SQ AC * A1c = 9.5% ASSESSMENT: 08/09/20: * Pt has received 171 units of SQ insulin over the past 24hrs * 110 units of basal insulin with Lantus * 61 units of bolus insulin with NovoLog * Pt with LOW BSG this AM. Hypoglycemia at 58-71 mg/dl. May have been cause by too much basal insulin; current basal insulin dosing is c/w outpatient dosing. Outpatient insulin regimen is weighted towards basal insulin. Basal insulin may be covering some prandial needs which is too much for controlled CHO diet in house. Will reduce Lantus dosing by 20% to prevent subsequent LOW tomorrow. * No changes needed to bolus insulin coverage. 08/08/20: * Patient's BSGs did spike, as expected, last evening after receiving IV dexamethasone. * Ordered insulin was sufficient to bring BSGs down to 180s by this morning. * Resumed patient's home basal insulin dosing this morning and will continue to provide tight coverage with Novolog until the effects of DXM have dissipated. 08/07/20 * Norma is a 74 yo female s/p lumbar surgery * She is maintained on significant doses of insulin at home (~152 units/day). It appears that last dose of basal insulin was taken 08/06 PM. * Dexamethasone 12 mg IV was removed from the omnicell during patients procedure (unsure if given - no documentation). * I will utilize tight Novolog parameters post operatively (carb ratio of 4 based on home insulin usage). * Continue home dose of Lantus and add one time dose of NPH (0.4 units/kg based on AdjBW). PLAN FOR INPATIENT GLYCEMIC CONTROL: * Basal insulin: decrease by 20% * Lantus 45 units SQ BID * Bolus insulin: no change * NovoLog per scale ACHS or Q6hrs while NPO * Goal Range: Low 110 mg/dL - High 140 mg/dL * Correction Factor: 15 mg/dL/unit * Nutritional / Prandial insulin per carb ratio of 1 unit per 4 grams CHO consumed PLAN FOR DISCHARGE: * Patient's A1c (9.5%) indicates sub-optimal glycemic control as an outpt. Goal A1c ~ 7.5% * Expect that patient's insulin regimen may require adjustment on discharge. More to follow as admission progresses.
--- NOTE | 2020-08-09 10:38 | Pharmacy Report ---
Pharmacy Glycemic Short Note 2 - Date of Service August 09, 2020 - Glycemic Short BSG Results (Last 24 hours): 08/08/20 08/08/20 08/08/20 07:15 12:19 17:18 Glucose 181 H POC Glucose 215 H 227 H 08/08/20 08/09/20 08/09/20 20:38 06:40 08:06 Glucose 58 L POC Glucose 272 H 58 L* 08/09/20 08:28 Glucose POC Glucose 71 OUTPATIENT ANTIDIABETIC REGIMEN: * Lantus 55 units SQ BID * Lispro 14 units SQ AC * A1c = 9.5% ASSESSMENT: 08/08/20: * Patient's BSGs did spike, as expected, last evening after receiving IV dexamethasone. * Ordered insulin was sufficient to bring BSGs down to 180s by this morning. * Resumed patient's home basal insulin dosing this morning and will continue to provide tight coverage with Novolog until the effects of DXM have dissipated. 08/07/20 * Norma is a 74 yo female s/p lumbar surgery * She is maintained on significant doses of insulin at home (~152 units/day). It appears that last dose of basal insulin was taken 08/06 PM. * Dexamethasone 12 mg IV was removed from the omnicell during patients procedure (unsure if given - no documentation). * I will utilize tight Novolog parameters post operatively (carb ratio of 4 based on home insulin usage). * Continue home dose of Lantus and add one time dose of NPH (0.4 units/kg based on AdjBW). PLAN FOR INPATIENT GLYCEMIC CONTROL: * Basal insulin * Lantus 55 units SQ BID * Bolus insulin * NovoLog per scale ACHS or Q6hrs while NPO * Goal Range: Low 110 mg/dL - High 140 mg/dL * Correction Factor: 15 mg/dL/unit * Nutritional / Prandial insulin per carb ratio of 1 unit per 4 grams CHO consumed PLAN FOR DISCHARGE: * Patient's A1c (9.5%) indicates sub-optimal glycemic control as an outpt. Goal A1c ~ 7.5% * Expect that patient's insulin regimen may require adjustment on discharge. More to follow as admission progresses.
[2020-08-09] MEDS ORDERED: NovoLIN-N (NPH) PER UNIT CHARGE SQ ONE (11:15)
[2020-08-09] MEDS ORDERED: DEXAMETHASONE SOD PHOSPHATE 8 MG in SYRINGE 0 ML IV ONE (11:30)
[2020-08-09] MEDS ORDERED: ALBUTEROL 0.083% NEBU SOLN 3 ML VIAL NEB STA (14:29)
--- NOTE | 2020-08-09 15:21 | XRay Report ---
SINGLE VIEW CHEST CLINICAL HISTORY: Dyspnea. FINDINGS: 2 AP, portable, upright chest radiographs are compared to study dated 07/24/2020. Correlati on is made with chest CT dated 02/01/2019. The examination is degraded by portable technique, apical l ordotic positioning, and patient rotation. The heart is enlarged noting atherosclerotic calcificatio n of the thoracic aorta. There is pulmonary vascular congestion. Mild bilateral airspace opacities li aguilar represent interstitial edema. No large pleural effusion or pneumothorax is seen. The skeletal st ructures are osteopenic. The bony thorax is grossly intact. Fusion hardware is seen in the lower cerv ical spine. Surgical clips project over the left chest wall. IMPRESSION: 1. Cardiomegaly with evidence of congestive failure. 2. Bilateral airspace opacities likely represent interstitial edema. Correlate clinically for evidenc e of a superimposed infectious/inflammatory pneumonitis. ACT 112: Negative or not required by law. Electronically signed by: Dread Hansen M.D. 08/09/2020 3:20 PM
--- NOTE | 2020-08-09 15:49 | Orthopedic Progress Note ---
Date of Service August 09, 2020 Assessment & Plan (1) Neurogenic claudication due to lumbar spinal stenosis: Admission and Anticipated Discharge Date Admission Date: August 07, 2020 This time continue physical therapy maintain her CATY drain anticipate discharge home tomorrow. Subjective Back pain controlled leg symptoms markedly improved. Physical Exam Physical Exam: Patient is comfortable is good strength testing. Results & Data ([facility]) Vital Signs (Past 12 Hours) Vital Signs Temp Pulse Resp BP BP Pulse Ox 08/09/20 15:22 36.6 C 72 19 147/63 H 93 08/09/20 14:47 70 18 86 L 08/09/20 13:52 37.4 C 80 19 118/65 90
[2020-08-09] MEDS ORDERED: FUROSEMIDE 20 MG in SYRINGE 0 ML IV ONE (16:00)
[2020-08-09] MEDS: DULoxetine HCL 30 MG CAP PO SCH (21:09)
[2020-08-09] MEDS: buPROPion HCl 100 MG TABLET PO SCH (21:16)
[2020-08-09] MEDS: DOCUSATE SODIUM/SENNA 50/8.6MG TAB PO SCH (21:16)
[2020-08-09] MEDS: METOPROLOL SUCC 50MG EXT REL TAB PO SCH (21:16)
--- NOTE | 2020-08-09 21:33 | Electrocardiogram Report ---
Test Reason : Blood Pressure : / mmHG Vent. Rate : 067 BPM Atrial Rate : 067 BPM P-R Int : 166 ms QRS Dur : 158 ms QT Int : 440 ms P-R-T Axes : 030 -16 155 degrees QTc Int : 464 ms Normal sinus rhythm Left bundle branch block Abnormal ECG When compared with ECG of 09-AUG-2020 14:54, (unconfirmed) No significant change was found Confirmed by Reji Gomez ([id number]) on 08/09/2020 9:32:55 PM Referred By: Ender Parish Confirmed By:Reji Gomez
--- NOTE | 2020-08-09 21:33 | Electrocardiogram Report ---
Test Reason : Blood Pressure : / mmHG Vent. Rate : 070 BPM Atrial Rate : 070 BPM P-R Int : 180 ms QRS Dur : 148 ms QT Int : 416 ms P-R-T Axes : 044 -10 158 degrees QTc Int : 449 ms Poor data quality, interpretation may be adversely affected Normal sinus rhythm Left bundle branch block Abnormal ECG When compared with ECG of 30-JAN-2019 10:23, No significant change was found Confirmed by Reji Gomez ([id number]) on 08/09/2020 9:32:47 PM Referred By: Ender Parish Confirmed By:Reji Gomez
[2020-08-10] MEDS: POLYETHYLENE (MIRALAX) 17 GM PACK PO SCH ×4 (00:29→17:45)
[2020-08-10] MEDS: HYDROCODONE/ACETAMOPHEN 5/325MG TAB PO PRN ×3 (00:31→17:46)
[2020-08-10] MEDS: Scopolamine CHECK PATCH PLACEMENT SCH (00:32)
[2020-08-10] MEDS: LEVOTHYROXINE SODIUM 88 MCG TABLET PO SCH (06:02)
[2020-08-10 08:05] LABS: BUN Creatinine Ratio 23.5 (10-20); Calcium 8.5 mg/dl (8.5-10.1); Creatinine Clr Calc Pharmacy 53.8 ml/min; Est GFR (African American) 56.5; Est GFR (Non-African American) 48.7; Potassium 4.8 mmol/L (3.5-5.1)
[2020-08-10 08:15] LABS: Thyroid Stimulating Hormone 0.703 uIu/ml (0.300-4.500)
[2020-08-10 08:25] LABS: Hematocrit (blood only) 34.4 % (37-47); Mean Corpuscular Hemoglobin 28.6 pg (25-34); Mean Corpuscular Volume 89.6 fL (80-100); Mean Platelet Volume 11.6 fL (7.4-10.4); Platelet Count 219 K/uL (130-400); RDW Coefficient of Variation 14.7 % (11.5-14.5); RDW Standard Deviation 47.8 fL (36.4-46.3); Red Blood Count 3.84 M/uL (4.2-5.4); White Blood Count 9.67 K/uL (4.8-10.8)
[2020-08-10] MEDS: hydroCHLOROthiazide 25 MG TAB PO SCH (08:35)
[2020-08-10] MEDS: CEROVITE ADV FORMULA TAB PO SCH (08:35)
[2020-08-10] MEDS: hydrALAZINE TAB 50 MG TAB PO SCH ×3 (08:35→21:41)
[2020-08-10] MEDS: INSULIN GLARGINE 100 UNIT/ML VIAL SC SCH ×2 (08:35→21:43)
[2020-08-10] MEDS: INSULIN ASPART 100 UNITS/ML 3 ML PEN SC SCH ×4 (08:36→21:45)
--- NOTE | 2020-08-10 09:07 | Discharge Summary ---
Date of Service August 10, 2020 Admission HPI Per Admitting Provider This is a 74-year-old female presents with chronic persistent back and leg pain. Failing course of nonoperative care is here for surgical invention. Principal Diagnosis Lumbar spinal stenosis with neurogenic claudication Discharge Data Allergies Allergy/AdvReac Type Severity Reaction Status Date / Time oxycodone AdvReac Intermediate Hallucinati Verified 08/07/20 12:17 ons adhesive AdvReac Mild Redness of Verified 08/07/20 12:17 Skin Percocet TABS Allergy Intermediate Hallucinati Uncoded 08/07/20 12:17 ng Prinivil TABS Allergy Intermediate Dizziness Uncoded 08/07/20 12:17 Zithromax Z-Elliott TABS Allergy Intermediate SICK TO Uncoded 08/07/20 12:17 STOMACH Consultations 08/07/20 17:23 Consult Case Management - Discharge Planning Routine 08/07/20 17:46 Consult Hospitalist Routine Procedures Performed Operation Date: 08/07/20 13:15 Actual Procedures p L5-S1 Decompression and Fusion with interbody, Spinal Cord Monitoring(Not Applicable) - Ender Parish DO Ordered Studies 08/07/20 13:15 FL fluoroscopy <1hr Routine FL lumbar spine 2-3V Routine Diabetes Follow up Diabetes Follow-up Needed for HgbA1c >9% Hospital Course (1) Neurogenic claudication due to lumbar spinal stenosis: Patient with lumbar decompression fusion tolerated this well was taken to the orthopedic for postop labor postop day 1 she was up ambulating post the postop day #2 postop day 3 CATY drain decreased appropriately. Pain well controlled. Excellent strength testing. Subsequently discharged home. Discharge orders and instructions found in the chart for further review. Total Time Total Time Spent Total Time Spent (In Minutes): 20 minutes Discharge Plan Discharge Items Patient Disposition: Home - Self-Care Reason For Visit: Spinal Stenosis, Lumbar Region with Neurogenic Cla Discharge Diagnosis: Lumbar spinal stenosis with neurogenic claudication Activity: As commented below Non-emergency contact: Primary Care Provider Call non-emergency contact if: you have any medication questions Follow-up/Referrals: Moe Kraft MD [Primary Care Provider] - Diet: Regular Addtl Attending Provider Instructions: ACTIVITY RECOMMENDATIONS: SELF CARE INSTRUCTIONS AFTER THORACIC/LUMBAR FUSIONS 1. You may walk to your tolerance. It is good exercise for your legs and back. Expect some back and intermittent leg aches and pains. 2. You may perform "counter-top" level activities (make a sandwich, feliz with a project, etc.). 3. No bending or lifting of more than 10 pounds or back twisting of any nature (roll like a log when turning in bed). 4. You may ride in a car for 20-30 minutes at a time. No driving until after your first visit with your doctor. 5. Frequent changes of position and restricting sitting to 30 minutes at a time will help limit the amount of back spasms and stiffness you may experience. 6. You may discontinue the use of ambulatory aids (cane, crutches, etc.) once your strength and confidence allow. 7. You may electrical products engineer the shower and let water strike your incision when you arrive home at least once daily. Do not take a tub bath, sit in a hot tub or go into a swimming pool until after your first recheck in the office. SPECIAL CARE INSTRUCTIONS: VERY IMPORTANT TO READ AND REVIEW A. Your surgical incision has been closed with a cosmetic suture under the skin that will dissolve in about 6 weeks. In 14 days, you can use a pair of clean scissors and cut the suture that is left outside of the skin at the ends of your incision. 1. The small skin tapes can be removed 7 days after surgery if they have not fallen off by that point. 2. You may keep the wound open to air as much as possible to promote healing after post-op day number 5 unless told otherwise by your doctor. 3. If you think the wound looks like it is becoming infected (redness or worsening drainage) and/or you are experiencing fever, chill or worsening back pain and muscle spasms, contact the office so that we may evaluate you as soon as possible. B. Complications are uncommon, but please contact us if you have any signs or symptoms of: 1. wound infection (fever higher than 102.5 degrees F, redness, separation of wound, drainage, or increasing pain from the incision) 2. blood clots in legs (pain, swelling, redness and warmth in legs) 3. urinary tract infection (fever higher than 102.5 degrees F, burning upon urination or increased frequency of urination) 4. nerve problems (inability to walk on your toes or heels, numbness, loss of bowel or bladder control) 5. any other symptoms that concern you C. Please call the office at if you have any concerns or questions about your operation or recovery. D. No smoking! Smoking drastically decreases the chance of a solid fusion. E. Do not take any anti-inflammatory medications (Indocin, Advil, Motrin, Aspirin, Naprosyn, etc.) as these may inhibit the chance of a solid fusion. Tylenol is okay to take for pain. MANAGING PAIN AFTER SPINAL SURGERY 1. Narcotic medication is intended for short-term use and will be provided for surgical pain. Surgical pain usually lasts for a period of 4-6 weeks. Narcotic medication includes Percocet, Vicodin, Darvocet, Tylenol #3 or Lortab. 2. Longer-term pain is more appropriately treated with non-narcotic medication such as Tylenol ES. 3. Muscle spasm is not appropriately treated with narcotics. Muscle relaxers such as Soma, Flexeril or Skelaxin can be used along with Tylenol ES. 4. Remember that we all live with some "aches and pains". This is not unusual or uncommon after an injury or as we get older. a. Back pain is expected and may include muscle spasms for 4 to 6 weeks after surgery. The pain should gradually improve. If the pain worsens for no apparent reason, please contact the office. b. Intermittent leg pain may also be experienced and should not be concerned about unless it worsens for no apparent reason. If so, please contact the office. 5. We will provide appropriate medication within the normal guidelines of their prescribed use. We will also be very cautious and aware of potential abuse and extended duration of patients' medication needs. a. Pain medications are for your comfort and to assist with sleep and rest so that the tissue can heal. They are not provided in order to return to normal activity and should not be used through the day. To do so or worsening pain at night can result from ongoing tissue damage and develop ment of tolerance to the prescribed medicine. 6. Please allow 2-3 days to process refills. Prescriptions will not be mailed but must be picked up at the office. FOLLOW UP VISIT: Keep your scheduled follow-up appointment. Any questions, please call the office at . Pending Studies at Discharge: No Stand-Alone Forms: [employer], Smoking Cessation Medications and DC Order Prescriptions: New hydrocodone-acetaminophen 5-325 mg tablet See Rx Instructions .ROUTE .COMPLEX PRN (Reason: pain) Qty: 20 RF: 0 tramadol 50 mg tablet 50 mg PO Q6H PRN (Reason: pain, moderate) Qty: 20 RF: 0 Continued Lantus U-100 Insulin 100 unit/mL Solution 55 unit SUBCUT BID RF: 0 albuterol sulfate 90 mcg/actuation Hfa Aerosol Inhaler 2 puff INHALATION Q6H PRN (Reason: Wheezing) RF: 0 atorvastatin 40 mg Tablet 40 mg PO QAM Qty: 30 RF: 0 meclizine 25 mg Tablet 25 mg PO Q6H PRN (Reason: dizziness) Qty: 15 RF: 0 insulin lispro [Humalog KwikPen Insulin] 100 unit/mL insulin pen 14 unit subcut AC RF: 0 Eliquis 5 mg tablet 5 mg PO BID RF: 0 levothyroxine [Synthroid] 88 mcg tablet 88 mcg PO QAM RF: 0 bupropion HCl 100 mg Tablet 100 mg PO HS RF: 0 hydralazine 50 mg Tablet 50 mg PO TID RF: 0 hydrochlorothiazide 25 mg Tablet 25 mg PO QAM RF: 0 duloxetine 30 mg Capsule,Delayed Release(Dr/Ec) 30 mg PO HS RF: 0 PreserVision AREDS-2 [id number] am-kshz-er-mg Capsule 1 tab PO QAM RF: 0 metoprolol succinate 50 mg tablet extended release 24 hr 50 mg PO RF: 0 omeprazole 20 mg capsule,delayed release(DR/EC) RF: 0 lidocaine HCl 3 % cream RF: 0 Discharge Orders: Discharge Order (Routine); Ordered 08/10/20 Ordered By: Ender Sosa/Other Patient Handouts: Managing Type 2 Diabetes, Diabetes: Meal Planning Admission Data Admit Date/Time: 08/07/20 16:28 Attending Provider: Ender Parish Admit Provider: Ender Parish Primary Care Provider: Moe Kraft Other Providers: Nikhil Fox
[2020-08-10] MEDS ORDERED: FUROSEMIDE 20 MG in SYRINGE 0 ML IV ONE (10:15)
[2020-08-10] MEDS ORDERED: OPTIRAY 320 125ml IV ONE (15:06)
--- NOTE | 2020-08-10 16:08 | CT Scan Report ---
CT angio chest PE protocol CT DOSE: 846.51 mGy.cm HISTORY: 74 years-old Female with PE. Acute shortness of breath with chest pain TECHNIQUE: Multiple CTA images of the chest were obtained after the intravenous administration of 116 ml Optiray 320. Coronal and sagittal MIPS were obtained from the axial data set and were submitted for review. All measurements were obtained according to NASCET criteria. A dose lowering technique w as utilized adhering to the principles of ALARA. COMPARISON: Chest radiograph 08/09/2020, CT chest 02/01/2019 FINDINGS: CTA: Moderate cardiomegaly. No pericardial effusion. Minimal coronary artery calcifications. The left hear t structures are not well opacified and therefore suboptimally evaluated. There is prominent atheroma tous/ulcerative plaque of the aortic isthmus/proximal descending thoracic aorta without high-grade st enosis. The pulmonary artery is opacified to level of the subsegmental branches and demonstrates no f illing defects to suggest thromboembolic disease. Opacified collateral vessels of the left chest wall may be secondary to left subclavian vein narrowing. CT CHEST: No large thyroid nodule. Calcified subcarinal and hilar lymph nodes compatible with prior granulomato us disease. Trace pleural effusions. Mild intralobular septal thickening with intermixed groundglass densities and mild mosaic attenuation. Mild bronchial wall thickening. Mild dependent subsegmental bi basilar atelectasis. Central airways are patent. Nonspecific mild mid and distal esophageal wall thickening. Imaged upper abdomen is otherwise unremar kable. Soft tissues are within normal limits. Degenerative changes of the shoulders and spine. Remote right-sided rib fractures. Mid thoracic dextroscoliosis. Partially imaged anterior fusion hardware o f the cervical spine. IMPRESSION: 1. No evidence of pulmonary thromboembolic disease. 2. Cardiomegaly with mild pulmonary edema and trace pleural effusions. 3. No adenopathy. ACT 112: Negative or not required by law. The above report was generated using voice recognition software. It may contain grammatical, syntax o r spelling errors. Electronically signed by: Mor Tam M.D. 08/10/2020 4:07 PM
[2020-08-10] MEDS ORDERED: FUROSEMIDE 40 MG in SYRINGE 0 ML IV ONE (18:55)
--- NOTE | 2020-08-10 19:07 | Hospitalist Progress Note ---
Date of Service August 10, 2020 Assessment & Plan (1) Neurogenic claudication due to lumbar spinal stenosis: * POD#3 s/p L5-S1 decompression fusion with Dr. Parish 08/07. EBL 100cc. On eliquis for hx CVA/DVT * H/h dropped to 11.3/36.1 -- acute blood loss anemia from surgery/dilutional from IVF - stable * PT/OT/bowel regimen/DVT prophylaxis per primary service * Labs in AM * Asked nursing to remove drain this evening as it did not get pulled this morning because patient's discharge was held. (2) Hypoxia: Secondary to congestive changes on CXR Sent for CTA today given persistent sob and hypoxia despite lasix 20 mg x 2 doses yesterday and today. CTA showed no evidence of PE. She does have mild pulmonary edema and trace pleural effusions Echo 07/2020 showed EF 58%, hypertrophic cardiomyopathy Will given another dose of Lasix this evening 40 mg - will need to take care not decrease blood pressure too far given HCM on echo but this afternoon patient's blood pressure is hypertensive at 185/83 Encourage IS (3) Hypertension: * Chronic. Elevated this evening - continue lasix as above * Continue hydralazine 50mg TID * Cr on AM 1.10 - resumed HCTZ * BMP in AM to ensure stability of Cr (4) Dyslipidemia: * Continue atorvastatin (5) LBBB (left bundle branch block): * Follows with Dr. Aleman. 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 Parish * Patient has a CHADs vasc of 11.2% (11) Obstructive sleep apnea: * CPAP with patient from home -- utilizes with nasal pillows. To be continued (12) KAYLEIGH (acute kidney injury): * Cr bumped to 1.46 and already received her HCTZ 08/08 * Given IVF with Cr improved to 1.1 * IVF as above for today then d/c * Avoid nephrotoxic agents when possible, renally dose medications * BMP in AM (13) DVT prophylaxis: * Chemical means contraindicated * Drain will be pulled tomorrow before discharge and can resume anticoagulation at that time per Dr. Parish's orders. Admission and Anticipated Discharge Date Admission Date: August 07, 2020 Subjective Ms. Somers continues to be hypoxic with ambulation. She was very winded when up and moving about both times that I saw her today. She does not have a cough or chest pain. Daughter was updated over the phone Review of Systems Constitutional: no fever, no chills and no body aches Respiratory: as per Subjective / HPI Cardiovascular: no chest pain, no dyspnea and no palpitations Gastrointestinal: no abdominal pain, no nausea, no vomiting and no diarrhea/loose stools Genitourinary: no dysuria and no urinary hesitancy Musculoskeletal: no back pain and no joint pain Integumentary: no rash Physical Exam Physical Exam: General: no distress Eyes: normal inspection, PERLL Respiratory: chest non tender, clear to auscultation, normal breath sounds, no respiratory distress, no accessory muscle use Cardiac: regular rate and rhythm, no rub or gallop, no murmur, no edema, no jvd GI/: active bowel sounds, no abd pain or tenderness, soft, non distended Extremities: normal range of motion, normal strength, non tender Neuro/Psych: alert and oriented x 3, normal mood and affect Skin: normal color, dry Results & Data Results & Data ([facility]) Vital Signs (Past 12 Hours) Vital Signs Temp Pulse Resp BP BP Pulse Ox 08/10/20 15:41 37.0 C 74 18 185/83 H 93 08/10/20 13:23 73 150/57 H 08/10/20 11:38 79 L 08/10/20 07:43 36.7 C 69 18 118/64 91 PG Care Time/CCT Total # of Minutes Spent Total Time Spent with Patient: Total time spent is greater than 50% in coordination of care (as documented) at patient's floor/unit and/or counseling patient: Coding Level of Care Code 27732 Subseq Hosp Care Lvl 3 Diagnoses Neurogenic claudication due to lumbar spinal stenosis M48.062 Hypoxia R09.02 Hypertension I10 Hypertension type: essential hypertension Dyslipidemia E78.5 LBBB (left bundle branch block) I44.7 Diabetes E11.42; Z79.4 Diabetes mellitus complication detail: with polyneuropathy Diabetes mellitus complication status: with neurologic complications Diabetes mellitus exterminator insulin use: with exterminator use Diabetes mellitus type: type 2 Hypothyroid E03.9 Hypothyroidism type: acquired GERD (gastroesophageal reflux disease) K21.9 Esophagitis presence: esophagitis presence not specified BPPV (benign paroxysmal positional vertigo) H81.10 Stroke I63.9 CVA mechanism: unspecified Obstructive sleep apnea G47.33 KAYLEIGH (acute kidney injury) N17.9 DVT prophylaxis Z29.9 (1) Diabetes Diabetes mellitus complication detail: with polyneuropathy Diabetes mellitus complication status: with neurologic complications Diabetes mellitus mcfp insulin use: with mcfp use Diabetes mellitus type: type 2 Qualified Code(s): E11.42 - Type 2 diabetes mellitus with diabetic polyneuropathy; Z79.4 - terminal gauger (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
[2020-08-10] MEDS ORDERED: ATORVASTATIN 40 MG TAB PO SCH (21:00)
[2020-08-10] MEDS: APIXABAN 5 MG TABLET PO SCH (21:40)
[2020-08-10] MEDS: DULoxetine HCL 30 MG CAP PO SCH (21:40)
[2020-08-10] MEDS: METOPROLOL SUCC 50MG EXT REL TAB PO SCH (21:46)
[2020-08-10] MEDS: DOCUSATE SODIUM/SENNA 50/8.6MG TAB PO SCH (21:46)
[2020-08-10] MEDS: buPROPion HCl 100 MG TABLET PO SCH (21:47)
[2020-08-11] MEDS: POLYETHYLENE (MIRALAX) 17 GM PACK PO SCH ×2 (00:02→05:34)
[2020-08-11] MEDS: HYDROCODONE/ACETAMOPHEN 5/325MG TAB PO PRN ×3 (00:02→11:41)
[2020-08-11] MEDS: CARBOHYDRATES FOR HYPOGLYCEMIA PO PRN (00:19)
[2020-08-11] MEDS: LEVOTHYROXINE SODIUM 88 MCG TABLET PO SCH (05:34)
[2020-08-11 06:46] LABS: Hematocrit (blood only) 35.3 % (37-47); Hemoglobin 11.1 g/dL (12.0-16.0); Mean Corpuscular Hemoglobin 28.3 pg (25-34); Mean Corpuscular Hgb Conc 31.4 g/dL (32-36); Mean Corpuscular Volume 90.1 fL (80-100); Mean Platelet Volume 11.5 fL (7.4-10.4); Platelet Count 242 K/uL (130-400); RDW Coefficient of Variation 14.7 % (11.5-14.5); RDW Standard Deviation 48.2 fL (36.4-46.3); Red Blood Count 3.92 M/uL (4.2-5.4); White Blood Count 9.65 K/uL (4.8-10.8)
[2020-08-11 07:19] LABS: BUN Creatinine Ratio 22.4 (10-20); Calcium 8.2 mg/dl (8.5-10.1); Creatinine Clr Calc Pharmacy 47.3 ml/min; Est GFR (African American) 48.4; Est GFR (Non-African American) 41.8; Potassium 3.8 mmol/L (3.5-5.1)
[2020-08-11] MEDS: hydrALAZINE TAB 50 MG TAB PO SCH (08:47)
[2020-08-11] MEDS: CEROVITE ADV FORMULA TAB PO SCH (08:47)
[2020-08-11] MEDS: APIXABAN 5 MG TABLET PO SCH (08:47)
[2020-08-11] MEDS: hydroCHLOROthiazide 25 MG TAB PO SCH (08:47)
[2020-08-11] MEDS: INSULIN ASPART 100 UNITS/ML 3 ML PEN SC SCH (08:52)
[2020-08-11] MEDS ORDERED: FLUTICASONE/VILANTEROL 100/25MCG 14 PUFFS/INHALER INH SCH (09:00)
--- NOTE | 2020-08-11 10:23 | Orthopedic Progress Note ---
Date of Service August 11, 2020 Assessment & Plan (1) Neurogenic claudication due to lumbar spinal stenosis: Admission and Anticipated Discharge Date Admission Date: August 07, 2020 This time the patient is improving appropriately. Plan for discharge home sanjiv parmar. Subjective Patient's back pain is controlled leg symptoms continue to improve. She is experiencing less short of breath today. Physical Exam Physical Exam: Patient appears comfortable is good strength testing. Results & Data ([facility]) Vital Signs (Past 12 Hours) Vital Signs Temp Pulse Pulse Pulse Pulse Pulse Pulse 08/11/20 09:40 83 97 H 91 H 87 79 08/11/20 07:11 36.7 C 63 08/10/20 23:56 37.2 C 65 Resp Resp Resp Resp Resp Resp BP 08/11/20 09:40 16 18 18 18 16 08/11/20 07:11 18 134/55 L 08/10/20 23:56 14 145/63 H Pulse Ox Pulse Ox Pulse Ox Pulse Ox Pulse Ox Pulse Ox 08/11/20 09:40 92 92 87 L 93 88 L 08/11/20 07:11 95 08/10/20 23:56 93
--- NOTE | 2020-08-11 10:35 | Pharmacy Report ---
Pharmacy Glycemic Short Note 2 - Date of Service August 11, 2020 - Glycemic Short BSG Results (Last 24 hours): 08/10/20 08/10/20 08/10/20 12:07 17:11 17:12 Glucose POC Glucose 166 H 68 L* 67 L* 08/10/20 08/10/20 08/11/20 17:32 20:52 00:15 Glucose POC Glucose 81 71 48 L* 08/11/20 08/11/20 08/11/20 00:32 06:15 07:52 Glucose 103 H POC Glucose 79 80 OUTPATIENT ANTIDIABETIC REGIMEN: * Lantus 55 units SQ BID * Lispro 14 units SQ AC * A1c = 9.5% ASSESSMENT: 08/11: * Patient received 128 units of insulin yesterday, of which 90 were basal * BSGs trending down yesterday, likely related to too tight CF/CR which had been used with steroids. Steroids now worn off / will loosen CF/CR this AM * Fasting on lower end of range at 80 mg/dL - will ensure BSG trending up / plan to give Lantus with lunch time check PLAN FOR INPATIENT GLYCEMIC CONTROL: * Basal insulin * Lantus 35-45 units bid * Bolus insulin * NovoLog per scale ACHS or Q6hrs while NPO * Goal Range: Low 110 mg/dL - High 140 mg/dL * Correction Factor: 20 mg/dL/unit * Nutritional / Prandial insulin per carb ratio of 1 unit per 6 grams CHO consumed PLAN FOR DISCHARGE: * Patient's A1c (9.5%) indicates sub-optimal glycemic control as an outpt. Goal A1c ~ 7.5% * Patient typically uses dosing range for meal time insulin up to 14 units with meals. Spoke with provider as plan to discharge soon. Would recommend continuation of home basal insulin. Could consider increasing meal time insulin to 14 units TIDM as long as po intake okay. Would recommend close follow up on discharge with monitoring of BSGs
[2020-08-11] MEDS ORDERED: INSULIN GLARGINE 100 UNIT/ML VIAL SC ONE (12:45)
--- NOTE | 2020-08-11 13:39 | Hospitalist Progress Note ---
Date of Service August 11, 2020 Assessment & Plan (1) Neurogenic claudication due to lumbar spinal stenosis: * POD#4 s/p L5-S1 decompression fusion with Dr. Parish 08/07. EBL 100cc. On eliquis for hx CVA/DVT * H/h dropped to 11.3/36.1 -- acute blood loss anemia from surgery/dilutional from IVF - stable * PT/OT/bowel regimen/DVT prophylaxis per primary service (2) Hypoxia: Secondary to congestive changes on CXR - likely diastolic CHF as EF on mos t recent echo was normal Sent for CTA 08/10 given persistent sob and hypoxia despite lasix 20 mg x 2 doses yesterday and today. CTA showed no evidence of PE. She does have mild pulmonary edema and trace pleural effusions Echo 07/2020 showed EF 58%, hypertrophic cardiomyopathy without mention of outflow obstruction Given Lasix diurese last evening - now with elevated bicarb, likely some contraction alkalosis and slight decrease in kidney function so will hold off on any further diuresis 2 step showing need for 2L for rest and 4L with ambulation -script given to case management Encourage IS (3) Hypertension: * Chronic. Elevated this evening - continue lasix as above * Continue hydralazine 50mg TID * Resumed HCTZ * Lasix as above (4) Dyslipidemia: * Continue atorvastatin (5) LBBB (left bundle branch block): * Follows with Dr. Aleman. 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 Recommend patient call her pcp if sugars are consistently running over 200 over the next couple of days * Continue to monitor (7) Hypothyroid: * Continue levothyroxine 88mcg daily. 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 To be continued (12) KAYLEIGH (acute kidney injury): * Resolved * Given IVF with Cr improved to 1.1, 1.25 today * Avoid nephrotoxic agents when possible, renally dose medications (13) DVT prophylaxis: * Eliquis Admission and Anticipated Discharge Date Admission Date: August 07, 2020 Supervising Physician Co-Signing Physician Notes Patient seen and examined with [place] GARCIAS. I agree with her exam aftab shankar, review of systems, assessment and plan. I discussed the discharge with Dr. Parish, she is good to go from our perspective still with hypoxia, two step showed she needed 2L at rest and 4L on exertion CTA chest showed no evidence of PE, no clear pulmonary edema most likely etiology of ongoing hypoxia is some atelectasis with shunt physiology that will improve with time recommend follow up with PCP in a week to check on oxygen needs Subjective Ms. Somers continues to desaturate when she ambulates. She is not coughing, no chest pain. She is a little dizzy but reports she has a history of vertigo and otherwise feels ok Physical Exam Physical Exam: General: no distress Eyes: normal inspection, PERLL Respiratory: chest non tender, clear to auscultation, normal breath sounds, no respiratory distress, no accessory muscle use Cardiac: regular rate and rhythm, no rub or gallop, no murmur, no edema, no jvd GI/: active bowel sounds, no abd pain or tenderness, soft, non distended Extremities: normal range of motion, normal strength, non tender Neuro/Psych: alert and oriented x 3, normal mood and affect Skin: normal color, dry Results & Data Results & Data ([facility]) Vital Signs (Past 12 Hours) Vital Signs Temp Pulse Pulse Pulse Pulse Pulse Pulse 08/11/20 11:47 36.7 C 70 63 08/11/20 09:40 83 97 H 91 H 87 08/11/20 07:11 36.7 C 63 Pulse Resp Resp Resp Resp Resp Resp 08/11/20 11:47 18 08/11/20 09:40 79 16 18 18 18 16 08/11/20 07:11 18 BP BP Pulse Ox Pulse Ox Pulse Ox Pulse Ox Pulse Ox 08/11/20 11:47 118/64 134/55 L 95 08/11/20 09:40 92 92 87 L 93 08/11/20 07:11 134/55 L 95 Pulse Ox 08/11/20 11:47 08/11/20 09:40 88 L 08/11/20 07:11 PG Care Time/CCT Total # of Minutes Spent Total Time Spent with Patient: Total time spent is greater than 50% in coordination of care (as documented) at patient's floor/unit and/or counseling patient: Coding Level of Care Code 05044 Subseq Hosp Care Lvl 3 Diagnoses Neurogenic claudication due to lumbar spinal stenosis M48.062 Hypoxia R09.02 Hypertension I10 Hypertension type: essential hypertension Dyslipidemia E78.5 LBBB (left bundle branch block) I44.7 Diabetes E11.42; Z79.4 Diabetes mellitus complication detail: with polyneuropathy Diabetes mellitus complication status: with neurologic complications Diabetes mellitus web methods developer insulin use: with web methods developer use Diabetes mellitus type: type 2 Hypothyroid E03.9 Hypothyroidism type: acquired GERD (gastroesophageal reflux disease) K21.9 Esophagitis presence: esophagitis presence not specified BPPV (benign paroxysmal positional vertigo) H81.10 Stroke I63.9 CVA mechanism: unspecified Obstructive sleep apnea G47.33 KAYLEIGH (acute kidney injury) N17.9 DVT prophylaxis Z29.9 (1) Diabetes Diabetes mellitus complication detail: with polyneuropathy Diabetes mellitus complication status: with neurologic complications Diabetes mellitus custodial insulin use: with web methods developer use Diabetes mellitus type: type 2 Qualified Code(s): E11.42 - Type 2 diabetes mellitus with diabetic polyneuropathy; Z79.4 - poultry 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
--- NOTE | 2020-08-20 15:10 | Coding Query ---
CONGESTIVE HEART FAILURE To Promote full compliance with coding requirements relating to patient care, physician participation is requested in all cases of mainframe systems engineer uncertainty. Please assist us with the following questions. A diagnosis of Congestive Heart Failure is documented in the patient's medical record. Progress note mentions diastolic heart failure; 08/09 progress note documents Acute/Chronic Heart Failure postop. Thanks for your help! Horacio Prabhakar, DIAGRAM CLERK CCS SYSTOLIC HEART FAILURE ( ) Acute ( ) Chronic ( ) Acute on Chronic ( ) Rheumatic ( ) Unknown DIASTOLIC HEART FAILURE ( ) Acute ( ) Chronic ( ) Acute on Chronic ( ) Rheumatic ( ) Unknown COMBINED SYSTOLIC AND DIASTOLIC HEART FAILURE ( ) Acute ( ) Chronic ( ) Acute on Chronic ( ) Rheumatic ( ) Unknown Was the CHF Present On Admission? Please check the appropriate box: ( ) Present on Admission ( ) Not Present On Admission ( ) Clinically undetermined Thank you Horacio JONES
--- NOTE | 2020-09-02 06:04 | Coding Query ---
CONGESTIVE HEART FAILURE To Promote full compliance with coding requirements relating to patient care, physician participation is requested in all cases of instant print operator uncertainty. Please assist us with the following questions. A diagnosis of Congestive Heart Failure is documented in the patient's medical record. To accurately code this diagnosis and to compare patient severity, we ask that you specify the type of heart failure by placing an X within the parenthesis (x). Hospitalist progress note 08/09 documented ACDF .. Thanks for your help! Horacio Prabhakar, PARUL CCS SYSTOLIC HEART FAILURE ( ) Acute ( ) Chronic ( ) Acute on Chronic ( ) Rheumatic ( ) Unknown DIASTOLIC HEART FAILURE ( ) Acute ( ) Chronic ( ) Acute on Chronic ( ) Rheumatic ( ) Unknown COMBINED SYSTOLIC AND DIASTOLIC HEART FAILURE ( ) Acute ( ) Chronic ( ) Acute on Chronic ( ) Rheumatic ( ) Unknown Was the CHF Present On Admission? Please check the appropriate box: ( ) Present on Admission ( ) Not Present On Admission ( ) Clinically undetermined MTDD
--- NOTE | 2020-09-02 06:04 | Coding Query ---
CONGESTIVE HEART FAILURE To Promote full compliance with coding requirements relating to patient care, physician participation is requested in all cases of scaffold setter uncertainty. Please assist us with the following questions. A diagnosis of Congestive Heart Failure is documented in the patient's medical record. To accurately code this diagnosis and to compare patient severity, we ask that you specify the type of heart failure by placing an X within the parenthesis (x). Hospitalist note 08/09 documented ACDF postop. Thanks for your help! PARUL Hubbard CCS SYSTOLIC HEART FAILURE ( ) Acute ( ) Chronic ( ) Acute on Chronic ( ) Rheumatic ( ) Unknown DIASTOLIC HEART FAILURE ( ) Acute ( ) Chronic ( ) Acute on Chronic ( ) Rheumatic ( ) Unknown COMBINED SYSTOLIC AND DIASTOLIC HEART FAILURE ( ) Acute ( ) Chronic ( ) Acute on Chronic ( ) Rheumatic ( ) Unknown Was the CHF Present On Admission? Please check the appropriate box: ( ) Present on Admission ( ) Not Present On Admission ( ) Clinically undetermined Thank you Horacio JONES
== END 2020-08-11 13:20 | disposition home or self-care (01) | DRG 454 ==
LOC: ASU 11:41 → 3W 16:28